=== PATIENT | female | born 1935 | race Caucasian/White ===

== ENCOUNTER 2017-05-15 16:06 | Emergency (ER) ==
[2017-05-15 16:10] VITALS: BP 172/72; TEMP 97.5; BMI 39.6
--- NOTE | 2017-05-15 16:28 | ED.PDOC ---
General ED Provider: Dr. KAYLAH JOE JR Chief Complaint: Back Pain Stated Complaint: back started hurting on monday and got better then woke up hurting monday. complains of pain to right lumbar area radiating to her knee [ End ]97.5 89 20 95% 172/72 10 Time Seen by Physician: 16:25 Mode of Arrival: Wheelchair Information Source: Patient Exam Limitations: No limitations Primary Care Provider: APOLINAR BARNES Nursing and Triage Documentation Reviewed and Agree: No Review of Systems - Review Of Systems Constitutional: Reports: No symptoms Eyes: Reports: No symptoms Ears, Nose, Mouth, Throat: Reports: No symptoms Respiratory: Reports: No symptoms Cardiac: Reports: No symptoms GI: Reports: No symptoms : Reports: No symptoms Musculoskeletal: Reports: Back pain, Joint pain Skin: Reports: No symptoms Neurological: Reports: No symptoms Endocrine: Reports: No symptoms Hematologic/Lymphatic: Reports: No symptoms All Other Systems: Other Past Medical History - Past Medical History Endocrine: Reports: Hypothyroid Cardiovascular: Reports: Hypertension, CHF Respiratory: Reports: COPD Hematological: Reports: None Gastrointestinal: Reports: None Genitourinary: Reports: CKD Neuro/Psych: Reports: Anxiety, Depression Musculoskeletal: Reports: None Cancer: Reports: None Last Menstrual Period: none - Surgical History General Surgical History: Reports: Hysterectomy, Orthopedic (Bilateral Knee replacement), Unknown - Family History Family History: Reports: Unknown - Social History Smoking Status: Former smoker Hx Substance Use: No Alcohol Screening: None Physical Exam - Physical Exam Appearance: Well-appearing, Obese Pain Distress: Moderate Eyes: JORDAN, EOMI, Conjunctiva clear ENT: Ears normal, Nose normal, Oropharynx normal Neck: Supple Respiratory: Airway patent, Breath sounds clear, Breath sounds equal, Respirations nonlabored Cardiovascular: RRR, Pulses normal, No rub, No murmur GI/: Soft, Nontender, No masses, Bowel sounds normal, No Organomegaly Musculoskeletal: Normal strength, ROM intact, No edema, No calf tenderness ( tender right lat thigh and paraspinal area on left also bilteral lower leg tenderness(chronic)), Calf tenderness (chronic- improved per patient) Skin: Warm, Dry, Normal color Neurological: Sensation intact, Motor intact, Reflexes intact, Cranial nerves intact, Alert, Oriented Psychiatric: Affect appropriate, Mood appropriate Interpretation - Radiology Interpretation Radiology Interpretation By: Radiologist Radiology Results: No acute changes Exam Interpreted: Other (knee) Critical Care Note - Critical Care Note Total Time (mins): 0 Course - Course Orders, Labs, Meds: Lab Review 05/15/17 17:05 Urine Color Yellow Urine Clarity Clear Urine pH 7.0 Ur Specific [place] 1.015 Urine Protein Negative Urine Glucose (UA) Negative Urine Ketones Negative Urine Blood Trace-intact Urine Nitrite Negative Urine Bilirubin Negative Urine Urobilinogen 0.2 Ur Leukocyte Esterase Negative Urine Microscopic RBC 0-2 Ur Squamous Epith Cells 0-2 Urine Bacteria Trace Orders Category Date Time Status UA [URINALYSIS C & S IF INDICATED] Stat LAB 05/15/17 17:05 Completed Acetaminophen with Codeine [Tylenol #3 Tab] MEDS 05/15/17 16:34 Discontinued 1 tab PO ONCE STA CT LUMBAR SPINE W/O CONTRAST Stat RADS 05/15/17 16:26 Completed KNEE, RIGHT 4 VIEWS Stat RADS 05/15/17 16:26 Completed Medications Discontinued Medications Generic Name Dose Route Start Last Admin Trade Name Freq PRN Reason Stop Dose Admin Acetaminophen/Codeine Phosphate 1 tab 05/15/17 16:34 05/15/17 17:10 Tylenol #3 Tab PO 05/15/17 16:35 1 tab ONCE STA Administration Vital Signs: Temp Pulse Resp BP Pulse Ox 05/15/17 16:06 97.5 F L 89 20 172/72 H 95 Departure - Departure Time of Disposition: 17:43 Disposition: HOME SELF-CARE Discharge Problem: Back pain with right-sided sciatica, Microscopic hematuria Instructions: Sciatica (ED), Acute Low Back Pain (ED), Lower Back Exercises (ED ), Hematuria (ED) Condition: Good Pt referred to PMD for follow-up: Yes Additional Instructions: daily light exercise Tylenol #3 as needed for pain recommend recheck urine 1-2 weeks trace of blood today Please follow-up with Dr. Barnes in 1-5 days. Prescriptions: Acetaminophen with Codeine [Tylenol #3 Tab] 1 - 2 tab PO QID PRN #20 tablet PRN Reason: PAIN Allergies/Adverse Reactions: Allergies hydrocodone [From Lortab] Adverse Reaction (Verified 05/15/17 16:11) meperidine HCl [From Demerol] Adverse Reaction (Verified 05/15/17 16:11) pregabalin [From Lyrica] Adverse Reaction (Verified 05/15/17 16:11) Home Medications: Ambulatory Orders Citalopram Hydrobromide [Celexa] 20 mg PO DAILY 11/21/13 Clonazepam [Klonopin] 0.5 mg PO BID 11/21/13 Levothyroxine Sodium [Synthroid] 75 mcg PO QDAC 11/21/13 Montelukast Sodium [Singulair] 10 mg PO BEDTIME 11/21/13 Tramadol HCl [Ultram] 50 mg PO TID PRN 11/21/13 Fluticasone/Salmeterol 250/50 [Advair 250-50 Diskus] 1 puff IH BID 07/17/16 Nitroglycerin [Nitrostat] 0.4 mg SL Q5MIN X 3 DOSES PRN 07/17/16 Nystatin [Nystop Powder] 1 applic TP BID 07/17/16 Potassium Chloride [K-Dur] 20 meq PO TID 07/17/16 Pravastatin Sodium [Pravachol] 80 mg PO DAILY 07/17/16 Acetaminophen with Codeine [Tylenol #3 Tab] 1 - 2 tab PO QID PRN #20 tablet Allopurinol [Zyloprim] 100 mg PO DAILY 05/15/17 Metolazone [Zaroxolyn] 2.5 mg PO 3 TIMES PER WEEK 05/15/17 Pantoprazole Sodium 40 mg PO BID 05/15/17 Triamcinolone Acetonide [Triamcinolone Acetonide 0.1% Cream] 80 gm TP TID PRN
[2017-05-15] MEDS ORDERED: TYLENOL #3 TAB PO STA (16:34)
--- NOTE | 2017-05-15 16:58 | DI ---
EXAM: Four views of the right knee. History: Right knee pain. Findings: No acute fracture or dislocation. Grossly intact right total knee arthroplasty hardware. Diffuse subcutaneous edema. Atherosclerotic vascular calcifications appear mild Impression: No acute osseous abnormality. Intact hardware. Diffuse subcutaneous edema.
--- NOTE | 2017-05-15 17:06 | CT ---
EXAM: CT of the lumbar spine without contrast History: Lower back pain. Technique: Multiplanar CT images through the lumbar spine were obtained without the administration of IV contrast Findings: Atherosclerotic vascular calcifications. Colonic diverticulosis. Osteopenia. Mild dext roscoliosis centered within the mid lumbar spine. Mild degenerative changes of bilateral sacroiliac joints. Severe degenerative disc disease at L3-L4, L4, L5 and L5-S1 with endplate sclerosis and osteophyte f ormation. Mild to moderate degenerative disc disease at L2-L3. No acute fracture or subluxation. T12-L1: No significant disc bulge, central canal stenosis or neural foraminal narrowing. L1-L2: No significant disc bulge, central canal stenosis or neural foraminal narrowing. L2-L3: Small disc bulge effacing the anterior thecal sac with no significant central canal stenosis . Mild to moderate bilateral bony neural foraminal narrowing secondary to ligamentous and facet hyp ertrophy. L3-L4: Posterior disc osteophyte complex mildly narrowing the central canal. Severe left and modera te to severe right bony neural foraminal narrowing secondary to ligamentous and facet hypertrophy. L4-L5: Posterior disc osteophyte complex mildly narrowing the central canal. Severe bilateral bony neural foraminal narrowing secondary to ligamentous and facet hypertrophy. L5, S1: Small posterior disc osteophyte complex mildly narrowing central canal. Severe bilateral b verna neural foraminal narrowing secondary to ligamentous and facet hypertrophy. Impression: 1. No acute osseous abnormality of the lumbar spine. 2. Severe degenerative disc disease. 3. Level by level analysis as detailed above with multilevel mild central canal stenosis and severe neural foraminal narrowing within the lower lumbar spine. 4. Colonic diverticulosis.
[2017-05-15 17:23] LABS: ADD URINE MICROSCOPIC YES; BILIRUBIN,URINE Negative (NEGATIVE); KETONES,URINE Negative (NEGATIVE); LEUKOCYTE ESTERASE ,URINE Negative (NEGATIVE); NITRITE,URINE Negative (NEGATIVE); PROTEIN,URINE Negative (NEGATIVE); URINE, BLOOD Trace-intact (NEGATIVE)
[2017-05-15 17:28] LABS: BACTERIA,URINE TRACE (NOT PRESENT)
== END 2017-05-15 17:54 | disposition home or self-care (01) ==
LOC: ED 16:06
DX: M54.41 Lumbago with sciatica, right side (principal); R31.29 Other microscopic hematuria; M25.561 Pain in right knee; Z79.899 Other long term (current) drug therapy
CPT/HCPCS: 81001; 99283

== ENCOUNTER 2017-05-29 06:34 | Day surgery (SDC) ==
[2017-05-29] MEDS ORDERED: TETRACAINE 0.5% OPTH SOL OP ONE ×3 (07:10→07:40)
[2017-05-29] MEDS ORDERED: AK-DILATE 10% OPTH SOL OP ONE ×3 (07:10→07:20)
[2017-05-29] MEDS ORDERED: CYCLOGYL 2% OPTH OP ONE ×3 (07:10→07:20)
[2017-05-29] MEDS ORDERED: OCUFEN 0.03% OPTH SOL OP ONE ×3 (07:10→07:40)
[2017-05-29] MEDS ORDERED: LIDOCAINE 1% 20 ML MDV ID ONE (07:17)
[2017-05-29] MEDS ORDERED: ALBUTEROL 0.083% NEB NEB STA (07:37)
[2017-05-29] MEDS ORDERED: DIAMOX PO ONE (09:16)
[2017-05-29] MEDS ORDERED: DIAMOX ONE (09:16)
[2017-05-29] MEDS ORDERED: SUBLIMAZE ONE (09:30)
[2017-05-29] MEDS ORDERED: VERSED ONE (09:30)
[2017-05-29 09:34] VITALS: BP 130/68; TEMP 97.6
[2017-05-29] MEDS ORDERED: VOLTAREN 0.1% OPTH SOL OP PRN (12:56)
[2017-05-29] MEDS ORDERED: OCUFEN 0.03% OPTH SOL OP PRN (12:56)
[2017-05-29] MEDS ORDERED: AK-DILATE 10% OPTH SOL OP PRN (12:56)
[2017-05-29] MEDS ORDERED: TETRACAINE 0.5% UNIT-DOSE OP PRN (12:56)
[2017-05-29] MEDS ORDERED: CYCLOGYL 2% OPTH OP PRN (12:56)
--- NOTE | 2017-05-29 13:22 | OP ---
PREOPERATIVE DIAGNOSIS: CATARACT, LEFT EYE. POSTOPERATIVE DIAGNOSIS: SAME. OPERATION PHACOEMULSIFICATION ASPIRATION OF CATARACT LEFT EYE. PLACEMENT OF POSTERIOR CHAMBER LENS. PHACO TIME 1:08.2 SECONDS AT 16% POWER. LENS MODEL CHARLIE [id number]. DIOPTER +25.0D. TECHNIQUE: CLEAR CORNEA. ANESTHESIA: TOPICAL ANESTHESIA W/ANESTHESIA MONITORING. OPERATIVE REPORT: Topical anesthesia consisting of Tetracaine was applied to the cornea and Xylocaine Methyl Paraben free of MFP was injected intracamerally into the anterior chamber. The patient was then brought into the operating room , prepped and draped in the usual ophthalmic manner. A lid speculum was placed and the operating microscope was used. A paracentesis was made at the 3 o' clock position. A clear corneal incision was made just out to the limbus. The anterior chamber was entered just inside the clear cornea. Viscoelastic was injected into the anterior chamber. A capsulotomy was performed with a bent # 27 gauge needle. Phacoemulsification was then performed in the posterior chamber. After completion of the phacoemulsification, residual cortical material was aspirated with the irrigation-aspiration system. The posterior capsule was polished. Viscoelastic was injected into the anterior and posterior chambers to inflate the capsular bag. Lens were placed via an Unfolder system and stabilized in the bag. Viscoelastic was removed from the anterior chamber. The wound was checked for any leakage. The four sponges were removed from the fornix. Topical antibiotic steroid and nonsteroidal drops were also applied to the cornea. A Young shield was applied. The patient left the operating room in good condition without any complications. INTRAOPERATIVE MEDICATIONS: Xylocaine Methyl Paraben Free MPF MTDD
== END 2017-05-29 10:12 | disposition home or self-care (01) ==
LOC: SURG 06:34
PROVIDERS: ATTEND Ophthalmology
DX: H25.13 Age-related nuclear cataract, bilateral (principal)
CPT/HCPCS: 94640

== ENCOUNTER 2017-07-31 08:22 | Day surgery (SDC) | payer OTHER ==
[2017-07-31] MEDS: TETRACAINE 0.5% UNIT-DOSE OP PRN ×3 (11:00→11:30)
[2017-07-31] MEDS: CYCLOGYL 2% OPTH OP PRN ×3 (11:00→11:10)
[2017-07-31] MEDS: AK-DILATE 10% OPTH SOL OP PRN ×3 (11:00→11:10)
[2017-07-31] MEDS: KETOROLAC 0.5% OPTH SOL OP PRN ×3 (11:00→11:30)
[2017-07-31] MEDS ORDERED: LIDOCAINE 1% 20 ML MDV ID ONE (11:18)
[2017-07-31] MEDS ORDERED: VERSED ONE (11:30)
[2017-07-31] MEDS ORDERED: BETADINE OPTH PREP OP ONE ×2 (12:04)
[2017-07-31] MEDS ORDERED: TIMOPTIC 0.5% OPTH OP ONE (12:04)
[2017-07-31] MEDS ORDERED: OCUFEN 0.03% OPTH SOL OP ONE (12:04)
[2017-07-31] MEDS ORDERED: OCUFLOX 0.3% OPTH SOL OP ONE (12:04)
[2017-07-31] MEDS ORDERED: DIAMOX PO ONE (13:17)
[2017-07-31 13:42] VITALS: BP 127/63; TEMP 98.7
--- NOTE | 2017-08-01 08:37 | OP ---
PREOPERATIVE DIAGNOSIS: RIGHT EYE. POSTOPERATIVE DIAGNOSIS: SAME. OPERATION PHACOEMULSIFICATION ASPIRATION OF CATARACT RIGHT EYE. PLACEMENT OF POSTERIOR CHAMBER LENS. PHACO TIME 1:15 SECONDS AT 13.0% POWER. LENS MODEL CHARLIE [id number]. DIOPTER +25.5D. TECHNIQUE: CLEAR CORNEA. ANESTHESIA: TOPICAL ANESTHESIA W/ANESTHESIA MONITORING. OPERATIVE REPORT: Topical anesthesia consisting of Tetracaine was applied to the cornea and Xylocaine Methyl Paraben free of MFP was injected intracamerally into the anterior chamber. The patient was then brought into the operating room , prepped and draped in the usual ophthalmic manner. A lid speculum was placed and the operating microscope was used. A paracentesis was made at the 3 o' clock position. A clear corneal incision was made just out to the limbus. The anterior chamber was entered just inside the clear cornea. Viscoelastic was injected into the anterior chamber. A capsulotomy was performed with a bent # 27 gauge needle. Phacoemulsification was then performed in the posterior chamber. After completion of the phacoemulsification, residual cortical material was aspirated with the irrigation-aspiration system. The posterior capsule was polished. Viscoelastic was injected into the anterior and posterior chambers to inflate the capsular bag. Lens were placed via an Unfolder system and stabilized in the bag. Viscoelastic was removed from the anterior chamber. The wound was checked for any leakage. The four sponges were removed from the fornix. Topical antibiotic steroid and nonsteroidal drops were also applied to the cornea. A Young shield was applied. The patient left the operating room in good condition without any complications. INTRAOPERATIVE MEDICATIONS: Xylocaine Methyl Paraben Free MPF MTDD
== END 2017-07-31 13:51 | disposition home or self-care (01) ==
LOC: SURG 08:22
PROVIDERS: ATTEND Ophthalmology
DX: H25.11 Age-related nuclear cataract, right eye (principal); Z96.1 Presence of intraocular lens

== ENCOUNTER 2017-12-18 19:37 | Inpatient (IN) ==
[2017-12-18] MEDS ORDERED: SOLU-MEDROL 125 MG IVP STA (20:08)
[2017-12-18] MEDS ORDERED: DUONEB NEB STA (20:08)
--- NOTE | 2017-12-18 20:15 | ED.PDOC ---
General ED Provider: Dr. HERMINIO ABERNATHY Chief Complaint: Shortness of Air Stated Complaint: Patient had the flu approximately three weeks ago. Patient states that since that time she has had generalized body pain and shortness of air that has gotten increasingly worse. Time Seen by Physician: 19:49 Mode of Arrival: Walk-In Information Source: Patient Primary Care Provider: APLOINAR BARNES Nursing and Triage Documentation Reviewed and Agree: Yes Reviewed sepsis parameters & appropriate labs ordered?: Yes System Inflammatory Response Syndrome: Not Applicable Sepsis Protocol: For patient's 13 years and over: Temp is 96.8 and below OR 101 and greater Pulse >90 BPM Resp >20/minute Acutely Altered Mental Status Are patient's symptoms suggestive of a new infection, such as: -Pneumonia -Skin, Soft Tissue -Endocarditis -UTI -Bone, Joint Infection -Implantable Device -Acute Abdominal Infection -Wound Infection -Meningitis -Blood Stream Catheter Infection -Unknown System Inflammatory Response Syndrome: Not Applicable Review of Systems - Review Of Systems Constitutional: Reports: Malaise, Weakness, Loss of appetite, Other (weight loss ) Respiratory: Reports: Cough, Short of air, Wheezing Cardiac: Reports: No symptoms GI: Reports: Nausea, Poor appetite, Poor fluid intake. Denies: Vomiting : Reports: No symptoms Musculoskeletal: Reports: No symptoms Skin: Reports: No symptoms Neurological: Reports: Anxiety Hematologic/Lymphatic: Reports: No symptoms All Other Systems: Reviewed and Negative Past Medical History - Past Medical History Endocrine: Reports: Hypothyroid Cardiovascular: Reports: Hypertension, CHF Respiratory: Reports: COPD Hematological: Reports: None Gastrointestinal: Reports: None Genitourinary: Reports: CKD Neuro/Psych: Reports: Anxiety, Depression Musculoskeletal: Reports: None Cancer: Reports: None Last Menstrual Period: HYSTERECTOMY - Surgical History General Surgical History: Reports: Hysterectomy, Orthopedic (Bilateral Knee replacement), Unknown - Family History Family History: Reports: Unknown - Social History Smoking Status: Former smoker Hx Substance Use: No Alcohol Screening: None - Immunizations Tetanus Shot up to Date: No Physical Exam - Physical Exam Appearance: Ill-appearing Pain Distress: Mild Neck: Supple Respiratory: Breath sounds diminished, Wheezes Cardiovascular: RRR, Pulses normal, No rub, No murmur GI/: Soft, Nontender, No masses, Bowel sounds normal, No Organomegaly Musculoskeletal: Normal strength, ROM intact, No edema, No calf tenderness Skin: Warm, Dry, Normal color Neurological: Alert, Oriented Psychiatric: Anxious Interpretation - Radiology Interpretation Radiology Interpretation By: Radiologist Radiology Results: Negative Re-Evaluation - Re-Evaluation Time of Re-Evaluation: 22:00 Status: Improved Vital Signs Stable: Yes Pain Level: mild Physician Notification - Case Discussed Physician Notified: Barnes Time of Notification: 21:43 ([facility] Critical Care Note - Critical Care Note Total Time (mins): 35 Course - Course Hematology/Chemistry: 12/18/17 20:12 12/18/17 20:12 Orders, Labs, Meds: Lab Review 12/18/17 12/18/17 12/18/17 20:09 20:12 20:12 WBC 9.37 RBC 4.38 Hgb 13.9 Hct 40.7 MCV 92.9 MCH 31.7 H MCHC 34.2 RDW Coeff of Michael 12.7 Plt Count 302 Immature Gran % (Auto) 0.7 Neut % (Auto) 78.4 Lymph % (Auto) 11.4 [place] % (Auto) 7.5 Eos % (Auto) 1.5 Baso % (Auto) 0.5 Immature Gran # (Auto) 0.1 Neut # 7.3 H Lymph # 1.1 [place] # 0.7 Eos # 0.1 Baso # 0.1 Puncture Site Rr O2 Saturation 98.0 ABG pH 7.521 H* ABG pCO2 28.3 L ABG pO2 85.0 ABG HCO3 23.1 ABG Total CO2 24 ABG Base Excess 0 Bobby Test + FiO2 % 21.0 Sodium 141 Potassium 3.2 L Chloride 104 Carbon Dioxide 25 Anion Gap 15.2 BUN 34 H Creatinine 1.49 H Estimated GFR (MDRD) 34.00 BUN/Creatinine Ratio 22.81 Glucose 169 H Lactic Acid Calcium 10.3 H Total Bilirubin 0.7 AST 13 L ALT 12 Alkaline Phosphatase 65 Total Protein 7.9 Albumin 3.3 L Globulin 4.6 Albumin/Globulin Ratio 0.72 Procalcitonin Influenza A (Rapid) Influenza B (Rapid) 12/18/17 12/18/17 12/18/17 20:12 20:12 20:12 WBC RBC Hgb Hct MCV MCH MCHC RDW Coeff of Michael Plt Count Immature Gran % (Auto) Neut % (Auto) Lymph % (Auto) [place] % (Auto) Eos % (Auto) Baso % (Auto) Immature Gran # (Auto) Neut # Lymph # [place] # Eos # Baso # Puncture Site O2 Saturation ABG pH ABG pCO2 ABG pO2 ABG HCO3 ABG Total CO2 ABG Base Excess Bobby Test FiO2 % Sodium Potassium Chloride Carbon Dioxide Anion Gap BUN Creatinine Estimated GFR (MDRD) BUN/Creatinine Ratio Glucose Lactic Acid 15.6 Calcium Total Bilirubin AST ALT Alkaline Phosphatase Total Protein Albumin Globulin Albumin/Globulin Ratio Procalcitonin 0.08 Influenza A (Rapid) Negative by naat Influenza B (Rapid) Negative by naat Orders Category Date Time Status ABG DRAW REQUEST Stat CARDIO 12/18/17 20:09 Completed NEBULIZER TREATMENT Routine CARDIO 12/18/17 21:55 Ordered NEBULIZER TREATMENT Stat CARDIO 12/18/17 20:09 Completed ACTIVITY .Early Mobilization for VTE Prevention CARE 12/18/17 21:53 Ordered INTAKE & OUTPUT Q8HR CARE 12/18/17 21:53 Ordered IV ACCESS ONCE CARE 12/18/17 19:59 Active VITAL SIGNS Q4HR CARE 12/18/17 21:53 Ordered REGULAR DIET DIETARY 12/18/17 Breakfast Ordered ED APPLY O2 .ONCE EMERGENCY 12/18/17 19:59 Active ED TEA BAG MACHINE TENDER APPLIED .ONCE EMERGENCY 12/18/17 19:59 Active ED VITAL SIGNS Q1HR EMERGENCY 12/18/17 19:59 Active ABG Stat LAB 12/18/17 20:09 Completed BASIC METABOLIC PANEL DAILY@0600 LAB 12/19/17 06:00 Ordered BASIC METABOLIC PANEL DAILY@0600 LAB 12/20/17 06:00 Ordered CBC W/ AUTO DIFF DAILY@0600 LAB 12/19/17 06:00 Ordered CBC W/ AUTO DIFF DAILY@0600 LAB 12/20/17 06:00 Ordered CBC W/ AUTO DIFF Stat LAB 12/18/17 20:12 Completed COMPREHENSIVE METABOLIC PANEL Stat LAB 12/18/17 20:12 Completed FLU A/B MOLECULAR Stat LAB 12/18/17 20:12 Completed LACTIC ACID Stat LAB 12/18/17 20:12 Completed MOLECULAR GROUP A STREP Stat LAB 12/18/17 20:12 Completed PROCALCITONIN Stat LAB 12/18/17 20:12 Completed Allopurinol [Zyloprim] MEDS 12/19/17 09:00 Ordered 100 mg PO DAILY Aspirin [Aspirin EC] MEDS 12/19/17 08:00 Ordered 81 mg PO DAILYWM Azithromycin [Zithromax] MEDS 12/18/17 21:53 Stat 500 mg PO ONCE STA Ceftriaxone Sodium [Rocephin] 1 gm MEDS 12/18/17 22:00 Ordered 0.9 % Sodium Chloride [Sodium Chloride] 50 ml IV DAILY Citalopram Hydrobromide [Celexa] MEDS 12/19/17 09:00 Ordered 20 mg PO DAILY Clonazepam [Klonopin] MEDS 12/19/17 09:00 Ordered 0.5 mg PO BID Fluticasone/Salmeterol 250/50 [Advair 250-50 Diskus] MEDS 12/19/17 09:00 Ordered 1 puff IH BID Ipratropium/Albuterol Neb [Duoneb] MEDS 12/18/17 20:08 Discontinued 1 vial NEB ONCE STA Ipratropium/Albuterol Neb [Duoneb] MEDS 12/19/17 06:00 Ordered 1 vial NEB RTQID Levothyroxine Sodium [Synthroid] MEDS 12/19/17 06:30 Ordered 75 mcg PO QDAC Methylprednisolone Sod Succ/Pf [Solu-Medrol 125 mg] MEDS 12/18/17 20:08 Discontinued 125 mg IVP ONCE STA Methylprednisolone Sod Succ/Pf [Solu-Medrol 125 mg] MEDS 12/19/17 05:00 Ordered 125 mg IVP Q8HR Metolazone [Zaroxolyn] MEDS 12/18/17 22:00 Ordered 2.5 mg PO 3 TIMES PER WEEK Metoprolol Succinate [Toprol Xl] MEDS 12/19/17 09:00 Ordered 50 mg PO DAILY Montelukast Sodium [Singulair] MEDS 12/19/17 21:00 Ordered 10 mg PO BEDTIME Nitroglycerin [Nitrostat] MEDS 12/18/17 21:56 Ordered 0.4 mg SL Q5MIN X 3 DOSES PRN Nystatin [Nystop Powder] MEDS 12/19/17 09:00 Ordered 1 applic TP BID Parker-3 Fatty Acids/Fish Oil [Fish Oil 1,000 mg Capsule MEDS 12/19/17 09:00 Ordered ] 1 each PO BID Pantoprazole Sodium [Protonix] MEDS 12/19/17 09:00 Ordered 40 mg PO BID Potassium Chloride [K-Dur] MEDS 12/19/17 09:00 Ordered 20 meq PO TID Pravastatin Sodium [Pravachol] MEDS 12/19/17 09:00 Ordered 80 mg PO DAILY Sodium Chloride 0.9% [Sodium Chloride] 1,000 ml MEDS 12/18/17 22:00 Ordered IV 100 mls/hr Tolterodine Tartrate MEDS 12/19/17 09:00 Ordered 4 mg PO DAILY Tramadol HCl [Ultram] MEDS 12/18/17 21:56 Ordered 50 mg PO TID PRN RESUSCITATION STATUS Routine OTHERS 12/18/17 21:53 Ordered CHEST, 1V AP ONLY Stat RADS 12/18/17 19:59 Completed PT CONSULT Routine THERAPIES 12/18/17 Ordered Medications Generic Name Dose Route Start Last Admin Trade Name Freq PRN Reason Stop Dose Admin Albuterol/Ipratropium 1 vial 12/19/17 06:00 Duoneb NEB RTQID KADNACE Allopurinol 100 mg 12/19/17 09:00 Zyloprim PO DAILY [facility] Aspirin 81 mg 12/19/17 08:00 Aspirin Ec PO DAILYWM [facility] Citalopram Hydrobromide 20 mg 12/19/17 09:00 Celexa PO DAILY KANDACE Clonazepam 0.5 mg 12/19/17 09:00 Klonopin PO BID [facility] Ceftriaxone Sodium 1 gm/ 50 mls @ 75 mls/hr 12/18/17 22:00 Sodium Chloride IV DAILY KANDACE Sodium Chloride 1,000 mls @ 100 mls/hr 12/18/17 22:00 Sodium Chloride IV .Q10H [facility] Levothyroxine Sodium 75 mcg 12/19/17 06:30 Synthroid PO QDAC [facility] Methylprednisolone Sodium Succinate 125 mg 12/19/17 05:00 Solu-Medrol 125 Mg IVP Q8HR [facility] Metolazone 2.5 mg 12/18/17 22:00 Zaroxolyn PO 3 TIMES PER WEEK KANDACE Metoprolol Succinate 50 mg 12/19/17 09:00 Toprol Xl PO DAILY [facility] Montelukast Sodium 10 mg 12/19/17 21:00 Singulair PO BEDTIME KANDACE Non-Formulary Medication 1 each 12/19/17 09:00 Parker-3 Fatty Acids/Fish Oil [Fish Oil 1,000 Mg Capsule] PO BID KANDACE Nystatin 1 applic 12/19/17 09:00 Nystop Powder TP BID KANDACE Pantoprazole Sodium 40 mg 12/19/17 09:00 Protonix PO BID KANDACE Potassium Chloride 20 meq 12/19/17 09:00 K-Dur PO TID KANDACE Fluticasone/Salmeterol 1 puff 12/19/17 09:00 Advair 250-50 Diskus IH BID KANDACE Discontinued Medications Generic Name Dose Route Start Last Admin Trade Name Freq PRN Reason Stop Dose Admin Albuterol/Ipratropium 1 vial 12/18/17 20:08 12/18/17 20:40 Duoneb NEB 12/18/17 20:09 1 vial ONCE STA Administration Azithromycin 500 mg 12/18/17 21:53 Zithromax PO 12/18/17 21:54 ONCE STA Methylprednisolone Sodium Succinate 125 mg 12/18/17 20:08 Solu-Medrol 125 Mg IVP 12/18/17 20:09 ONCE STA Vital Signs: Temp Pulse Resp BP Pulse Ox 12/18/17 20:08 86 26 H 144/78 H 12/18/17 19:37 98.0 F 90 20 137/73 93 L Departure - Departure Time of Disposition: 22:02 Disposition: ADMITTED INPATIENT Discharge Problem: COPD exacerbation Condition: Stable Pt referred to PMD for follow-up: Yes IPMP verified?: No Allergies/Adverse Reactions: Allergies hydrocodone [From Lortab] Adverse Reaction (Verified 12/18/17 19:42) meperidine HCl [From Demerol] Adverse Reaction (Verified 12/18/17 19:42) pregabalin [From Lyrica] Adverse Reaction (Verified 12/18/17 19:42) Home Medications: Ambulatory Orders Citalopram Hydrobromide [Celexa] 20 mg PO DAILY 11/21/13 Clonazepam [Klonopin] 0.5 mg PO BID 11/21/13 Levothyroxine Sodium [Synthroid] 75 mcg PO QDAC 11/21/13 Montelukast Sodium [Singulair] 10 mg PO BEDTIME 11/21/13 Tramadol HCl [Ultram] 50 mg PO TID PRN 11/21/13 Fluticasone/Salmeterol 250/50 [Advair 250-50 Diskus] 1 puff IH BID 07/17/16 Nitroglycerin [Nitrostat] 0.4 mg SL Q5MIN X 3 DOSES PRN 07/17/16 Nystatin [Nystop Powder] 1 applic TP BID 07/17/16 Potassium Chloride [K-Dur] 20 meq PO TID 07/17/16 Pravastatin Sodium [Pravachol] 80 mg PO DAILY 07/17/16 Allopurinol [Zyloprim] 100 mg PO DAILY 05/15/17 Metolazone [Zaroxolyn] 2.5 mg PO 3 TIMES PER WEEK 05/15/17 Pantoprazole Sodium 40 mg PO BID 05/15/17 Aspirin [Aspirin EC] 81 mg PO DAILYWM 07/28/17 Metoprolol Succinate [Toprol Xl] 50 mg PO DAILY 07/28/17 Parker-3 Fatty Acids/Fish Oil [Fish Oil 1,000 mg Capsule] 1 each PO BID 07/28/17 Tolterodine Tartrate [Detrol LA] 4 mg PO DAILY 07/28/17
--- NOTE | 2017-12-18 20:54 | DI ---
EXAM: Chest, one-view HISTORY: Cough FINDINGS: Cardiac and mediastinal contours are normal. Pulmonary vasculature is normal. Lungs are clear. Atherosclerotic calcification of the aorta. Bony thorax is unremarkable. IMPRESSION: No acute cardiopulmonary disease.
[2017-12-18] MEDS ORDERED: ZITHROMAX PO STA (21:53)
[2017-12-18] MEDS ORDERED: ULTRAM PO PRN (21:56)
[2017-12-18] MEDS ORDERED: NITROSTAT SL PRN (21:56)
[2017-12-18] MEDS ORDERED: ROCEPHIN 1 GM in SODIUM CHLORIDE 50 ML IV SCH (22:00)
[2017-12-18] MEDS ORDERED: SODIUM CHLORIDE 1,000 ML IV SCH (22:00)
[2017-12-18] MEDS ORDERED: ZAROXOLYN PO SCH (22:00)
[2017-12-18] MEDS ORDERED: K-DUR PO STA (22:34)
[2017-12-18] MEDS ORDERED: ROCEPHIN ONE (22:40)
[2017-12-18 23:25] VITALS: BMI 35.2
[2017-12-18] MEDS: TESSALON PERLES PO SCH (23:26)
[2017-12-18] MEDS ORDERED: SODIUM CHLORIDE 50 ML IV ONE (23:26)
[2017-12-18] MEDS: SODIUM CHLORIDE 1,000 ML IV SCH (23:26)
[2017-12-19] MEDS: SOLU-MEDROL 125 MG IVP SCH ×3 (04:24→20:09)
[2017-12-19] MEDS ORDERED: SYNTHROID PO SCH (06:30)
[2017-12-19] MEDS: DUONEB NEB SCH ×4 (06:30→20:14)
[2017-12-19] MEDS: ADVAIR 250-50 DISKUS IH SCH ×2 (08:45→20:09)
[2017-12-19] MEDS: NYSTOP POWDER TP SCH ×2 (08:45→20:10)
[2017-12-19] MEDS: ASPIRIN EC PO SCH (08:46)
[2017-12-19] MEDS: TESSALON PERLES PO SCH ×3 (08:46→20:10)
[2017-12-19] MEDS: TOPROL XL PO SCH (08:46)
[2017-12-19] MEDS: PROTONIX PO SCH ×2 (08:46→16:10)
[2017-12-19] MEDS: OMEGA-3 FISH OIL PO SCH ×2 (08:47→20:10)
[2017-12-19] MEDS: ZYLOPRIM PO SCH (08:47)
[2017-12-19] MEDS: PRAVACHOL PO SCH (08:47)
[2017-12-19] MEDS: ZITHROMAX PO SCH (08:47)
--- NOTE | 2017-12-19 08:58 | PCM.PROG ---
Attending Provider: ATTENDING PROVIDER: Dr. APOLINAR BARNES This patient is seen with Liana Solis, Nurse Practitioner. DATE OF SERVICE: 12/19/17 SUBJECTIVE: This 82 year old WHITE/ F was hospitalized 12/18/17. The patient is sitting on side of bed, alert. Shortness of breath slightly improved. She has been up to bathroom. REVIEW OF SYSTEMS: CONSTITUTIONAL: No night sweats. No fatigue, malaise, lethargy. No fever or chills. HEENT: Eyes: No visual changes. No eye pain. No eye discharge. ENT: No runny nose. No epistaxis. No sinus pain. No odynophagia. No congestion. RESPIRATORY: Cough and wheezing. No hemoptysis. No shortness of breath. CARDIOVASCULAR: No angina symptoms. No CHF symptoms. No atypical chest pain for CAD. No palpitations. No orthopnea.. GASTROINTESTINAL: No abdominal pain. No nausea or vomiting. No diarrhea or constipation. No hematemesis. No hematochezia. GENITOURINARY: No urgency. No frequency. No dysuria. No hematuria. No obstructive symptoms. No discharge. No pain. No significant abnormal bleeding. MUSCULOSKELETAL: No musculoskeletal pain; no joint swelling. NEUROLOGICAL: Awake, alert, oriented to time, place and person. No headache. No neck pain. No syncope. No seizures. No dizziness. PSYCHIATRIC: Not anxious. No depression. No suicidal thoughts. No homicidal thoughts. SKIN: No rash. No lesions. No wounds. ENDOCRINE: No unexplained weight loss. No weight gain. HEMATOLOGIC/LYMPHATIC: No anemia. No purpura. No petechiae. No prolonged or excessive bleeding. No palpable lymph nodes. PHYSICAL EXAMINATION: GENERAL: The patient is awake, alert and oriented, lying in bed in no distress. VITAL SIGNS: Temperature 97.6 F, Pulse 84, Respiratory Rate 18, BP 120/60, Pulse Ox 94% HEENT: Head normocephalic, atraumatic. Eyes: Extraocular muscles are intact. Pupils are equal, round and reactive to light and accommodation. Ears: No lesions. Nose appeared normal. Throat: No exudate or erythema. NECK: Supple. No JVD, no carotid bruit. No lymphadenopathy or thyromegaly. LUNGS: Diminished breath sounds bilaterally with expiratory wheezing. Percussion note normal. Chest symmetrical. HEART: S1, S2, no S3. No murmurs. No cyanosis or clubbing. No ascites. Pulses: Dorsalis pedis and posterior tibial pulses +1 to +2 both sides. ABDOMEN: Soft. Non-tender. Bowel sounds active. No CVA tenderness. No mass felt. EXTREMITIES: Trace leg edema. Full range of motion of all extremities, equal. NEUROLOGIC: No focal deficit. Cranial nerves II through XII are grossly intact. No headache, no double vision or headache. SKIN: Not dry. Intact. Turgor-normal. LYMPHATIC: No palpable lymph nodes/no lymphedema. MUSCULOSKELETAL: Normal joints with no swelling. Muscle tone is normal. LAB REVIEW: 12/19/17 05:10 12/19/17 05:10 12/19/17 05:10: Sodium 137, Potassium 4.0, Chloride 104, Carbon Dioxide 20 L, Anion Gap 17.0, BUN 33 H, Creatinine 1.58 H, Estimated GFR (MDRD) 31.00, BUN/ Creatinine Ratio 20.88, Glucose 347 H D, Calcium 9.5 12/19/17 05:10: WBC 9.95, RBC 3.94 L, Hgb 12.3, Hct 36.9 L, MCV 93.7, MCH 31.2 H , MCHC 33.3, RDW Coeff of Michael 12.6, Plt Count 283, Immature Gran % (Auto) 0.9, Neut % (Auto) 89.8, Lymph % (Auto) 8.5 L, [place] % (Auto) 0.6, Eos % (Auto) 0.0, Baso % (Auto) 0.2, Immature Gran # (Auto) 0.1, Neut # 8.9 H, Lymph # 0.9, [place] # 0.1 L, Eos # 0.0, Baso # 0.0 ASSESSMENT: ACUTE BRONCHITIS SOB COPD WITH EXACERBATION ACUTE ON CHRONIC KIDNEY DISEASE PLAN: Make Potassium 20 daily Continue Iv fluids and nebs Plan and coordination of the patient's care discussed in the presence of Out Patient Therapist and nurse. CONDITION: Stable SCRIBED BY: SERGE MONK Cloth Worker scribed while in presence of service performed by Dr. Barnes/Liana Solis APRN on 12/19/17 ([id number])
[2017-12-19] MEDS ORDERED: NON-FORMULARY MEDICATION (Pravastatin Sodium [Pravachol] 80 MG) PO SCH (09:00)
[2017-12-19] MEDS ORDERED: CELEXA PO SCH (09:00)
[2017-12-19] MEDS ORDERED: KLONOPIN PO SCH (09:00)
[2017-12-19] MEDS ORDERED: NON-FORMULARY MEDICATION (Tolterodine Tartrate 4 MG) PO SCH (09:00)
[2017-12-19] MEDS ORDERED: NON-FORMULARY MEDICATION (Omega-3 Fatty Acids/Fish Oil [Fish Oil 1,000 Mg Capsule] 1 EACH) PO SCH (09:00)
[2017-12-19] MEDS ORDERED: K-DUR PO SCH (09:00)
[2017-12-19] MEDS ORDERED: MYLICON PO STA (10:51)
--- NOTE | 2017-12-19 14:32 | PN ---
DATE OF SERVICE: 12/18/17 SUBJECTIVE: 82 year old white female hospitalized with acute bronchitis and chronic lung disease. The patient has bronchitis type of symptoms for past 2-3 weeks. It is the point where she is unable to rest at night and she has lost 10-15 pounds. The patient has no symptoms of congestive heart failure or coronary insufficiency. The patient's atrial blood gasses are excellent with pO2 of more than 75 with oxygen saturation 97% on room air with normal pH. Electrolyte and CBC was normal except for potassium of 3.2 for which she will be given extra Potassium supplements. The patient has history of smoking with COPD and also has coronary artery disease. ASSESSMENT: 1. Acute bronchitis with COPD 2. Cardiovascular status is stable. PLAN: 1. Given Rocephin,Zithromax, steroids, NEBS treatments and IV fluids at 50cc per hour CONDITION: Stable. TIME SPENT: More than 30 minutes. Plan and coordination of the patient's care discussed in the presence of nurse. DESIRE
[2017-12-19] MEDS: CELEXA PO SCH (20:09)
[2017-12-19] MEDS: KLONOPIN PO SCH (20:09)
[2017-12-19] MEDS: ROCEPHIN 1 GM in SODIUM CHLORIDE 50 ML IV SCH (20:09)
[2017-12-19] MEDS: DITROPAN XL PO SCH (20:10)
[2017-12-19] MEDS: SINGULAIR PO SCH (20:10)
[2017-12-19] MEDS: GI COCKTAIL PO PRN (20:44)
[2017-12-20] MEDS: SOLU-MEDROL 125 MG IVP SCH ×3 (05:33→20:29)
[2017-12-20] MEDS: PROTONIX PO SCH ×2 (05:35→17:14)
[2017-12-20] MEDS: SYNTHROID PO SCH (05:35)
[2017-12-20] MEDS: DUONEB NEB SCH (05:48)
[2017-12-20] MEDS ORDERED: DUONEB NEB PRN (08:35)
[2017-12-20] MEDS: ASPIRIN EC PO SCH (09:33)
[2017-12-20] MEDS: OMEGA-3 FISH OIL PO SCH ×2 (09:33→20:29)
[2017-12-20] MEDS: ADVAIR 250-50 DISKUS IH SCH ×2 (09:33→20:30)
[2017-12-20] MEDS: TOPROL XL PO SCH (09:34)
[2017-12-20] MEDS: K-DUR PO SCH (09:34)
[2017-12-20] MEDS: ZYLOPRIM PO SCH (09:34)
[2017-12-20] MEDS: TESSALON PERLES PO SCH ×3 (09:34→20:29)
[2017-12-20] MEDS: NYSTOP POWDER TP SCH ×2 (09:34→20:30)
[2017-12-20] MEDS: ZITHROMAX PO SCH (09:34)
[2017-12-20] MEDS: PRAVACHOL PO SCH (09:34)
--- NOTE | 2017-12-20 09:34 | DI ---
EXAM: Fluoroscopic upper GI HISTORY: Difficulty swallowing. Patient with extensive medical history and difficulty changing posit ion and remaining upright.. COMPARISON: CT abdomen 07/19/2016 FINDINGS: Effervescent crystals were administered to patient prior to examination. Real time fluoros copic evaluation was performed with images provided for purposes of dictation. There is no focal dil atation or stenosis. There is no filling defect or mass. There are tertiary waves of the distal eso phagus with a small hiatal hernia present. Throughout this examination. There is mild to moderate r eflux into the distal esophagus. The stomach is distended with no visualized filling defect or mass. Patient was unable to reposition while lying down and and subsequent upright image demonstrated con trast extending into the duodenum and crossing midline. IMPRESSION: 1. No stenosis, mass or focal dilatation of the esophagus. 2. Tertiary waves are consistent with dysmotility. 3. Small hiatal hernia and mild to moderate reflux.
--- NOTE | 2017-12-20 11:25 | PCM.PROG ---
Attending Provider: ATTENDING PROVIDER: Dr. APOLINAR BARNES DATE OF SERVICE: 12/20/17 SUBJECTIVE: This 82 year old WHITE/ F was hospitalized 12/18/17 hospitalized with acute asthmatic bronchitis which seems to have improved. She has problems related to esophagus, swallowing and reflux. No CHF or coronary insufficiency problems. She has lost 15 lbs according to her. No fever, no chills. Not much cough. REVIEW OF SYSTEMS: CONSTITUTIONAL: No night sweats. No fatigue, malaise, lethargy. No fever or chills. HEENT: Eyes: No visual changes. No eye pain. No eye discharge. ENT: No runny nose. No epistaxis. No sinus pain. No odynophagia. No congestion. RESPIRATORY: No cough, no congestion. No hemoptysis. No shortness of breath. CARDIOVASCULAR: No angina symptoms. No CHF symptoms. No atypical chest pain for CAD. No palpitations. No orthopnea.. GASTROINTESTINAL: No abdominal pain. No nausea or vomiting. No diarrhea or constipation. No hematemesis. No hematochezia. GENITOURINARY: No urgency. No frequency. No dysuria. No hematuria. No obstructive symptoms. No discharge. No pain. No significant abnormal bleeding. MUSCULOSKELETAL: No musculoskeletal pain; no joint swelling. NEUROLOGICAL: Awake, alert, oriented to time, place and person. No headache. No neck pain. No syncope. No seizures. No dizziness. PSYCHIATRIC: Not anxious. No depression. No suicidal thoughts. No homicidal thoughts. SKIN: No rash. No lesions. No wounds. ENDOCRINE: No unexplained weight loss. No weight gain. HEMATOLOGIC/LYMPHATIC: No anemia. No purpura. No petechiae. No prolonged or excessive bleeding. No palpable lymph nodes. PHYSICAL EXAMINATION: GENERAL: The patient is awake, alert and oriented, sitting in bed in no distress. VITAL SIGNS: Temperature 98.3 F, Pulse 89, Respiratory Rate 16, BP 116/63, Pulse Ox 93% HEENT: Head normocephalic, atraumatic. Eyes: Extraocular muscles are intact. Pupils are equal, round and reactive to light and accommodation. Ears: No lesions. Nose appeared normal. Throat: No exudate or erythema. NECK: Supple. No JVD, no carotid bruit. No lymphadenopathy or thyromegaly. LUNGS: Decreased breath sounds. Clear to auscultation. Percussion note normal. Chest symmetrical. HEART: S1, S2, no S3. No murmurs. No cyanosis or clubbing. No ascites. Pulses: Dorsalis pedis and posterior tibial pulses +1 to +2 both sides. ABDOMEN: Soft. Non-tender. Bowel sounds active. No CVA tenderness. No mass felt. EXTREMITIES: No edema. Full range of motion of all extremities, equal. NEUROLOGIC: No focal deficit. Cranial nerves II through XII are grossly intact. No headache, no double vision or headache. SKIN: Warm and dry. Intact. Turgor-normal. LYMPHATIC: No palpable lymph nodes/no lymphedema. MUSCULOSKELETAL: Normal joints with no swelling. Muscle tone is normal. LAB REVIEW: 12/20/17 04:50 12/20/17 04:50 12/20/17 04:50: Sodium 138, Potassium 4.2, Chloride 105, Carbon Dioxide 20 L, Anion Gap 17.2, BUN 32 H, Creatinine 1.48 H, Estimated GFR (MDRD) 34.00, BUN/ Creatinine Ratio 21.62, Glucose 229 H D, Calcium 10.1 12/20/17 04:50: WBC 18.66 H D, RBC 3.68 L, Hgb 11.8 L, Hct 34.1 L, MCV 92.7, MCH 32.1 H, MCHC 34.6, RDW Coeff of Michael 13.0, Plt Count 302, Immature Gran % ( Auto) 1.0, Neut % (Auto) 87.9, Lymph % (Auto) 6.2 L, [place] % (Auto) 4.8, Eos % ( Auto) 0.0, Baso % (Auto) 0.1, Immature Gran # (Auto) 0.2, Neut # (Auto) 16.4 H, Lymph # (Auto) 1.2, [place] # (Auto) 0.9, Eos # (Auto) 0.0, Baso # (Auto) 0.0 12/19/17 10:45: Total Creatine Kinase 57, Troponin I 0.0200 ASSESSMENT: 1. Acute asthmatic bronchitis 2. She use to be a smoker - quit 3. Coronary artery disease 4. Chronic lung disease 5. Obesity 6. Chronic kidney disease 7. Anemia 8. Dysphagia 9. Diabetes mellitus PLAN: 1. Barium swallow 2. Reflux measures 3. Increase Protonix to 40 mg 4. May have to refer to gastroenteritis 5. GI cocktail 6. Upper GI 7. Discussed with patient not to eat late at night; no coffee or chocolate late at night (three hours before bedtime) Plan and coordination of the patient's care discussed in the presence of Lacquer Dipping Machine Operator and nurse. CONDITION: Stable SCRIBED BY: SERGE MONK Outreach Representative scribed while in presence of service performed by Dr. APOLINAR BARNES on 12/20/17 ([id number])
[2017-12-20] MEDS: GI COCKTAIL PO PRN (12:13)
[2017-12-20] MEDS: SODIUM CHLORIDE 1,000 ML IV SCH (12:30)
[2017-12-20] MEDS: SINGULAIR PO SCH (20:29)
[2017-12-20] MEDS: CELEXA PO SCH (20:29)
[2017-12-20] MEDS: ROCEPHIN 1 GM in SODIUM CHLORIDE 50 ML IV SCH (20:29)
[2017-12-20] MEDS: DITROPAN XL PO SCH (20:29)
[2017-12-20] MEDS: KLONOPIN PO SCH (20:29)
[2017-12-21] MEDS: PROTONIX PO SCH ×2 (05:58→16:59)
[2017-12-21] MEDS: SOLU-MEDROL 125 MG IVP SCH ×3 (05:58→22:03)
[2017-12-21] MEDS: SYNTHROID PO SCH (05:58)
[2017-12-21] MEDS: ASPIRIN EC PO SCH (09:05)
[2017-12-21] MEDS: ZYLOPRIM PO SCH (09:06)
[2017-12-21] MEDS: TOPROL XL PO SCH (09:06)
[2017-12-21] MEDS: OMEGA-3 FISH OIL PO SCH ×2 (09:06→21:22)
[2017-12-21] MEDS: PRAVACHOL PO SCH (09:06)
[2017-12-21] MEDS: TESSALON PERLES PO SCH ×3 (09:06→21:23)
[2017-12-21] MEDS: K-DUR PO SCH (09:06)
[2017-12-21] MEDS: REGLAN PO SCH ×2 (09:06→16:59)
[2017-12-21] MEDS: ADVAIR 250-50 DISKUS IH SCH ×2 (09:07→21:23)
[2017-12-21] MEDS: NYSTOP POWDER TP SCH ×2 (09:07→21:23)
--- NOTE | 2017-12-21 09:52 | HP ---
DATE OF SERVICE: 12/18/17 HISTORY OF PRESENT ILLNESS: This is an 82-year-old female with history of COPD who presented to the emergency room with coughing and shortness of breath. She stated that she has had coughing and chest congestion off and on for the past several weeks, last night started getting worse. PAST MEDICAL HISTORY: Severe osteoarthritis Degenerative joint disease of the C-spine Hypertension Coronary artery disease Chronic kidney disease, Stage 3 to 4 History of CHF COPD, wears 02 at night Dyslipidemia Depression History of right upper lobe nodule B12 deficiency PAST SURGICAL HISTORY: Right RCA 2009 Stent placement REVIEW OF SYSTEMS: CONSTITUTIONAL: Positive for fatigue. No night sweats. No malaise, lethargy. No fever or chills. HEENT: Eyes: No visual changes. No eye pain. No eye discharge. ENT: No runny nose. No epistaxis. No sinus pain. No sore throat. No odynophagia. No ear pain. No congestion. RESPIRATORY: Positive for cough. No congestion. No hemoptysis. Positive for shortness of breath. CARDIOVASCULAR: No angina symptoms. No CHF symptoms. No atypical chest pain for CAD. No palpitations. No orthopnea. GASTROINTESTINAL: No abdominal pain. No nausea or vomiting. No diarrhea or constipation. No hematemesis. No hematochezia. GENITOURINARY: No urgency. No frequency. No dysuria. No hematuria. No obstructive symptoms. No discharge. No pain. No significant abnormal bleeding. MUSCULOSKELETAL: No musculoskeletal pain. No joint swelling. No arthritis. NEUROLOGICAL: No headache. No neck pain. No syncope. No seizures. No dizziness. PSYCHIATRIC: Not anxious. No depression. No suicidal thoughts. No homicidal thoughts. SKIN: No rash. No lesions. No wounds. ENDOCRINE: No unexplained weight loss. No weight gain. HEMATOLOGIC/LYMPHATIC: No anemia. No purpura. No petechiae. No prolonged or excessive bleeding. No palpable lymph nodes. PERSONAL/FAMILY/SOCIAL HISTORY: The patient is a previous smoker. She currently lives at home by herself. No alcohol or illicit drug use. MEDICATIONS: (HOME) Celexa 20 mg p.o. daily Klonopin 0.5 mg p.o. b.i.d. Synthroid 75 mcg p.o. q.d a.c. Singulair 10 mg p.o. bedtime Ultram 50 mg p.o. t.i.d. p.r.n. Nystatin one application TP b.i.d. Advair one puff IH b.i.d. Pravachol 80 mg p.o. daily Nitrostat 0.4 mg SL q.5 min times three doses p.r.n. K-Dur 20 mEq p.o. t.i.d. Zaroxolyn 2.5 mg p.o. three times per week Zyloprim 100 mg p.o. daily Pantoprazole 40 mg p.o. b.i.d. Aspirin 81 mg p.o. daily with meal [place] 3 fatty acids/fish oil one each p.o. b.i.d. Toprol XL 50 mg p.o. daily Ditropan XL 5 mg p.o. bedtime Vasotec 5 mg p.o. daily ALLERGIES: HYDROCODONE, MEPERIDINE HCI, PREGABALIN PHYSICAL EXAMINATION: VITAL SIGNS: Temperature 97.6, heart rate 84, respirations 18, BP 120/60, pulse ox 94% on room air. HEENT: Head normocephalic, atraumatic. Eyes: Extraocular muscles are intact. Pupils are equal, round and reactive to light and accommodation. Ears: No lesions. Nose appeared normal. Throat: No exudate or erythema. NECK: Supple. No JVD, no carotid bruit. No lymphadenopathy or thyromegaly. LUNGS: Diminished breath sounds bilaterally with bilateral rhonchi and inspiratory and expiratory wheezing. Percussion note normal. Chest symmetrical. HEART: Regular heart sounds. S1, S2, no S3. No murmurs. No cyanosis or clubbing. No ascites. Pulses: Dorsalis pedis and posterior tibial pulses +1 to +2 both sides. ABDOMEN: Soft. Nontender. Bowel sounds active. No CVA tenderness. No mass felt. EXTREMITIES: Trace leg edema. Full range of motion of all extremities, equal. NEUROLOGIC: Alert and oriented times three. No focal deficit. Cranial nerves II through XII are grossly intact. No headache, no double vision or headache. SKIN: Not dry. Intact. Turgor - normal. LYMPHATIC: No palpable lymph nodes/no lymphedema. MUSCULOSKELETAL: Normal joints with no swelling. Muscle tone is normal. Chest x-ray revealed no acute cardiopulmonary disease. Sodium 141, potassium 3.2 , BUN 34, creatinine 1.49, glucose 169, total bili 0.7, AST 13, ALT 12, total protein 7.9. White count 9.37, hemoglobin 13.9, hematocrit 40.7, platelets 302. Rapid Flu A & B are both negative. ABGs on room air pH 7.521, pc02 28.3, p02 85 , base excess of 0, bicarb 23.1, TC02 24. ASSESSMENT: 1. ACUTE BRONCHITIS 2. COPD WITH EXACERBATION 3. SHORTNESS OF BREATH 4. ACUTE ON CHRONIC KIDNEY FAILURE WITH MILD DEHYDRATION 5. WEAKNESS PLAN: 1. We will admit 2. Place on NS IV at 75 cc/hr 3. Start Rocephin 1 gm IV daily 4. Zithromax 500 mg p.o. daily times three days 5. Start Solu-Cortef 125 mg IV q.8hr 6. Xopenex neb treatments q.6hr scheduled 7. Oxygen as needed 8. Tessalon Perles 200 mg t.i.d. as needed for cough 9. Continue home medications 10. Daily CBC, CMP 11. Regular low sodium diet 12. Will follow closely TIME SPENT: More than 70 minutes. MTDD
--- NOTE | 2017-12-21 11:26 | PCM.PROG ---
Attending Provider: ATTENDING PROVIDER: Dr. APOLINAR BARNES DATE OF SERVICE: 12/21/17 SUBJECTIVE: This 82 year old WHITE/ F was hospitalized 12/18/17 with COPD, and acute bronchitis. The patient had choking. Further workup showed she had tertiary waves consistent with esophageal dysmotility and also mild to moderate reflux. She will be treated with small dose of Reglan and proton pump inhibitors. REVIEW OF SYSTEMS: CONSTITUTIONAL: No night sweats. No fatigue, malaise, lethargy. No fever or chills. HEENT: Eyes: No visual changes. No eye pain. No eye discharge. ENT: No runny nose. No epistaxis. No sinus pain. Throat: Difficulty swallowing. No congestion. RESPIRATORY: Mild cough, no congestion. No hemoptysis. No shortness of breath. CARDIOVASCULAR: No angina symptoms. No CHF symptoms. No atypical chest pain for CAD. No palpitations. No orthopnea.. GASTROINTESTINAL: No abdominal pain. No nausea or vomiting. No diarrhea or constipation. No hematemesis. No hematochezia. GENITOURINARY: No urgency. No frequency. No dysuria. No hematuria. No obstructive symptoms. No discharge. No pain. No significant abnormal bleeding. MUSCULOSKELETAL: No musculoskeletal pain; no joint swelling. NEUROLOGICAL: Awake, alert, oriented to time, place and person. No headache. No neck pain. No syncope. No seizures. No dizziness. PSYCHIATRIC: Not anxious. No depression. No suicidal thoughts. No homicidal thoughts. SKIN: No rash. No lesions. No wounds. ENDOCRINE: No unexplained weight loss. No weight gain. HEMATOLOGIC/LYMPHATIC: No anemia. No purpura. No petechiae. No prolonged or excessive bleeding. No palpable lymph nodes. PHYSICAL EXAMINATION: GENERAL: The patient is awake, alert and oriented, lying/sitting in bed in no distress. VITAL SIGNS: Temperature 97.8 F, Pulse 80, Respiratory Rate 16, BP 126/60, Pulse Ox 95% HEENT: Head normocephalic, atraumatic. Eyes: Extraocular muscles are intact. Pupils are equal, round and reactive to light and accommodation. Ears: No lesions. Nose appeared normal. Throat: No exudate or erythema. NECK: Supple. No JVD, no carotid bruit. No lymphadenopathy or thyromegaly. LUNGS: Decreased breath sounds. Clear to auscultation. Percussion note normal. Chest symmetrical. HEART: S1, S2, no S3. No murmurs. No cyanosis or clubbing. No ascites. Pulses: Dorsalis pedis and posterior tibial pulses +1 to +2 both sides. ABDOMEN: Soft. Non-tender. Bowel sounds active. No CVA tenderness. No mass felt. EXTREMITIES: No edema. Full range of motion of all extremities, equal. NEUROLOGIC: No focal deficit. Cranial nerves II through XII are grossly intact. No headache, no double vision or headache. SKIN: Warm and dry. Intact. Turgor-normal. LYMPHATIC: No palpable lymph nodes/no lymphedema. MUSCULOSKELETAL: Normal joints with no swelling. Muscle tone is normal. LAB REVIEW: 12/21/17 05:00 12/21/17 05:00 12/21/17 05:00: Sodium 139, Potassium 4.7, Chloride 104, Carbon Dioxide 22 L, Anion Gap 17.7, BUN 38 H, Creatinine 1.43 H, Estimated GFR (MDRD) 35.00, BUN/ Creatinine Ratio 26.57, Glucose 198 H, Calcium 10.2, Total Bilirubin < 0.3, AST 27, ALT 22, Alkaline Phosphatase 80, Total Protein 7.1, Albumin 3.1 L, Globulin 4.0, Albumin/Globulin Ratio 0.78 12/21/17 05:00: WBC 18.63 H, RBC 3.82 L, Hgb 12.0, Hct 35.5 L, MCV 92.9, MCH 31.4 H, MCHC 33.8, RDW Coeff of Michael 13.1, Plt Count 303, Immature Gran % (Auto) 2.4, Neut % (Auto) 89.3, Lymph % (Auto) 3.9 L, [place] % (Auto) 4.3, Eos % (Auto) 0.0, Baso % (Auto) 0.1, Immature Gran # (Auto) 0.4, Neut # (Auto) 16.6 H, Lymph # (Auto) 0.7, [place] # (Auto) 0.8, Eos # (Auto) 0.0, Baso # (Auto) 0.0 ASSESSMENT: 1. Tertiary waves in esophagus, reflux 2. Bronchitis, resolving 3. Dysphagia from esdophageal dysmotility and reflux combination which could depend on each other 4. Coronary artery disease with no evidence of coronary artery insufficiency 5. COPD 6. BMI 35 PLAN: 1. Antireflux measures discussed. 2. Will give Reglan 5 mg twice a day. Side effects of Reglan discussed and will be for shortterm use. 3. Continue antibiotics, steroids and Proton Pump inhibitor. 4. The patient needs GI referral as outpatient. Plan and coordination of the patient's care discussed in the presence of Band Maker and nurse. CONDITION: Stable SCRIBED BY: SERGE MONK Outreach Rep scribed while in presence of service performed by Dr. APOLINAR BARNES on 12/21/17 ([id number])
[2017-12-21] MEDS: ROCEPHIN 1 GM in SODIUM CHLORIDE 50 ML IV SCH (21:21)
[2017-12-21] MEDS: KLONOPIN PO SCH (21:22)
[2017-12-21] MEDS: DITROPAN XL PO SCH (21:23)
[2017-12-21] MEDS: CELEXA PO SCH (21:23)
[2017-12-21] MEDS: SINGULAIR PO SCH (21:23)
[2017-12-22] MEDS: GI COCKTAIL PO PRN (04:28)
[2017-12-22] MEDS: SOLU-MEDROL 125 MG IVP SCH (04:28)
[2017-12-22] MEDS: REGLAN PO SCH ×2 (05:48→16:38)
[2017-12-22] MEDS: SYNTHROID PO SCH (05:48)
[2017-12-22] MEDS: PROTONIX PO SCH ×2 (05:48→16:38)
[2017-12-22] MEDS: ADVAIR 250-50 DISKUS IH SCH ×2 (08:48→22:22)
[2017-12-22] MEDS: NYSTOP POWDER TP SCH ×2 (08:48→22:21)
[2017-12-22] MEDS: TESSALON PERLES PO SCH (08:49)
[2017-12-22] MEDS: OMEGA-3 FISH OIL PO SCH ×2 (08:49→22:20)
[2017-12-22] MEDS: ZYLOPRIM PO SCH (08:49)
[2017-12-22] MEDS: K-DUR PO SCH (08:50)
[2017-12-22] MEDS: PRAVACHOL PO SCH (08:50)
[2017-12-22] MEDS: TOPROL XL PO SCH (08:50)
[2017-12-22] MEDS: ASPIRIN EC PO SCH (08:50)
--- NOTE | 2017-12-22 09:34 | PN ---
DATE OF SERVICE: 12/19/17 SUBJECTIVE: 82-year-old white female hospitalized with COPD, asthmatic bronchitis. The patient is a smoker and is obese with BMI of 35. PHYSICAL EXAMINATION: GENERAL: The patient is up and about. HEENT: Head normocephalic, atraumatic. Eyes: Extraocular muscles are intact. Pupils are equal, round and reactive to light and accommodation. Ears: No lesions. Nose appeared normal. Throat: No exudate or erythema. NECK: Supple. No JVD, no carotid bruit. No lymphadenopathy or thyromegaly. LUNGS: Decreased breath sounds but clear to auscultation. Percussion note normal. Chest symmetrical. HEART: S1, S2, no S3. No murmurs. No cyanosis or clubbing. No ascites. Pulses: Dorsalis pedis and posterior tibial pulses +1 to +2 both sides. ABDOMEN: Soft. Nontender. Bowel sounds active. No CVA tenderness. No mass felt. EXTREMITIES: No edema. Full range of motion of all extremities, equal. NEUROLOGIC: No focal deficit. Cranial nerves II through XII are grossly intact. No headache, no double vision or headache. SKIN: Not dry. Intact. Turgor - normal. LYMPHATIC: No palpable lymph nodes/no lymphedema. MUSCULOSKELETAL: Normal joints with no swelling. Muscle tone is normal. The patient is being treated with Zithromax, Rocephin and also nebs treatment and steroids. Condition improving. The patient was seen and examined with the nurse practitioner. TIME SPENT: More than 30 minutes. Plan and coordination of the patient's care discussed in the presence of nurse. DESIER
[2017-12-22] MEDS: PREDNISONE PO SCH (10:14)
--- NOTE | 2017-12-22 11:19 | PCM.PROG ---
Attending Provider: ATTENDING PROVIDER: Dr. APOLINAR BARNES This patient is seen with Liana Solis, Nurse Practitioner. DATE OF SERVICE: 12/22/17 SUBJECTIVE: This 82 year old WHITE/ F was hospitalized 12/18/17. Sitting in chair , eating breakfast, is alert. She had some abdominal discomfort last night. She has a GI appointment on 02/13/18. She has started Reglan will add Carafate today. REVIEW OF SYSTEMS: CONSTITUTIONAL: No night sweats. No fatigue, malaise, lethargy. No fever or chills. HEENT: Eyes: No visual changes. No eye pain. No eye discharge. ENT: No runny nose. No epistaxis. No sinus pain. No odynophagia. No congestion. RESPIRATORY: Positive for cough. No congestion. No hemoptysis. No shortness of breath. CARDIOVASCULAR: No angina symptoms. No CHF symptoms. No atypical chest pain for CAD. No palpitations. No orthopnea.. GASTROINTESTINAL: Heartburn. No abdominal pain. No nausea or vomiting. No diarrhea or constipation. No hematemesis. No hematochezia. GENITOURINARY: No urgency. No frequency. No dysuria. No hematuria. No obstructive symptoms. No discharge. No pain. No significant abnormal bleeding. MUSCULOSKELETAL: No musculoskeletal pain; no joint swelling. NEUROLOGICAL: Awake, alert, oriented to time, place and person. No headache. No neck pain. No syncope. No seizures. No dizziness. PSYCHIATRIC: Not anxious. No depression. No suicidal thoughts. No homicidal thoughts. SKIN: No rash. No lesions. No wounds. ENDOCRINE: No unexplained weight loss. No weight gain. HEMATOLOGIC/LYMPHATIC: No anemia. No purpura. No petechiae. No prolonged or excessive bleeding. No palpable lymph nodes. PHYSICAL EXAMINATION: GENERAL: The patient is awake, alert and oriented, sitting in chair in no distress. VITAL SIGNS: Temperature 97.6 F, Pulse 88, Respiratory Rate 20, BP 138/74, Pulse Ox 94% HEENT: Head normocephalic, atraumatic. Eyes: Extraocular muscles are intact. Pupils are equal, round and reactive to light and accommodation. Ears: No lesions. Nose appeared normal. Throat: No exudate or erythema. NECK: Supple. No JVD, no carotid bruit. No lymphadenopathy or thyromegaly. LUNGS: Diminished breath sounds bilaterally. Clear to auscultation. Percussion note normal. Chest symmetrical. HEART: S1, S2, no S3. No murmurs. No cyanosis or clubbing. No ascites. Pulses: Dorsalis pedis and posterior tibial pulses +1 to +2 both sides. ABDOMEN: Soft. Non-tender. Bowel sounds active. No CVA tenderness. No mass felt. EXTREMITIES: Trace leg edema. Full range of motion of all extremities, equal. NEUROLOGIC: No focal deficit. Cranial nerves II through XII are grossly intact. No headache, no double vision or headache. SKIN: Not dry. Intact. Turgor-normal. LYMPHATIC: No palpable lymph nodes/no lymphedema. MUSCULOSKELETAL: Normal joints with no swelling. Muscle tone is normal. LAB REVIEW: 12/22/17 05:30 12/22/17 05:30 12/22/17 05:30: Sodium 137, Potassium 4.2, Chloride 105, Carbon Dioxide 21 L, Anion Gap 15.2, BUN 44 H, Creatinine 1.54 H, Estimated GFR (MDRD) 32.00, BUN/ Creatinine Ratio 28.57, Glucose 261 H, Calcium 9.8, Total Bilirubin < 0.3, AST 21, ALT 26, Alkaline Phosphatase 79, Total Protein 6.7, Albumin 3.0 L, Globulin 3.7, Albumin/Globulin Ratio 0.81 12/22/17 05:30: WBC 13.82 H, RBC 3.73 L, Hgb 11.7 L, Hct 35.1 L, MCV 94.1, MCH 31.4 H, MCHC 33.3, RDW Coeff of Michael 13.0, Plt Count 281, Immature Gran % (Auto) 2.5, Neut % (Auto) 87.6, Lymph % (Auto) 5.9 L, [place] % (Auto) 3.9, Eos % (Auto) 0.0, Baso % (Auto) 0.1, Immature Gran # (Auto) 0.3, Neut # (Auto) 12.1 H, Lymph # (Auto) 0.8, [place] # (Auto) 0.5, Eos # (Auto) 0.0, Baso # (Auto) 0.0 ASSESSMENT: 1. Tertiary waves in esophagus, reflux 2. Bronchitis, resolving 3. Dysphagia from esophageal dysmotility and reflux combination which could depend on each other 4. Coronary artery disease with no evidence of coronary artery insufficiency 5. COPD 6. BMI 35 PLAN: 1. Prednisone 10 mg daily 2. D/C Solu-Medrol 3. Carafate q.i.d. Plan and coordination of the patient's care discussed in the presence of Pipe Connector and nurse. CONDITION: Stable SCRIBED BY: SERGE MONK Buildings Painter scribed while in presence of service performed by Dr. Barnes/Liana Solis APRN on 12/22/17 ([id number])
[2017-12-22] MEDS: CALMOSEPTINE OINTMENT TP SCH ×2 (11:39→22:22)
[2017-12-22] MEDS: CARAFATE PO SCH ×3 (11:41→22:20)
[2017-12-22] MEDS ORDERED: TESSALON PERLES PO PRN (14:37)
[2017-12-22] MEDS: ROCEPHIN 1 GM in SODIUM CHLORIDE 50 ML IV SCH (22:18)
[2017-12-22] MEDS: SINGULAIR PO SCH (22:20)
[2017-12-22] MEDS: CELEXA PO SCH (22:20)
[2017-12-22] MEDS: KLONOPIN PO SCH (22:21)
[2017-12-22] MEDS: DITROPAN XL PO SCH (22:21)
[2017-12-23] MEDS: REGLAN PO SCH ×2 (06:16→16:50)
[2017-12-23] MEDS: PROTONIX PO SCH ×2 (06:16→16:50)
[2017-12-23] MEDS: SYNTHROID PO SCH (06:16)
[2017-12-23] MEDS: CARAFATE PO SCH ×4 (06:18→20:48)
[2017-12-23] MEDS: ADVAIR 250-50 DISKUS IH SCH ×2 (09:03→20:54)
[2017-12-23] MEDS: K-DUR PO SCH (09:04)
[2017-12-23] MEDS: ASPIRIN EC PO SCH (09:04)
[2017-12-23] MEDS: CALMOSEPTINE OINTMENT TP SCH ×2 (09:04→20:50)
[2017-12-23] MEDS: OMEGA-3 FISH OIL PO SCH ×2 (09:05→20:49)
[2017-12-23] MEDS: NYSTOP POWDER TP SCH ×2 (09:05→20:50)
[2017-12-23] MEDS: PREDNISONE PO SCH (09:06)
[2017-12-23] MEDS: PRAVACHOL PO SCH (09:06)
[2017-12-23] MEDS: TOPROL XL PO SCH (09:07)
[2017-12-23] MEDS: ZYLOPRIM PO SCH (09:07)
[2017-12-23] MEDS: ROCEPHIN 1 GM in SODIUM CHLORIDE 50 ML IV SCH (20:47)
[2017-12-23] MEDS: KLONOPIN PO SCH (20:48)
[2017-12-23] MEDS: CELEXA PO SCH (20:48)
[2017-12-23] MEDS: DITROPAN XL PO SCH (20:49)
[2017-12-23] MEDS: SINGULAIR PO SCH (20:49)
[2017-12-24] MEDS: SYNTHROID PO SCH (05:52)
[2017-12-24] MEDS: CARAFATE PO SCH ×4 (05:52→20:35)
[2017-12-24] MEDS: PROTONIX PO SCH ×2 (05:52→17:08)
[2017-12-24] MEDS: REGLAN PO SCH ×2 (05:53→17:08)
[2017-12-24] MEDS: ADVAIR 250-50 DISKUS IH SCH ×2 (09:21→20:35)
[2017-12-24] MEDS: CALMOSEPTINE OINTMENT TP SCH ×2 (09:21→20:35)
[2017-12-24] MEDS: ASPIRIN EC PO SCH (09:21)
[2017-12-24] MEDS: NYSTOP POWDER TP SCH ×2 (09:22→20:37)
[2017-12-24] MEDS: PRAVACHOL PO SCH (09:23)
[2017-12-24] MEDS: K-DUR PO SCH (09:23)
[2017-12-24] MEDS: OMEGA-3 FISH OIL PO SCH ×2 (09:23→20:36)
[2017-12-24] MEDS: PREDNISONE PO SCH (09:24)
[2017-12-24] MEDS: ZYLOPRIM PO SCH (09:24)
[2017-12-24] MEDS: TOPROL XL PO SCH (09:24)
[2017-12-24] MEDS ORDERED: LIDOCAINE HCL 1% SDV IM STA (18:19)
[2017-12-24] MEDS ORDERED: LIDOCAINE 1% 20 ML MDV ONE (20:08)
[2017-12-24] MEDS: KLONOPIN PO SCH (20:35)
[2017-12-24] MEDS: SINGULAIR PO SCH (20:36)
[2017-12-24] MEDS: DITROPAN XL PO SCH (20:36)
[2017-12-24] MEDS: CELEXA PO SCH (20:36)
[2017-12-24] MEDS ORDERED: LIDOCAINE HCL 1% SDV IM SCH (21:00)
[2017-12-24] MEDS ORDERED: ROCEPHIN IM SCH (21:00)
[2017-12-25] MEDS: CARAFATE PO SCH ×2 (05:29→12:19)
[2017-12-25] MEDS: REGLAN PO SCH (05:29)
[2017-12-25] MEDS: PROTONIX PO SCH (05:29)
[2017-12-25] MEDS: SYNTHROID PO SCH (05:29)
[2017-12-25] MEDS: ASPIRIN EC PO SCH (09:21)
[2017-12-25] MEDS: PREDNISONE PO SCH (09:22)
[2017-12-25] MEDS: K-DUR PO SCH (09:22)
[2017-12-25] MEDS: OMEGA-3 FISH OIL PO SCH (09:22)
[2017-12-25] MEDS: PRAVACHOL PO SCH (09:22)
[2017-12-25] MEDS: ZYLOPRIM PO SCH (09:22)
[2017-12-25] MEDS: TOPROL XL PO SCH (09:22)
[2017-12-25] MEDS: ADVAIR 250-50 DISKUS IH SCH (09:23)
[2017-12-25] MEDS: CALMOSEPTINE OINTMENT TP SCH (09:23)
[2017-12-25] MEDS: NYSTOP POWDER TP SCH (09:23)
--- NOTE | 2017-12-25 10:27 | PCM.PROG ---
Attending Provider: ATTENDING PROVIDER: Dr. APOLINAR BOND This patient is seen with Liana Solis, Nurse Practitioner. DATE OF SERVICE: 12/25/17 SUBJECTIVE: This 82 year old WHITE/ F was hospitalized 12/18/17. The patient is sitting on the side of the bed, alert. She is ready to go home today. Abdominal pain has improved. No longer short of breath on room air. REVIEW OF SYSTEMS: CONSTITUTIONAL: No night sweats. No fatigue, malaise, lethargy. No fever or chills. HEENT: Eyes: No visual changes. No eye pain. No eye discharge. ENT: No runny nose. No epistaxis. No sinus pain. No odynophagia. No congestion. RESPIRATORY: No cough, no congestion. No hemoptysis. Shortness of breath on exertion. CARDIOVASCULAR: No angina symptoms. No CHF symptoms. No atypical chest pain for CAD. No palpitations. No orthopnea.. GASTROINTESTINAL: Positive for GERD. No abdominal pain. No nausea or vomiting. No diarrhea or constipation. No hematemesis. No hematochezia. GENITOURINARY: No urgency. No frequency. No dysuria. No hematuria. No obstructive symptoms. No discharge. No pain. No significant abnormal bleeding. MUSCULOSKELETAL: No musculoskeletal pain; no joint swelling. NEUROLOGICAL: Awake, alert, oriented to time, place and person. No headache. No neck pain. No syncope. No seizures. No dizziness. PSYCHIATRIC: Not anxious. No depression. No suicidal thoughts. No homicidal thoughts. SKIN: No rash. No lesions. No wounds. ENDOCRINE: No unexplained weight loss. No weight gain. HEMATOLOGIC/LYMPHATIC: No anemia. No purpura. No petechiae. No prolonged or excessive bleeding. No palpable lymph nodes. PHYSICAL EXAMINATION: GENERAL: The patient is awake, alert and oriented, sitting in bed in no distress. VITAL SIGNS: Temperature 98.7 F, Pulse 83, Respiratory Rate 20, BP 155/80, Pulse Ox 96% HEENT: Head normocephalic, atraumatic. Eyes: Extraocular muscles are intact. Pupils are equal, round and reactive to light and accommodation. Ears: No lesions. Nose appeared normal. Throat: No exudate or erythema. NECK: Supple. No JVD, no carotid bruit. No lymphadenopathy or thyromegaly. LUNGS: Diminished breath sounds bilaterally. Clear to auscultation. Percussion note normal. Chest symmetrical. HEART: S1, S2, no S3. No murmurs. No cyanosis or clubbing. No ascites. Pulses: Dorsalis pedis and posterior tibial pulses +1 to +2 both sides. ABDOMEN: Soft. Non-tender. Bowel sounds active. No CVA tenderness. No mass felt. EXTREMITIES: Trace leg edema. Full range of motion of all extremities, equal. NEUROLOGIC: No focal deficit. Cranial nerves II through XII are grossly intact. No headache, no double vision or headache. SKIN: Not dry. Intact. Turgor-normal. LYMPHATIC: No palpable lymph nodes/no lymphedema. MUSCULOSKELETAL: Normal joints with no swelling. Muscle tone is normal. LAB REVIEW: 12/24/17 04:30 12/24/17 04:30 ASSESSMENT: 1. Tertiary waves in esophagus, reflux 2. Bronchitis, resolving 3. Dysphagia from esophageal dysmotility and reflux combination which could depend on each other 4. Coronary artery disease with no evidence of coronary artery insufficiency 5. COPD 6. BMI 35 PLAN: 1. Keflex 500 mg t.i.d. for 5 days 2. Prednisone 10 mg daily for 5 days 3. Continue Carafate and Reglan along with Protonix 4. Keep appointment with GI, Ngoc Soni, in January 2018. Plan and coordination of the patient's care discussed in the presence of Taxation Inspector and nurse. CONDITION: Stable SCRIBED BY: SERGE MONK Zinc Plating Machine Operator scribed while in presence of service performed by Dr. Bond/Liana Solis APRN on 12/25/17 ([id number])
--- NOTE | 2017-12-25 12:57 | CM.DICTOOL ---
ADMISSION: 12/18/17 21:57 DISCHARGE: December, DATE OF SERVICE: 12/25/17 FINAL DIAGNOSIS COPD EXACERBATION HYPOKALEMIA, RESOLVED RECENT INFLUENZA HYPERTENSION CAD WITH STENT APPLICATION CHF GERD HIATAL HERNIA ESOPHAGEAL DYSMOTILITY PER UGI DYSLIPIDEMIA HYPOTHYROID PREVIOUS SMOKER BILATERAL TKR HYSTERECTOMY ECHOCARDIOGRAM 12/25/2017 [facility] WITH LVEF LAST VITALS Temp Pulse Resp BP Pulse Ox 98.9 F 73 18 130/74 96 12/25/17 10:00 12/25/17 10:00 12/25/17 10:00 12/25/17 10:00 12/25/17 10:00 ACTIVE HOME MEDICATIONS Enalapril Maleate (Vasoted) 5 mg PO Daily [facility] Last Admin: Allopurinol (Zyloprim) 100 mg PO DAILY [facility] Last Admin: 12/25/17 09:22 Dose: 100 mg Aspirin (Aspirin Ec) 81 mg PO DAILYWM [facility] Last Admin: 12/25/17 09:21 Dose: 81 mg Citalopram Hydrobromide (Celexa) 20 mg PO BEDTIME [facility] Last Admin: 12/24/17 20:36 Dose: 20 mg Clonazepam (Klonopin) 1 mg PO BEDTIME [facility] Last Admin: 12/24/17 20:35 Dose: 1 mg Fish Oil ([place]-3 Fish Oil) 1,000 mg PO BID [facility] Last Admin: 12/25/17 09:22 Dose: 1,000 mg Levothyroxine Sodium (Synthroid) 75 mcg PO QDAC [facility] Last Admin: 12/25/17 05:29 Dose: 75 mcg Metolazone (Zaroxolyn) 2.5 mg PO 3 TIMES PER WEEK [facility] Metoprolol Succinate (Toprol Xl) 50 mg PO DAILY [facility] Last Admin: 12/25/17 09:22 Dose: 50 mg Montelukast Sodium (Singulair) 10 mg PO BEDTIME [facility] Last Admin: 12/24/17 20:36 Dose: 10 mg Nitroglycerin (Nitrostat) 0.4 mg SL Q5MIN X 3 DOSES PRN PRN Reason: chest pain Last Admin: 12/19/17 10:48 Dose: 0.4 mg Nystatin (Nystop Powder) 1 applic TP BID [facility] Last Admin: 12/25/17 09:23 Dose: 1 applic Oxybutynin Chloride (Ditropan Xl) 5 mg PO BEDTIME [facility] Last Admin: 12/24/17 20:36 Dose: 5 mg Pantoprazole Sodium (Protonix) 40 mg PO BIDAC [facility] Last Admin: 12/25/17 05:29 Dose: 40 mg Potassium Chloride (K-Dur) 20 meq PO DAILYWM [facility] Last Admin: 12/25/17 09:22 Dose: 20 meq Pravastatin Sodium (Pravachol) 80 mg PO DAILY [facility] Last Admin: 12/25/17 09:22 Dose: 80 mg Fluticasone/Salmeterol (Advair 250-50 Diskus) 1 puff IH BID [facility] Last Admin: 12/25/17 09:23 Dose: Not Given Tramadol HCl (Ultram) 50 mg PO TID PRN PRN Reason: moderate pain ALLERGIES hydrocodone [From Lortab] Adverse Reaction (Verified 12/18/17 19:42) meperidine HCl [From Demerol] Adverse Reaction (Verified 12/18/17 19:42) pregabalin [From Lyrica] Adverse Reaction (Verified 12/18/17 19:42) NEW PRESCRIPTIONS: Reglan 5 mg BID AC Carafate Suspension 1 gram AC and HS Keflex 500 mg TID for 5 days Prednisone 10 mg Daily for 5 days SMOKING: Not Applicable DISEASE SPECIFIC EDUCATION: Hiatal Hernia GERD Appointments Medications LAB REVIEW: 12/24/17 04:30 12/24/17 04:30 PLAN: DISCHARGE HOME DIET: REGULAR TOLERATED AVOID EATING AFTER 7 PM AT NIGHT LIMIT CAFFEINE, CHOCOLATE SIT UPRIGHT FOR AT LEAST 30-60 MINUTES AFTER EATING ACTIVITY: RESUME TOLERATED AN APPOINTMENT IS SCHEDULED WITH DR. BARNES/ANNA JULIAN APRN ON JANUARY 01 AT 1 :15 AN APPOINTMENT IS SCHEDULED WITH DR. CAMARA (REUBEN IZQUIERDO APRN) ON FEBRUARY 13 AT 2PM MS. CAMPBELL IS ALERT AND ORIENTED X 3. SHE IS INDEPENDENT WITH ADL'S. THE PATIENT USES A STANDARD WALKER FOR AMBULATION, BUT IS ABLE TO TRANSFER AND AMBULATE WITHOUT STAFF ASSISTANCE. NO ABDOMINAL PAIN OR NAUSEA IS REPORTED. NO DIARRHEA REPORTED. THE APPETITE IS GOOD AT 75-100%. MS CAMPBELL IS CONTINENT OF BOWEL AND BLADDER, BUT WEARS DEPENDS UNDERGARMENTS DUE TO URINARY DRIBBLING. OXYGEN IS WORN AT NIGHT BY THE PATIENT AT 2 LITERS. SHE REPORTS SHE HAS HOME OXYGEN FOR THIS PURPOSE. SHE DOES NOT WEAR THE OXYGEN DURING THE DAY AND SATURATIONS ARE NOTED IN THE MID TO UPPER 90'S. THE SKIN IS INTACT AND FREE OF DECUBITUS ULCERS. SKIN AREA TO THE GLUTEAL FOLD IS PINK IN COLOR. APOLINAR BARNES MD ANNA JULIAN, CIVIL RIGHTS ATTORNEY
--- NOTE | 2017-12-25 13:00 | ECHO2D ---
Date of Exam: 12/25/17 Ordering Physician: DR. APOLINAR BARNES Room #: 109 Reason for Echo: SOB, FATIGUE, CAD M-Mode Normal Adult Results LV Dimensions Normal Adult Results AoV Opening excursions >1.6 >1.6 LVEDD-base- 3.5-5.8 4.3 Ao root dimensions 2.0-3.7 3.1 LVESD-base- 3.1-4.6 L. Atrium dimensions 1.9-3.8 4.6 Post. Wall thickness 0.8-1.1 1.2 IV septum (thickness) 0.7-1.2 1.2 Post. Wall excursion 0.72-1.3 NORMAL Septal motion NORMAL Systolic motion R. Ventricular cavity 1.5-2.0 NORMAL LVEF 60% 56% Paradoxical septal wall motion NORMAL 2-D : ENLARGED LEFT ATRIAL CAVITY--NORMAL VALVES--NORMAL LEFT VENTRICULAR CONTRACTILITY--NO EFFUSION, NO THROMBUS, NORMAL LEFT VENTRICLE SIZE M-MODE: MV: NORMAL AV: NORMAL TV: NORMAL PV: CHAMBER SIZE: ENLARGED LEFT ATRIAL CAVITY WALL MOTION: NORMAL PERICARDIUM: NORMAL INTERPRETATION: 1. BORDERLINE LEFT VENTRICULAR HYPERTROPHY 2. ENLARGED LEFT ATRIAL CAVITY 3. NORMAL LEFT VENTRICULAR CONTRACTILITY 4. NORMAL VALVES MTDD
[2017-12-25 14:16] VITALS: BP 137/74; TEMP 98.5
--- NOTE | 2017-12-26 09:13 | PN ---
CODING FOR BILLIN12/18/17 LEVEL 5 12/19/17 INTERMEDIATE 12/20/17 INTERMEDIATE 12/21/17 INTERMEDIATE 12/22/17 INTERMEDIATE 12/23/17 INTERMEDIATE 12/24/17 DISCHARGE MTDD
--- NOTE | 2017-12-26 14:39 | PN ---
DATE OF SERVICE: 12/25/17 SUBJECTIVE: This patient admitted with acute bronchitis, pneumonitis. The patient's cardiovascular status is stable. She is up and about. The patient was seen and examined with nurse pracitioner. PHYSICAL EXAMINATION: HEENT: Head normocephalic, atraumatic. Eyes: Extraocular muscles are intact. Pupils are equal, round and reactive to light and accommodation. Ears: No lesions. Nose appeared normal. Throat: No exudate or erythema. NECK: Supple. No JVD, no carotid bruit. No lymphadenopathy or thyromegaly. LUNGS: Decreased breath sounds but clear to auscultation. Percussion note normal. Chest symmetrical. HEART: S1, S2, no S3. No murmurs. No cyanosis or clubbing. No ascites. Pulses: Dorsalis pedis and posterior tibial pulses +1 to +2 both sides. ABDOMEN: Soft. Nontender. Bowel sounds active. No CVA tenderness. No mass felt. EXTREMITIES: No edema. Full range of motion of all extremities, equal. NEUROLOGIC: No focal deficit. Cranial nerves II through XII are grossly intact. No headache, no double vision or headache. SKIN: Not dry. Intact. Turgor - normal. LYMPHATIC: No palpable lymph nodes/no lymphedema. MUSCULOSKELETAL: Normal joints with no swelling. Muscle tone is normal. CONDITION: Stable TIME SPENT: More than 30 minutes. Plan and coordination of the patient's care discussed in the presence of nurse. DESIRE
--- NOTE | 2018-01-01 13:16 | PN ---
DATE OF SERVICE: 12/22/17 SUBJECTIVE: 82-year-old white female hospitalized with COPD with acute bronchitis. The patient is up and about doing well. Her condition is improving. The patient was seen and examined with the nurse practitioner. Will continue steroids, antibiotics and nebs treatment. TIME SPENT: More than 30 minutes. Plan and coordination of the patient's care discussed in the presence of nurse. DESIRE
--- NOTE | 2018-01-01 13:27 | PN ---
DATE OF SERVICE: 12/23/17 SUBJECTIVE: 82-year-old white female hospitalized with acute bronchitis, pneumonitis. The patient has COPD, asthma with history of smoking. She also has coronary artery disease, hypertension, hyperglycemia, chronic kidney disease. The patient is up and about feeling a lot better. Condition is stabilizing. PHYSICAL EXAMINATION: GENERAL: The patient is oriented to time, place and person. VITAL SIGNS: Temperature 98.4, pulse 68, respiratory rate 22, BP 164/75. Pulse ox 97%. HEENT: Head normocephalic, atraumatic. Eyes: Extraocular muscles are intact. Pupils are equal, round and reactive to light and accommodation. Ears: No lesions. Nose appeared normal. Throat: No exudate or erythema. NECK: Supple. No JVD, no carotid bruit. No lymphadenopathy or thyromegaly. LUNGS: Decreased breath sounds, clear to auscultation. Percussion note normal. Chest symmetrical. HEART: S1, S2, no S3. No murmurs. No cyanosis or clubbing. No ascites. Pulses: Dorsalis pedis and posterior tibial pulses +1 to +2 both sides. ABDOMEN: Soft. Nontender. Bowel sounds active. No CVA tenderness. No mass felt. EXTREMITIES: No edema. Full range of motion of all extremities, equal. NEUROLOGIC: No focal deficit. Cranial nerves II through XII are grossly intact. No headache, no double vision or headache. SKIN: Not dry. Intact. Turgor - normal. LYMPHATIC: No palpable lymph nodes/no lymphedema. MUSCULOSKELETAL: Normal joints with no swelling. Muscle tone is normal. ASSESSMENT: 1. ACUTE BRONCHITIS/PNEUMONITIS RESOLVING PLAN: 1. Continue nebs treatment, antibiotics, steroids. 2. The patient is advised to lose weight. Her BMI is 35. 3. Breathing exercises discussed, advised to join pulmonary rehab. TIME SPENT: More than 30 minutes. Plan and coordination of the patient's care discussed in the presence of nurse. DESIRE
--- NOTE | 2018-01-01 13:31 | PN ---
DATE OF SERVICE: 12/24/17 SUBJECTIVE: 82-year-old white female hospitalized with acute bronchitis/pneumonitis. The patient's condition is improved. She is up and about, feeling a lot better. REVIEW OF SYSTEMS: CONSTITUTIONAL: No night sweats. No fatigue, malaise, lethargy. No fever or chills. HEENT: Eyes: No visual changes. No eye pain. No eye discharge. ENT: No runny nose. No epistaxis. No sinus pain. No sore throat. No odynophagia. No congestion. RESPIRATORY: No cough, no congestion. No hemoptysis. No shortness of breath. CARDIOVASCULAR: No angina symptoms. No CHF symptoms. No atypical chest pain for CAD. No palpitations. No orthopnea. GASTROINTESTINAL: No abdominal pain. No nausea or vomiting. No diarrhea or constipation. No hematemesis. No hematochezia. GENITOURINARY: No urgency. No frequency. No dysuria. No hematuria. No obstructive symptoms. No discharge. No pain. No significant abnormal bleeding. MUSCULOSKELETAL: No musculoskeletal pain; no joint swelling. NEUROLOGICAL: No headache. No neck pain. No syncope. No seizures. No dizziness. PSYCHIATRIC: Not anxious. No depression. No suicidal thoughts. No homicidal thoughts. SKIN: No rash. No lesions. No wounds. ENDOCRINE: No unexplained weight loss. No weight gain. HEMATOLOGIC/LYMPHATIC: No anemia. No purpura. No petechiae. No prolonged or excessive bleeding. No palpable lymph nodes. PHYSICAL EXAMINATION: VITAL SIGNS: Temperature 98.5, pulse 70, respiratory rate 18, BP 150/80, pulse ox 95%. HEENT: Head normocephalic, atraumatic. Eyes: Extraocular muscles are intact. Pupils are equal, round and reactive to light and accommodation. Ears: No lesions. Nose appeared normal. Throat: No exudate or erythema. NECK: Supple. No JVD, no carotid bruit. No lymphadenopathy or thyromegaly. LUNGS: Decreased breath sounds but clear to auscultation. Percussion note normal. Chest symmetrical. HEART: S1, S2, no S3. No murmurs. No cyanosis or clubbing. No ascites. Pulses: Dorsalis pedis and posterior tibial pulses +1 to +2 both sides. ABDOMEN: Soft. Nontender. Bowel sounds active. No CVA tenderness. No mass felt. EXTREMITIES: No edema. Full range of motion of all extremities, equal. NEUROLOGIC: No focal deficit. Cranial nerves II through XII are grossly intact. No headache, no double vision or headache. SKIN: Not dry. Intact. Turgor - normal. LYMPHATIC: No palpable lymph nodes/no lymphedema. MUSCULOSKELETAL: Normal joints with no swelling. Muscle tone is normal. LABS: Hemoglobin 11.5, hematocrit 34, WBC 10,000. Normal Differential. Creatinine 1, BUN 44, potassium 3.8. ASSESSMENT: 1. ACUTE PNEUMONITIS/BRONCHITIS SEEMS TO BE RESOLVING. 2. HER CARDIOVASCULAR STATUS IS STABLE. 3. PATIENT IS OBESE, ADVISED TO LOSE WEIGHT. ADVISED TO WALK DAILY AT LEAST 1/ 2 MILE DAILY FOR 6 DAYS A WEEK. CONDITION: Stable. TIME SPENT: More than 30 minutes. Plan and coordination of the patient's care discussed in the presence of nurse. DESIRE
--- NOTE | 2018-01-03 13:13 | DS ---
DATE OF SERVICE: 12/25/17 FINAL DIAGNOSIS: 1. COPD exacerbation 2. Hypokalemia, resolved 3. Recent influenza 4. Hypertension 5. Coronary artery disease with stent application 6. Congestive heart failure 7. GERD 8. Hiatal hernia 9. Esophageal Dysmotility per UGI 10.Dyslipidemia 11.Hypothyroidism 12.Previous smoker 13.Bilateral total knee replacement 14.Hysterectomy 15.Echocardiogram 12/25/17 16.LVH with LVEF Last vitals: Temperature 98.9, pulse 73, respiratory rate 18, blood pressure 130/74 and pulse ox 96%. DISCHARGE INSTRUCTIONS: Discharge Home. An appointment is scheduled with Dr. Bond/Liana Solis APRN on January 01 at 1:15. An appointment is scheduled with Dr. Mayer (Ngoc Soni , MONUMENT ERECTOR) on February 13 at 2pm. MEDICATIONS AT DISCHARGE: Vasoted 5mg PO daily Zyloprim 100mg PO daily Aspirin Ec 81mg Po daily Celexa 20mg Po bedtime Klonopin 1mg PO bedtime [place]-3 Fish oil 1,000mg PO twice a day Synthroid 75mcg PO QDAC Zaroxolyn 2.5mg PO three times a week Singulair 10mg PO bedtime Nitrostat 0.4mg SL Q 5 minutes x3 doses PRN Nystop Powder 1 application Ditropan XL 5mg PO bedtime Protonix 40mg PO twice a day K-Dur 20neq PO daily Pravachol 80mg PO daily Advair 250-50 one puff IH twice a day Ultram 50mg PO three times a day PRN ALLERGIES: Hydrocodone Meperidine HCL Pregabalin NEW PRESCRIPTIONS: Reglan 5mg twice a day AC Carafate Suspension 1 gram AC and HS Keflex 500mg three times a day for 5 days. Prednisone 10mg daily for 5 days DIET INSTRUCTIONS: Regular as tolerated. Avoid eating after 7pm at night. Avoid eating after 7pm at night. Limit caffeine, chocolate. Sit upright for at least 30-60 minutes after eating. ACTIVITY: Resume as tolerated. SMOKING: N/A DISEASE SPECIFIC EDUCATION: Hiatal Hernia GERD Appointments Medications HOSPITAL COURSE: This is an 82 year old white female who has a history of COPD and oxygen use presented to the emergency room complaining of shortness of breath. She said that she had cough and congestion for the past two weeks and it became worse at home. She was unable perform her activities of daily living without being acutely short of breath. Chest x-ray revealed changes associated with COPD exacerbation. ABG's initial O2 saturation was 91. She was admitted and placed on Solu-Medrol 125mg IV Q 8 hours along with Rocephin 1gram IV daily. She was started on Xopenex NEB treatments Q 6 hours scheduled. Over the course of the next 48-72 hours her breathing improved. She was no longer wheezing. Today on day of discharge her pulse ox 96% on room air. She has been and about walking around. However on about day three she started developing epigastric discomfort. Upper GI revealed that she had some dysmotility of the esophagus which is causing esophageal waves and worsening acid reflux. She was already on Protonix 40mg twice a day. We then started her on Reglan daily as well as Carafate four times a day as most of her discomfort was at night. After starting the Carafate over the course of the next 48 hours she said her pain was significantly improved. She is going to home with a new prescriptions of Carafate and Reglan. We have arranged for her an appointment with the GI specialist, Ngoc Soni in January. Her vital signs have all remained stable. She has remained afebrile during this hospitalization; Temperature 98.7, heart rate 83, respiratory rate 20, blood pressure 150/80 and pulse ox 96% on room air. WBC 10.47, hgb 11.5, hct 34.9, sodium 142, potassium 3.8, BUN 44 and creatinine 1.03.She did remain on routine telemetry which showed normal sinus rhythm. All the rest of her of medications remained unchanged. She will go home on Keflex 500mg three times a day for the next 5 days along with Prednisone 10mg daily for the next 5 days. Again we will continue the Reglan and Carafate. We will followup with her in the office next week. TIME SPENT: More than 60 minutes. DESIRE
== END 2017-12-25 15:24 | disposition home or self-care (01) | DRG 191 ==
LOC: ED 19:37 → MEDSURG A 21:57
PROVIDERS: ADMIT Internal Medicine; ATTEND Internal Medicine
DX: J44.1 Chronic obstructive pulmonary disease with (acute) exacerbation (principal); N17.9 Acute kidney failure, unspecified; R06.02 Shortness of breath; K22.4 Dyskinesia of esophagus; R13.10 Dysphagia, unspecified; D64.9 Anemia, unspecified; J20.9 Acute bronchitis, unspecified; I10 Essential (primary) hypertension; R73.9 Hyperglycemia, unspecified; I25.10 Atherosclerotic heart disease of native coronary artery without angina pectoris; K21.9 Gastro-esophageal reflux disease without esophagitis; I50.9 Heart failure, unspecified; I12.9 Hypertensive chronic kidney disease with stage 1 through stage 4 chronic kidney disease, or unspecified chronic kidney disease; J44.0 Chronic obstructive pulmonary disease with (acute) lower respiratory infection; N18.3 Chronic kidney disease, stage 3 (moderate); E87.6 Hypokalemia; E86.0 Dehydration; I51.7 Cardiomegaly; K44.9 Diaphragmatic hernia without obstruction or gangrene; E03.9 Hypothyroidism, unspecified; E66.9 Obesity, unspecified; R11.0 Nausea; M47.892 Other spondylosis, cervical region; Z95.5 Presence of coronary angioplasty implant and graft; Z79.899 Other long term (current) drug therapy; Z68.35 Body mass index [BMI] 35.0-35.9, adult; Z87.891 Personal history of nicotine dependence; Z86.19 Personal history of other infectious and parasitic diseases
CPT/HCPCS: 36415; 80048; 80053; 82550; 82803; 83605; 84145; 84484; 85007; 85025; 87502; 87651; 93005; 93010; 94640; 96360; 96375; 97802; 99223; 99231; 99232; 99239; 99285

== ENCOUNTER 2018-02-27 09:50 | Day surgery (SDC) | payer OTHER ==
[2018-02-27] MEDS ORDERED: LIDOCAINE 1% 20 ML MDV ID STA (10:19)
[2018-02-27] MEDS ORDERED: DIPRIVAN 20 ML VIAL IVP ONE (11:15)
[2018-02-27] MEDS ORDERED: VERSED ONE (11:15)
[2018-02-27] MEDS ORDERED: LIDOCAINE HCL 2% LUER-JET ONE (11:15)
[2018-02-27 13:34] VITALS: BP 132/67; TEMP 98.6
--- NOTE | 2018-02-28 11:34 | OP ---
INDICATIONS FOR PROCEDURE: 82 year old female presents complaining of intermittent dysphagia. She has improved now. She is scheduled endoscopy investigation. MEDICATIONS: SEE ANESTHESIA NOTES. PROCEDURE: ENDOSCOPY. ESOPHAGEAL BIOPSY, BAHAMIAN DILATATION. REPORT: The risks, benefits, alternatives and limitations were discussed in detail with the patient. Informed consent was obtained. After adequate sedation was achieved, the video endoscope was introduced in the posterior pharynx and esophagus under direct vision and easily advanced down to the second portion of the duodenum. I then slowly withdrew. The duodenal mucosa appeared unremarkable as did the duodenal bulb. The antrum body was slight erythematous but relatively unremarkably. The scope was retroflexed to look at the cardia and fundus which was unremarkable. The scope was anteflexed and withdrawn back through the esophagus. At the GE junction there was a Schatzki ring. I did biopsy the GE junction for histological review. The esophagus was otherwise unremarkable. I advanced the scope back down the gastric lumen and placed the guidewire and withdrew the scope. Over the guidewire I easily advanced 54French [place] Dilator. The patient tolerated the procedure well with stable vital signs and pulse oximetry throughout. IMPRESSION: 1. Distal esophageal Schatzki's rings successfully dilated as above RECOMMENDATIONS: 1. Strict reflux precautions 2. OK for her to stop Reglan at this time 3. I also suggested that she can use her Carafate as needed. 4. Advised her to make sure she cuts and chews her food well, eats in the up right position, takes her time eating and drink plenty of fluids with her medications. 5. We will see her back in the office as needed. CC: Dr. Varun PHIPPS
== END 2018-02-27 12:45 | disposition home or self-care (01) ==
LOC: SURG 09:50
PROVIDERS: ATTEND Internal Medicine Gastroenterology
DX: K22.2 Esophageal obstruction (principal); K21.0 Gastro-esophageal reflux disease with esophagitis; R13.10 Dysphagia, unspecified

== ENCOUNTER 2020-09-21 15:57 | Inpatient (IN) ==
[2020-09-21 16:46] LABS: BASOPHILS % (AUTO) 0.4 % (0.0-3.0); EOSINOPHILS # (AUTO) 0.1 K/ul (0.0-0.7); EOSINOPHILS % (AUTO) 2.1 % (0.0-7.0); HEMATOCRIT 31.6 % (37.0-47.0); HEMOGLOBIN 10.2 g/dl (12.0-16.0); IMMATURE GRANULOCYTE % (AUTO) 0.5 % (0.0-5.0); LYMPHOCYTES # (AUTO) 1.2 K/uL (0.60-3.4); LYMPHOCYTES % (AUTO) 20.9 (10.0-50.0); MEAN CORPUSCULAR HEMOGLOBIN 30.5 pg (27.0-31.0); MEAN CORPUSCULAR HGB CONC 32.3 (31.8-35.4); MEAN CORPUSCULAR VOLUME 94.6 fl (81.0-99.0); MONOCYTES # (AUTO) 0.5 K/uL (0.4-2.0); MONOCYTES % (AUTO) 9.4 (0-10); NEUTROPHILS # (AUTO) 3.8 K/ul (2.0-6.9); NEUTROPHILS % (AUTO) 66.7 % (42.2-75.2); PLATELET COUNT 198 10^3/uL (140-440); RDW COEFFICIENT OF VARIATION 14.6 % (11.6-14.8); RED BLOOD COUNT 3.34 10^6/ul (4.20-5.40); WHITE BLOOD COUNT 5.64 K/ul (4.6-10.2)
[2020-09-21 16:56] LABS: ALANINE AMINOTRANSFERASE 10.7 U/L (0-35); ALBUMIN 3.62 g/dL (3.5-5.0); ALKALINE PHOSPHATASE 63.1 U/L (53-141); ASPARTATE AMINO TRANSFERASE 24.8 U/L (14-36); BILIRUBIN,TOTAL 0.67 mg/dL (0.2-1.3); BLOOD UREA NITROGEN 27.5 mg/dL (7-17); CARBON DIOXIDE 35.2 mmol/L (22-30.0); CHLORIDE 97.4 mmol/L (98-107); CREATININE 1.97 mg/dL (0.60-1.30); GLUCOSE 115.8 mg/dL (74-106); POTASSIUM 3.73 mmol/L (3.5-5.1); SODIUM 137.2 mmol/L (134.5-145); TOTAL PROTEIN 6.92 g/dL (6.3-8.2)
[2020-09-21 17:04] LABS: ABG BASE EXCESS 8.2 (-2.0-2.0); ABG PH 7.46 (7.35-7.45); ABG TCO2 33.4 (22.0-28.0)
[2020-09-21 17:08] LABS: TROPONIN I < 0.012 ng/ml (0.0000-0.120)
--- NOTE | 2020-09-21 17:29 | DI ---
EXAMINATION: AP portable chest radiograph. HISTORY: Dyspnea FINDINGS: The lungs remain clear since 12/18/2017. The aorta is atherosclerotic. The heart size i s prominent. The bones are intact. No pneumothorax or pleural effusions are detected. IMPRESSION: No acute cardiopulmonary disease. ASCVD and prominent heart size.
[2020-09-21 17:45] LABS: BILIRUBIN,URINE Negative (NEGATIVE); CLARITY,URINE Cloudy (CLEAR); COLOR,URINE Yellow (YELLOW); GLUCOSE, URINE (UA) Negative (NEGATIVE); KETONES,URINE Negative (NEGATIVE); LEUKOCYTE ESTERASE ,URINE 1+ (NEGATIVE); NITRITE,URINE Negative (NEGATIVE); PH,URINE 6.5 (5-9); PROTEIN,URINE Negative (NEGATIVE); URINE, BLOOD 1+ (NEGATIVE); UROBILINOGEN,URINE 0.2 (0.2)
[2020-09-21 17:48] LABS: AMORPHOUS SEDIMENT,UR 2+ (NOT PRESENT); BACTERIA,URINE 3+ (NOT PRESENT)
--- NOTE | 2020-09-21 18:02 | ED.PDOC ---
General ED Provider: Dr. ZOE MARTINEZ Chief Complaint: Extremity Swelling/Pain Stated Complaint: Has swelling bilat legs and ankles-chronic Denies SOB today. Seem sleepy every day but awakens without difficulty. Currently awake and talkative. Mode of Arrival: Stretcher Information Source: Patient Exam Limitations: No limitations Primary Care Provider: APOLINAR BARNES Nursing and Triage Documentation Reviewed and Agree: Yes Does patient meet sepsis criteria?: No System Inflammatory Response Syndrome: Not Applicable Sepsis Protocol: For patient's 13 years and over: Temp is 96.8 and below OR 101 and greater Pulse >90 BPM Resp >20/minute Acutely Altered Mental Status Are patient's symptoms suggestive of a new infection, such as: -Pneumonia -Skin, Soft Tissue -Endocarditis -UTI -Bone, Joint Infection -Implantable Device -Acute Abdominal Infection -Wound Infection -Meningitis -Blood Stream Catheter Infection -Unknown Respiratory Complaint Exam Respiratory Complaint/Exam Onset/Duration: Chronic dsyspnea Symptoms Are: Still present Timing: Intermittent Initial Severity: Moderate Current Severity: Mild Location: Chest Character: Reports Non-productive cough Aggravating: Reports Exertion Alleviating: Reports Upright position Associated Signs and Symptoms: Reports Dyspnea; Denies Rapid breathing, Fever, Chills, Chest pain, Pleuritic chest pain, Wheezing, Hemoptysis, Dizziness, Calf pain, Calf swelling, Edema, URI, Nasal congestion, Hoarseness, Sinus discomfort, Vomiting, Sore throat, Weight loss, Decreased oral intake, Increased thirst, Increased appetite and Increased urination Related History: Reports Similar episode History of Healthcare-Acquired Pneumonia: No Pulmonary Embolism Risk Factors: None Cardiac Risk Factors: Reports None Pseudomonas Risk Factors: Reports None Tuberculosis Risk Factors: Reports None Status Asthmaticus Risk Factors: Reports None Home Oxygen Use: No Recent Stress Test: No Recent Echo/LV Function: No Current Antibiotic Use: No Current Asthma Medication Use: No Respiratory Distress: None Inadequate Respiratory Effort: No Dysphagia Present: No Stridor Present: No JVD Present: No Accessory Muscle Use: No Retractions: Not Present Diminished Breath Sounds: No Sinus Tenderness: None Grunting Respirations: No Kussmaul Respirations: No Differential Diagnoses: Airway Obstruction Review of Systems Review Of Systems Constitutional: Reports No symptoms Eyes: Reports No symptoms Ears, Nose, Mouth, Throat: Reports No symptoms Respiratory: Reports No symptoms Cardiac: Reports No symptoms GI: Reports No symptoms : Reports No symptoms Musculoskeletal: Reports No symptoms Skin: Reports No symptoms Neurological: Reports No symptoms Endocrine: Reports No symptoms Hematologic/Lymphatic: Reports No symptoms All Other Systems: Reviewed and Negative [facility] Social History Smoking and tobacco status: Former smoker History of recent travel: No Female Reproductive History Menstrual Hx Hysterectomy: Yes Hx Tubal Ligation: No Physical Exam Physical Exam Appearance: Reports Well-appearing, No pain distress and Well-nourished Ill-appearing: None Pain Distress: None Eyes: Reports JODRAN, EOMI, Conjunctiva clear and Conjunctiva pale ENT: Reports Ears normal, Nose normal and Oropharynx normal Respiratory: Reports Airway patent, Breath sounds clear, Breath sounds diminished (Basilar regions) and Respirations nonlabored Cardiovascular: Reports RRR, Pulses normal, No rub and No murmur GI/: Reports Soft, Nontender, No masses, Bowel sounds normal and No Organomegaly Musculoskeletal: Reports Normal strength, ROM intact, No edema and No calf tenderness Skin: Reports Warm, Dry and Normal color Neurological: Reports Sensation intact, Motor intact, Reflexes intact, Cranial nerves intact, Alert and Oriented Psychiatric: Reports Affect appropriate and Mood appropriate Interpretation Radiology Interpretation Radiology Interpretation By: Radiologist Exam Interpreted: CXR Xray Comments: No acute cardiopulmonary disease. ASCVD and prominent heart size. EKG Interpretation Time of EKG #1: 16:23 Rhythm: Other (Junctional) Ectopy: None Interpretation: Can not R/O ant infarct age indeterminite Course Course Hematology/Chemistry: 09/21/20 16:38 09/21/20 16:38 Orders, Labs, Meds: Lab Review 09/21/20 09/21/20 09/21/20 16:05 16:38 16:38 WBC 5.64 RBC 3.34 L Hgb 10.2 L Hct 31.6 L MCV 94.6 MCH 30.5 MCHC 32.3 RDW Coeff of Michael 14.6 Plt Count 198 Immature Gran % (Auto) 0.5 Neut % (Auto) 66.7 Lymph % (Auto) 20.9 [place] % (Auto) 9.4 Eos % (Auto) 2.1 Baso % (Auto) 0.4 Neut # (Auto) 3.8 Lymph # (Auto) 1.2 [place] # (Auto) 0.5 Eos # (Auto) 0.1 Baso # (Auto) 0.0 Immature Gran # (Auto) 0.0 Puncture Site Lrad O2 Saturation 96.0 ABG pH 7.46 H ABG pCO2 45.0 ABG pO2 75.0 L ABG HCO3 32.0 H ABG Total CO2 33.4 H ABG Base Excess 8.2 H Bobby Test + FiO2 % 21.0 Sodium 137.2 Potassium 3.73 Chloride 97.4 L Carbon Dioxide 35.2 H Anion Gap 8.33 BUN 27.5 H Creatinine 1.97 H Estimated GFR (MDRD) 24.00 BUN/Creatinine Ratio 13.95 Glucose 115.8 H Calcium 9.30 Total Bilirubin 0.67 AST 24.8 ALT 10.7 Alkaline Phosphatase 63.1 Troponin I < 0.012 Total Protein 6.92 Albumin 3.62 Globulin 3.30 Albumin/Globulin Ratio 1.09 Urine Color Urine Clarity Urine pH Ur Specific [place] Urine Protein Urine Glucose (UA) Urine Ketones Urine Blood Urine Nitrite Urine Bilirubin Urine Urobilinogen Ur Leukocyte Esterase Urine Microscopic RBC Urine Microscopic WBC Ur Squamous Epith Cells Amorphous Sediment Urine Bacteria 09/21/20 17:10 WBC RBC Hgb Hct MCV MCH MCHC RDW Coeff of Michael Plt Count Immature Gran % (Auto) Neut % (Auto) Lymph % (Auto) [place] % (Auto) Eos % (Auto) Baso % (Auto) Neut # (Auto) Lymph # (Auto) [place] # (Auto) Eos # (Auto) Baso # (Auto) Immature Gran # (Auto) Puncture Site O2 Saturation ABG pH ABG pCO2 ABG pO2 ABG HCO3 ABG Total CO2 ABG Base Excess Bobby Test FiO2 % Sodium Potassium Chloride Carbon Dioxide Anion Gap BUN Creatinine Estimated GFR (MDRD) BUN/Creatinine Ratio Glucose Calcium Total Bilirubin AST ALT Alkaline Phosphatase Troponin I Total Protein Albumin Globulin Albumin/Globulin Ratio Urine Color Yellow Urine Clarity Cloudy Urine pH 6.5 Ur Specific [place] 1.020 Urine Protein Negative Urine Glucose (UA) Negative Urine Ketones Negative Urine Blood 1+ H Urine Nitrite Negative Urine Bilirubin Negative Urine Urobilinogen 0.2 Ur Leukocyte Esterase 1+ H Urine Microscopic RBC 2-5 Urine Microscopic WBC 5-10 Ur Squamous Epith Cells 5-10 Amorphous Sediment 2+ Urine Bacteria 3+ Orders Category Date Time Status ABG DRAW REQUEST Stat CARDIO 09/21/20 16:00 Completed EKG-(ED ONLY) Stat CARDIO 11/30/20 16:22 Completed ABG Stat LAB 11/30/20 16:05 Completed CBC W/ AUTO DIFF Stat LAB 09/21/20 16:38 Completed CMP [COMPREHENSIVE METABOLIC PANEL] Stat LAB 09/21/20 16:38 Completed TROPONIN I Stat LAB 09/21/20 16:38 Completed UA [URINALYSIS C & S IF INDICATED] Stat LAB 09/21/20 17:10 Completed URINE CULTURE Stat LAB 09/21/20 17:10 Received CHEST, 1V AP ONLY Stat RADS 09/21/20 16:22 Completed Vital Signs: Temp Pulse Resp BP Pulse Ox 09/21/20 15:59 96.8 F L 58 L 24 100/52 L 100 Discharge Plan Discharge Patient Disposition: HOME SELF-CARE Discharge Problem: Acute UTI, Leg edema Instructions: Dysuria (ED) Prescriptions: No Action clonazepam [Klonopin] 0.5 MG tablet 0.5 mg PO BID RF: 0 citalopram 20 MG tablet 20 mg PO DAILY RF: 0 levothyroxine [Synthroid] 50 MCG tablet 75 mcg PO QDAC RF: 0 montelukast [Singulair] 10 MG tablet 10 mg PO BEDTIME RF: 0 tramadol 50 MG tablet 50 mg PO TID PRN (Reason: Mild Pain) RF: 0 fluticasone propion-salmeterol [Advair Diskus] 1 PUFF blister with device 1 puff inhalation BID RF: 0 pravastatin [Pravachol] 80 MG tablet 80 mg PO DAILY RF: 0 nitroglycerin [Nitrostat] 0.4 MG tablet, sublingual 0.4 mg sublingual Q5MIN X 3 DOSES PRN (Reason: Analgesia) RF: 0 nystatin [Nystop] 1 APPLIC powder 1 applic topical BID RF: 0 metoprolol succinate [Toprol XL] 50 MG tablet extended release 24 hr 50 mg PO DAILY RF: 0 omega-3 fatty acids-fish oil [Fish Oil] 1 EACH capsule 1 ea PO BID RF: 0 cyanocobalamin (vitamin B-12) [Vitamin B-12] 1,000 MCG tablet 1,000 mcg PO DAILY RF: 0 ferrous sulfate [iron] 325 MG tablet 325 mg PO DAILY RF: 0 omega-3 fatty acids-fish oil [Fish Oil] 1 EACH capsule 1 ea PO DAILY RF: 0 metoclopramide HCl [Reglan] 5 MG tablet 5 mg PO DAILYWM RF: 0 furosemide 40 mg tablet 40 mg PO DAILY RF: 0 potassium chloride 10 mEq tablet extended release 10 meq PO DAILY RF: 0 metolazone 2.5 MG tablet 2.5 mg PO 3 TIMES PER WEEK RF: 0 allopurinol 100 MG tablet 100 mg PO DAILY RF: 0 pantoprazole 40 MG tablet,delayed release (DR/EC) 40 mg PO BID RF: 0 enalapril maleate 5 MG tablet 5 mg PO DAILY RF: 0 oxybutynin chloride 5 MG tablet extended release 24hr 5 mg PO BEDTIME RF: 0 sucralfate [Carafate] 1 GM/10 ML suspension 1 g PO ACHS Qty: 1200 RF: 0 Activity Restrictions/Additional Instructions: Home Continue maintenance meds Take antibiotic for bladder infection ED Provider: ZOE MARTINEZ Physician Progress Note: []
[2020-09-21] MEDS ORDERED: KEFLEX PO STA (18:16)
[2020-09-21] MEDS ORDERED: TYLENOL PO PRN (18:39)
[2020-09-21] MEDS ORDERED: SODIUM CHLORIDE 0.9%-KCL 20 MEQ 1,000 ML IV SCH (19:00)
[2020-09-21] MEDS ORDERED: SODIUM CHLORIDE 1,000 ML IV SCH (19:00)
[2020-09-21 20:49] VITALS: BMI 34.4
[2020-09-21] MEDS ORDERED: LASIX IVP STA (22:18)
[2020-09-21] MEDS ORDERED: ULTRAM PO PRN (22:25)
[2020-09-21] MEDS ORDERED: ROCEPHIN 1 GM/50 ML D5W 1 GM/50 ML BAG IV SCH (22:30)
[2020-09-21] MEDS ORDERED: ZAROXOLYN PO SCH (22:30)
[2020-09-22] MEDS: KLONOPIN PO SCH ×3 (03:55→20:08)
[2020-09-22 05:46] LABS: BASOPHILS % (AUTO) 0.6 % (0.0-3.0); EOSINOPHILS # (AUTO) 0.2 K/ul (0.0-0.7); EOSINOPHILS % (AUTO) 2.9 % (0.0-7.0); HEMATOCRIT 31.5 % (37.0-47.0); HEMOGLOBIN 10.1 g/dl (12.0-16.0); IMMATURE GRANULOCYTE % (AUTO) 0.2 % (0.0-5.0); LYMPHOCYTES # (AUTO) 1.5 K/uL (0.60-3.4); MEAN CORPUSCULAR HEMOGLOBIN 30.3 pg (27.0-31.0); MEAN CORPUSCULAR HGB CONC 32.1 (31.8-35.4); MEAN CORPUSCULAR VOLUME 94.6 fl (81.0-99.0); MONOCYTES # (AUTO) 0.6 K/uL (0.4-2.0); NEUTROPHILS % (AUTO) 57.3 % (42.2-75.2); PLATELET COUNT 211 10^3/uL (140-440); RDW COEFFICIENT OF VARIATION 14.6 % (11.6-14.8); RED BLOOD COUNT 3.33 10^6/ul (4.20-5.40); WHITE BLOOD COUNT 5.18 K/ul (4.6-10.2)
[2020-09-22 06:00] LABS: ALBUMIN 3.71 g/dL (3.5-5.0); ALKALINE PHOSPHATASE 68.4 U/L (53-141); ASPARTATE AMINO TRANSFERASE 24.1 U/L (14-36); BILIRUBIN,TOTAL 0.56 mg/dL (0.2-1.3); BLOOD UREA NITROGEN 32.5 mg/dL (7-17); CALCIUM 9.33 mg/dL (8.4-10.2); CARBON DIOXIDE 36.4 mmol/L (22-30.0); CHLORIDE 93.4 mmol/L (98-107); CREATININE 2.14 mg/dL (0.60-1.30); GLUCOSE 115.2 mg/dL (74-106); POTASSIUM 3.73 mmol/L (3.5-5.1); SODIUM 135.2 mmol/L (134.5-145); TOTAL PROTEIN 7.16 g/dL (6.3-8.2)
[2020-09-22] MEDS ORDERED: SYNTHROID PO SCH (06:30)
[2020-09-22] MEDS: CARAFATE PO SCH ×4 (06:31→20:09)
--- NOTE | 2020-09-22 08:55 | PCM.PROG ---
Attending Provider: ATTENDING PROVIDER: Dr. APOLINAR BARNES This patient is seen with Liana Solis, Nurse Practitioner. DATE OF SERVICE: 09/22/20 SUBJECTIVE: This 85 year old /WHITE F was hospitalized 09/21/20. The patient is resting comfortably. Weakness has slightly improved. Still somewhat hypotensive. Kidney function is worse. REVIEW OF SYSTEMS: CONSTITUTIONAL: No night sweats. No fatigue, malaise, lethargy. No fever or chills. Weakness. HEENT: Eyes: No visual changes. No eye pain. No eye discharge. ENT: No runny nose. No epistaxis. No sinus pain. No odynophagia. No congestion. RESPIRATORY: No cough, no congestion. No hemoptysis. No shortness of breath. CARDIOVASCULAR: No angina symptoms. No CHF symptoms. No atypical chest pain for CAD. No palpitations. No orthopnea.. GASTROINTESTINAL: No abdominal pain. No nausea or vomiting. No diarrhea or constipation. No hematemesis. No hematochezia. GENITOURINARY: No urgency. No frequency. No dysuria. No hematuria. No obstructive symptoms. No discharge. No pain. No significant abnormal bleeding. MUSCULOSKELETAL: No musculoskeletal pain; no joint swelling. Leg edema. NEUROLOGICAL: Awake, alert, oriented to time, place and person. No headache. No neck pain. No syncope. No seizures. No dizziness. PSYCHIATRIC: Not anxious. No depression. No suicidal thoughts. No homicidal thoughts. SKIN: No rash. No lesions. No wounds. ENDOCRINE: No unexplained weight loss. No weight gain. HEMATOLOGIC/LYMPHATIC: No anemia. No purpura. No petechiae. No prolonged or excessive bleeding. No palpable lymph nodes. PHYSICAL EXAMINATION: GENERAL: The patient is awake, alert and oriented, lying in bed in no distress. VITAL SIGNS: Temperature 97.7 F, Pulse 56, Respiratory Rate 18, BP 101/56, Pul se Ox 100% HEENT: Head normocephalic, atraumatic. Eyes: Extraocular muscles are intact. Pupils are equal, round and reactive to light and accommodation. Ears: No lesions. Nose appeared normal. Throat: No exudate or erythema. NECK: Supple. No JVD, no carotid bruit. No lymphadenopathy or thyromegaly. LUNGS: Clear to auscultation. Percussion note normal. Chest symmetrical. HEART: S1, S2, no S3. No murmurs. No cyanosis or clubbing. No ascites. Pulses: Dorsalis pedis and posterior tibial pulses +1 to +2 both sides. ABDOMEN: Soft. Non-tender. Bowel sounds active. No CVA tenderness. No mass felt. EXTREMITIES:+1 bilateral leg edema. Full range of motion of all extremities, equal. NEUROLOGIC: No focal deficit. Cranial nerves II through XII are grossly intact. No headache, no double vision or headache. SKIN: Not dry. Intact. Turgor-normal. LYMPHATIC: No palpable lymph nodes/no lymphedema. MUSCULOSKELETAL: Normal joints with no swelling. Muscle tone is normal. LAB REVIEW: 09/22/20 04:38 09/22/20 04:38 09/22/20 04:38: Sodium 135.2, Potassium 3.73, Chloride 93.4 L, Carbon Dioxide 36.4 H, Anion Gap 9.13, BUN 32.5 H, Creatinine 2.14 H, Estimated GFR (MDRD) 2 2.00, BUN/Creatinine Ratio 15.18, Glucose 115.2 H, Calcium 9.33, Total Bilirubin 0.56, AST 24.1, ALT 11.0, Alkaline Phosphatase 68.4, Total Protein 7.16, Albumin 3.71, Globulin 3.45, Albumin/Globulin Ratio 1.07 09/22/20 04:38: WBC 5.18, RBC 3.33 L, Hgb 10.1 L, Hct 31.5 L, MCV 94.6, MCH 30.3, MCHC 32.1, RDW Coeff of Michael 14.6, Plt Count 211, Immature Gran % (Auto) 0.2, Neut % (Auto) 57.3, Lymph % (Auto) 28.0, [place] % (Auto) 11.0 H, Eos % (Auto) 2.9, Baso % (Auto) 0.6, Neut # (Auto) 3.0, Lymph # (Auto) 1.5, [place] # (Auto) 0.6, Eos # (Auto) 0.2, Baso # (Auto) 0.0, Immature Gran # (Auto) 0.0 09/21/20 17:10: Urine Color Yellow, Urine Clarity Cloudy, Urine pH 6.5, Ur Specific [place] 1.020, Urine Protein Negative, Urine Glucose (UA) Negative, Urine Ketones Negative, Urine Blood 1+ H, Urine Nitrite Negative, Urine Bilirubin Negative, Urine Urobilinogen 0.2, Ur Leukocyte Esterase 1+ H, Urine Microscopic RBC 2-5, Urine Microscopic WBC 5-10, Ur Squamous Epith Cells 5-10, Amorphous Sediment 2+, Urine Bacteria 3+ 09/21/20 16:38: Sodium 137.2, Potassium 3.73, Chloride 97.4 L, Carbon Dioxide 35.2 H, Anion Gap 8.33, BUN 27.5 H, Creatinine 1.97 H, Estimated GFR (MDRD) 24.00, BUN/Creatinine Ratio 13.95, Glucose 115.8 H, Calcium 9.30, Total Bilirubin 0.67, AST 24.8, ALT 10.7, Alkaline Phosphatase 63.1, Troponin I < 0.012, Total Protein 6.92, Albumin 3.62, Globulin 3.30, Albumin/Globulin Ratio 1.09 09/21/20 16:38: WBC 5.64, RBC 3.34 L, Hgb 10.2 L, Hct 31.6 L, MCV 94.6, MCH 30.5, MCHC 32.3, RDW Coeff of Michael 14.6, Plt Count 198, Immature Gran % (Auto) 0.5, Neut % (Auto) 66.7, Lymph % (Auto) 20.9, [place] % (Auto) 9.4, Eos % (Auto) 2.1, Baso % (Auto) 0.4, Neut # (Auto) 3.8, Lymph # (Auto) 1.2, [place] # (Auto) 0.5, Eos # (Auto) 0.1, Baso # (Auto) 0.0, Immature Gran # (Auto) 0.0 09/21/20 16:05: Puncture Site Lrad, O2 Saturation 96.0, ABG pH 7.46 H, ABG pCO2 45.0, ABG pO2 75.0 L, ABG HCO3 32.0 H, ABG Total CO2 33.4 H, ABG Base Excess 8.2 H, Bobby Test +, FiO2 % 21.0 ASSESSMENT: Please see below. 1. UTI culture pending 2. Chronic leg edema 3. Acute renal failure 4. Chronic kidney disease 5. Chronic anemia 6. COPD 7. Noncompliance with medications, lifestyle, diet and followup. PLAN: 1. Normal saline 50cc 2. Echo 3. Hold Lasix and resume tomorrow 4. Continue IV antibiotics. Plan and coordination of the patient's care discussed in the presence of Metal Fabricating Inspector and nurse. SCRIBED BY: Gail [facility] scribed while in presence of service performed by Dr. Barnes/Liana Solis APRN on 09/22/20 ([id number])
[2020-09-22] MEDS: SODIUM CHLORIDE 1,000 ML IV SCH (08:58)
[2020-09-22] MEDS: VASOTEC PO SCH (08:58)
[2020-09-22] MEDS: ZYLOPRIM PO SCH (08:59)
[2020-09-22] MEDS: TOPROL XL PO SCH (08:59)
[2020-09-22] MEDS: DITROPAN PO SCH (08:59)
[2020-09-22] MEDS: PRAVACHOL PO SCH (08:59)
[2020-09-22] MEDS: PROTONIX PO SCH ×2 (08:59→17:36)
[2020-09-22] MEDS: CELEXA PO SCH (08:59)
[2020-09-22] MEDS: MICRO-K CAP PO SCH (08:59)
[2020-09-22] MEDS ORDERED: LASIX TAB PO SCH (09:00)
[2020-09-22] MEDS: SINGULAIR PO SCH (20:09)
[2020-09-22] MEDS: ROCEPHIN 1 GM/50 ML D5W 1 GM/50 ML BAG IV SCH (20:09)
[2020-09-23 05:27] LABS: BASOPHILS % (AUTO) 0.7 % (0.0-3.0); EOSINOPHILS # (AUTO) 0.2 K/ul (0.0-0.7); EOSINOPHILS % (AUTO) 3.3 % (0.0-7.0); HEMATOCRIT 29.5 % (37.0-47.0); HEMOGLOBIN 9.6 g/dl (12.0-16.0); IMMATURE GRANULOCYTE % (AUTO) 0.5 % (0.0-5.0); LYMPHOCYTES # (AUTO) 1.6 K/uL (0.60-3.4); LYMPHOCYTES % (AUTO) 27.7 (10.0-50.0); MEAN CORPUSCULAR HEMOGLOBIN 30.6 pg (27.0-31.0); MEAN CORPUSCULAR HGB CONC 32.5 (31.8-35.4); MEAN CORPUSCULAR VOLUME 93.9 fl (81.0-99.0); MONOCYTES # (AUTO) 0.7 K/uL (0.4-2.0); MONOCYTES % (AUTO) 11.3 (0-10); NEUTROPHILS # (AUTO) 3.3 K/ul (2.0-6.9); NEUTROPHILS % (AUTO) 56.5 % (42.2-75.2); PLATELET COUNT 196 10^3/uL (140-440); RDW COEFFICIENT OF VARIATION 14.4 % (11.6-14.8); RED BLOOD COUNT 3.14 10^6/ul (4.20-5.40); WHITE BLOOD COUNT 5.77 K/ul (4.6-10.2)
[2020-09-23] MEDS: SODIUM CHLORIDE 1,000 ML IV SCH (05:45)
[2020-09-23] MEDS: SYNTHROID PO SCH (05:45)
[2020-09-23] MEDS: CARAFATE PO SCH ×4 (05:45→20:38)
[2020-09-23] MEDS: PROTONIX PO SCH ×2 (05:45→17:55)
[2020-09-23 05:47] LABS: ALANINE AMINOTRANSFERASE 10.3 U/L (0-35); ALBUMIN 3.31 g/dL (3.5-5.0); ALKALINE PHOSPHATASE 68.9 U/L (53-141); ASPARTATE AMINO TRANSFERASE 18.6 U/L (14-36); BILIRUBIN,TOTAL 0.34 mg/dL (0.2-1.3); BLOOD UREA NITROGEN 37.2 mg/dL (7-17); CALCIUM 8.77 mg/dL (8.4-10.2); CARBON DIOXIDE 30.7 mmol/L (22-30.0); CHLORIDE 100.1 mmol/L (98-107); CREATININE 1.81 mg/dL (0.60-1.30); GLUCOSE 98.5 mg/dL (74-106); POTASSIUM 3.77 mmol/L (3.5-5.1); SODIUM 137.8 mmol/L (134.5-145); TOTAL PROTEIN 6.39 g/dL (6.3-8.2)
[2020-09-23] MEDS: LASIX TAB PO SCH (06:22)
[2020-09-23] MEDS: MICRO-K CAP PO SCH (08:19)
[2020-09-23] MEDS: TOPROL XL PO SCH (08:19)
[2020-09-23] MEDS: PRAVACHOL PO SCH (08:19)
[2020-09-23] MEDS: DITROPAN PO SCH (08:19)
[2020-09-23] MEDS: VASOTEC PO SCH (08:19)
[2020-09-23] MEDS: KLONOPIN PO SCH ×2 (08:19→20:38)
[2020-09-23] MEDS: CELEXA PO SCH (08:20)
[2020-09-23] MEDS: ZYLOPRIM PO SCH (08:20)
--- NOTE | 2020-09-23 08:53 | HP ---
DATE OF SERVICE: 09/21/2020 REASON FOR HOSPITALIZATION/HISTORY OF PRESENT ILLNESS: 85 year old white female who presented to the emergency room. She has been living at home. She had lower extremity pain and swelling. She does have a history of chronic edema. She is more sleepy today, lethargic. She does have COPD with former smoker. She denies any worsening shortness of breath. PAST MEDICAL HISTORY: COPD History of hypokalemia Hypertension Coronary artery disease with stent CHF GERD Hiatal hernia History of esophageal dysmotility per upper GI Dyslipidemia Hypothyroidism Former smoker Chronic leg edema Hypertension Noncompliance with diet, lifestyle, followup and medication. Last echo in 2018 PAST SURGICAL HISTORY: Bilateral total knee replacement Hysterectomy REVIEW OF SYSTEMS: CONSTITUTIONAL: No night sweats. No fatigue, malaise, lethargy. No fever or chills. Weakness. HEENT: Eyes: No visual changes. No eye pain. No eye discharge. ENT: No runny nose. No epistaxis. No sinus pain. No sore throat. No odynophagia. No ear pain. No congestion. RESPIRATORY: No cough, no congestion. No hemoptysis. No shortness of breath. CARDIOVASCULAR: No angina symptoms. No CHF symptoms. No atypical chest pain for CAD. No palpitations. No PND. No orthopnea. GASTROINTESTINAL: No abdominal pain. No nausea or vomiting. No diarrhea or constipation. No hematemesis. No hematochezia. GENITOURINARY: No urgency. No frequency. No dysuria. No hematuria. No obstructive symptoms. No discharge. No pain. No significant abnormal bleeding. MUSCULOSKELETAL: No musculoskeletal pain. No joint swelling. No arthritis. Leg edema. NEUROLOGICAL: No headache. No neck pain. No syncope. No seizures. No dizziness. PSYCHIATRIC: Not anxious. No depression. No suicidal thoughts. No homicidal thoughts. SKIN: No rash. No lesions. No wounds. ENDOCRINE: No unexplained weight loss. No weight gain. HEMATOLOGIC/LYMPHATIC: No anemia. No purpura. No petechiae. No prolonged or excessive bleeding. No palpable lymph nodes. MEDICATIONS: Citalopram 20mg PO daily Klonopin 0.5mg PO BID Synthroid 75mcg PO QDAC Singulair 10mg PO BEDTIME Tramadol 50mg PO TID PRN Pravachol 80mg PO daily Allopurinol 100mg PO daily Pantoprazole 40mg PO BID Toprol 50mg PO daily Enalapril maleate 5mg PO daily Carafate 100mg PO ACHS Furosemide 40mg PO daily Oxybutynin 5mg PO daily Metolazone 2.5mg PO MOWEFR Potassium Chloride 10 meq PO daily ALLERGIES: Hydrocodone Meperidine Pregabalin PHYSICAL EXAMINATION: VITAL SIGNS: Temperature 96.8, heart rate 58, respiratory rate 24. blood pressure 100/52 and pulse ox 100. HEENT: Head normocephalic, atraumatic. Eyes: Extraocular muscles are intact. Pupils are equal, round and reactive to light and accommodation. Ears: No lesions. Nose appeared normal. Throat: No exudate or erythema. NECK: Supple. No JVD, no carotid bruit. No lymphadenopathy or thyromegaly. LUNGS: Diminished breath sounds bilaterally. Clear to auscultation. Percussion note normal. Chest symmetrical. HEART: S1, S2, no S3. No murmur. No cyanosis or clubbing. No ascites. Pulses: Dorsalis pedis and posterior tibial pulses +1 to +2 bilaterally. ABDOMEN: Soft. Nontender. Bowel sounds active. No CVA tenderness. No mass felt. EXTREMITIES: +1 bilateral leg edema. Erythema anterior. Full range of motion of all extremities, equal. NEUROLOGIC: No focal deficit. Cranial nerves II through XII are grossly intact. No headache, no double vision or headache. SKIN: Not dry. Intact. Turgor - normal. LYMPHATIC: No palpable lymph nodes/no lymphedema. MUSCULOSKELETAL: Normal joints with no swelling. Muscle tone is normal. LABS: WBC 5.6, hgb 10.2, hct 31.6, plt count 198, sodium 137, potassium 3.7, BUN 27, creatinine 1.9, glucose 115, ABG on room air O2 saturation 96%, pH 7.46, pCo2 45, pO2 75, bicarb 32, total CO2 33. AST 24, ALT 10.7, Alkaline phosphate 63, troponin less than 0.01. Urine is cloudy, +1 blood, +1 leuk, 3+ bacteria. ASSESSMENT: 1. Urinary tract infection 2. Acute on chronic renal failure 3. Generalized weakness 4. COPD 5. Coronary artery disease 6. Dependent leg edema 7. CHF PLAN: 1. Routine telemetry orders 2. CBC and CMP daily 3. Normal Saline IV at 75cc an hour 4. Start Rocephin 1 gram IV daily 5. Urine for culture and sensitivity 6. Continue home medications 7. Hold Lasix 8. Elevate the legs 9. BNP 10. Chest x-ray 11. Regular diet Will follow closely. TIME SPENT: More than 70 minutes. MTDD
[2020-09-23] MEDS ORDERED: ZAROXOLYN PO SCH (09:00)
--- NOTE | 2020-09-23 13:37 | ECHO2D ---
Date of Exam: 09/22/2020 Ordering Physician: DR. APOLINAR BARNES Room #: 102 Reason for Echo: CAD S/P CATH, STENTS 2012, HTN, COPD, LEG EDEMA M-Mode Normal Adult Results LV Dimensions Normal Adult Results AoV Opening excursions >1.6 >1.6 LVEDD-base- 3.5-5.8 4.4 Ao root dimensions 2.0-3.7 3.0 LVESD-base- 3.1-4.6 L. Atrium dimensions 1.9-3.8 4.7 Post. Wall thickness 0.8-1.1 1.2 IV septum (thickness) 0.7-1.2 1.2 Post. Wall excursion 0.72-1.3 NORMAL Septal motion NORMAL Systolic motion R. Ventricular cavity 1.5-2.0 NORMAL LVEF 60% 59% Paradoxical septal wall motion NORMAL 2-D : 2-D M Mode Echocardiogram was performed using apical four chamber and left parasternal long and short axis views. Mitral, tricuspid and aortic valves appear to be normal. Contractility of the left ventricle seems to be normal, so is the cavity size. ENLARGED LEFT ATRIAL CAVITY SIZE. Aortic root appears to be normal. There is no pericardial effusion. There is no thrombus noted in the left ventricle or left atrial cavity. No mitral valve prolapse noted. DOPPLER: E WAVE >A WAVE ON MITRAL VALVE M-MODE: MV: NORMAL AV: NORMAL TV: NORMAL PV: CHAMBER SIZE: ENLARGED LEFT ATRIAL CAVITY WALL MOTION: NORMAL PERICARDIUM: NORMAL INTERPRETATION: 1. LEFT VENTRICULAR HYPERTROPHY WITH ENLARGED LEFT ATRIAL CAVITY 2. NORMAL LEFT VENTRICULAR CONTRACTILITY 3. NORMAL VALVES 4. E WAVE > A WAVE, DIASTOLIC DYSFUNCTION (MITRAL VALVE DOPPLER) MTDD
[2020-09-23] MEDS: ROCEPHIN 1 GM/50 ML D5W 1 GM/50 ML BAG IV SCH (20:38)
[2020-09-23] MEDS: SINGULAIR PO SCH (20:38)
[2020-09-24] MEDS: SODIUM CHLORIDE 1,000 ML IV SCH (02:11)
[2020-09-24 06:10] LABS: BASOPHILS % (AUTO) 0.7 % (0.0-3.0); EOSINOPHILS # (AUTO) 0.2 K/ul (0.0-0.7); EOSINOPHILS % (AUTO) 2.9 % (0.0-7.0); HEMATOCRIT 28.7 % (37.0-47.0); HEMOGLOBIN 9.2 g/dl (12.0-16.0); IMMATURE GRANULOCYTE % (AUTO) 0.7 % (0.0-5.0); LYMPHOCYTES # (AUTO) 1.5 K/uL (0.60-3.4); LYMPHOCYTES % (AUTO) 24.7 (10.0-50.0); MEAN CORPUSCULAR HEMOGLOBIN 30.7 pg (27.0-31.0); MEAN CORPUSCULAR HGB CONC 32.1 (31.8-35.4); MEAN CORPUSCULAR VOLUME 95.7 fl (81.0-99.0); MONOCYTES # (AUTO) 0.7 K/uL (0.4-2.0); MONOCYTES % (AUTO) 10.7 (0-10); NEUTROPHILS # (AUTO) 3.7 K/ul (2.0-6.9); NEUTROPHILS % (AUTO) 60.3 % (42.2-75.2); PLATELET COUNT 197 10^3/uL (140-440); RDW COEFFICIENT OF VARIATION 14.4 % (11.6-14.8); WHITE BLOOD COUNT 6.15 K/ul (4.6-10.2)
[2020-09-24 06:28] LABS: ALANINE AMINOTRANSFERASE 11.5 U/L (0-35); ALBUMIN 3.32 g/dL (3.5-5.0); ALKALINE PHOSPHATASE 90.1 U/L (53-141); ASPARTATE AMINO TRANSFERASE 23.3 U/L (14-36); BILIRUBIN,TOTAL 0.26 mg/dL (0.2-1.3); BLOOD UREA NITROGEN 35.5 mg/dL (7-17); CALCIUM 9.24 mg/dL (8.4-10.2); CHLORIDE 102.2 mmol/L (98-107); CREATININE 1.71 mg/dL (0.60-1.30); GLUCOSE 100.7 mg/dL (74-106); POTASSIUM 3.75 mmol/L (3.5-5.1); SODIUM 136.5 mmol/L (134.5-145); TOTAL PROTEIN 6.52 g/dL (6.3-8.2)
[2020-09-24] MEDS: PROTONIX PO SCH ×2 (06:47→17:59)
[2020-09-24] MEDS: CARAFATE PO SCH ×4 (06:48→20:25)
[2020-09-24] MEDS: SYNTHROID PO SCH (06:48)
[2020-09-24] MEDS: LASIX TAB PO SCH (06:48)
--- NOTE | 2020-09-24 08:46 | PCM.PROG ---
Attending Provider: ATTENDING PROVIDER: Dr. APOLINAR BARNES This patient is seen with Liana Solis, Nurse Practitioner. DATE OF SERVICE: 09/24/20 SUBJECTIVE: This 85 year old /WHITE F was hospitalized 09/21/20. The patient is resting comfortably. Dr. Barnes did echo yesterday. Still with chronic leg edema. Kidney function is better. REVIEW OF SYSTEMS: CONSTITUTIONAL: No night sweats. No fatigue, malaise, lethargy. No fever or chills. Weakness. HEENT: Eyes: No visual changes. No eye pain. No eye discharge. ENT: No runny nose. No epistaxis. No sinus pain. No odynophagia. No congestion. RESPIRATORY: No cough, no congestion. No hemoptysis. No shortness of breath. CARDIOVASCULAR: No angina symptoms. No CHF symptoms. No atypical chest pain for CAD. No palpitations. No orthopnea.. GASTROINTESTINAL: No abdominal pain. No nausea or vomiting. No diarrhea or constipation. No hematemesis. No hematochezia. GENITOURINARY: No urgency. No frequency. No dysuria. No hematuria. No obstructive symptoms. No discharge. No pain. No significant abnormal bleeding. MUSCULOSKELETAL: No musculoskeletal pain; no joint swelling. Leg edema. NEUROLOGICAL: Awake, alert, oriented to time, place and person. No headache. No neck pain. No syncope. No seizures. No dizziness. PSYCHIATRIC: Not anxious. No depression. No suicidal thoughts. No homicidal thoughts. SKIN: No rash. No lesions. No wounds. ENDOCRINE: No unexplained weight loss. No weight gain. HEMATOLOGIC/LYMPHATIC: No anemia. No purpura. No petechiae. No prolonged or excessive bleeding. No palpable lymph nodes. PHYSICAL EXAMINATION: GENERAL: The patient is awake, alert and oriented, lying in bed in no distress. VITAL SIGNS: Temperature 98.0 F, Pulse 68, Respiratory Rate 18, BP 134/64, Pul se Ox 96% HEENT: Head normocephalic, atraumatic. Eyes: Extraocular muscles are intact. Pupils are equal, round and reactive to light and accommodation. Ears: No lesions. Nose appeared normal. Throat: No exudate or erythema. NECK: Supple. No JVD, no carotid bruit. No lymphadenopathy or thyromegaly. LUNGS: Diminished breath sounds. Clear to auscultation. Percussion note normal. Chest symmetrical. HEART: S1, S2, no S3. No murmurs. No cyanosis or clubbing. No ascites. Pulses: Dorsalis pedis and posterior tibial pulses +1 to +2 both sides. ABDOMEN: Soft. Non-tender. Bowel sounds active. No CVA tenderness. No mass felt. EXTREMITIES: +1 bilateral leg edema. Full range of motion of all extremities, equal. NEUROLOGIC: No focal deficit. Cranial nerves II through XII are grossly intact. No headache, no double vision or headache. SKIN: Not dry. Intact. Turgor-normal. LYMPHATIC: No palpable lymph nodes/no lymphedema. MUSCULOSKELETAL: Normal joints with no swelling. Muscle tone is normal. LAB REVIEW: 09/24/20 04:52 09/24/20 04:52 09/24/20 04:52: Sodium 136.5, Potassium 3.75, Chloride 102.2, Carbon Dioxide 30.0, Anion Gap 8.05, BUN 35.5 H, Creatinine 1.71 H, Estimated GFR (MDRD) 28.00, BUN/Creatinine Ratio 20.76, Glucose 100.7, Calcium 9.24, Total Bilirubin 0.26, AST 23.3, ALT 11.5, Alkaline Phosphatase 90.1, Total Protein 6.52, Albumin 3.32 L, Globulin 3.20, Albumin/Globulin Ratio 1.03 09/24/20 04:52: WBC 6.15, RBC 3.00 L, Hgb 9.2 L, Hct 28.7 L, MCV 95.7, MCH 30.7, MCHC 32.1, RDW Coeff of Michael 14.4, Plt Count 197, Immature Gran % (Auto) 0.7, Neut % (Auto) 60.3, Lymph % (Auto) 24.7, [place] % (Auto) 10.7 H, Eos % (Auto) 2.9, Baso % (Auto) 0.7, Neut # (Auto) 3.7, Lymph # (Auto) 1.5, [place] # (Auto) 0.7, Eos # (Auto) 0.2, Baso # (Auto) 0.0, Immature Gran # (Auto) 0.0 ASSESSMENT: Please see below. 1. UTI positive E-coli 2. Chronic leg edema 3. Chronic anemia 4. COPD PLAN: 1. Discontinue IV fluids 2. Anticipate discharge today or tomorrow. Plan and coordination of the patient's care discussed in the presence of Slot Floor Supervisor and nurse. SCRIBED BY: Gail [facility] scribed while in presence of service performed by Dr. Barnes/Liana Solis APRN on 09/24/20 ([id number])
[2020-09-24] MEDS: PRAVACHOL PO SCH (10:16)
[2020-09-24] MEDS: VASOTEC PO SCH (10:17)
[2020-09-24] MEDS: CELEXA PO SCH (10:17)
[2020-09-24] MEDS: TOPROL XL PO SCH (10:17)
[2020-09-24] MEDS: MICRO-K CAP PO SCH (10:17)
[2020-09-24] MEDS: KLONOPIN PO SCH ×2 (10:17→20:25)
[2020-09-24] MEDS: ZYLOPRIM PO SCH (10:17)
[2020-09-24] MEDS: DITROPAN PO SCH (10:18)
--- NOTE | 2020-09-24 14:34 | PN ---
DATE OF SERVICE: 09/23/2020 SUBJECTIVE: 85 year old white female hospitalized with bilateral leg edema and UTI and change in the mental status. The patient's mental status has improved remarkably. First time she recognized me. Hydration status seems to have improved. Her appetite has been really great last couple of times and had her food brought into her. REVIEW OF SYSTEMS: CONSTITUTIONAL: No night sweats. No fatigue, malaise, lethargy. No fever or chills. HEENT: Eyes: No visual changes. No eye pain. No eye discharge. ENT: No runny nose. No epistaxis. No sinus pain. No sore throat. No odynophagia. No congestion. RESPIRATORY: No cough, no congestion. No hemoptysis. No shortness of breath. CARDIOVASCULAR: No angina symptoms. No CHF symptoms. No atypical chest pain for CAD. No palpitations. No PND. No orthopnea. GASTROINTESTINAL: No abdominal pain. No nausea or vomiting. No diarrhea or constipation. No hematemesis. No hematochezia. GENITOURINARY: No urgency. No frequency. No dysuria. No hematuria. No obstructive symptoms. No discharge. No pain. No significant abnormal bleeding. MUSCULOSKELETAL: No musculoskeletal pain; no joint swelling. NEUROLOGICAL: No headache. No neck pain. No syncope. No seizures. No dizziness. PSYCHIATRIC: Not anxious. No depression. No suicidal thoughts. No homicidal thoughts. SKIN: No rash. No lesions. No wounds. ENDOCRINE: No unexplained weight loss. No weight gain. HEMATOLOGIC/LYMPHATIC: No anemia. No purpura. No petechiae. No prolonged or excessive bleeding. No palpable lymph nodes. PHYSICAL EXAMINATION: VITAL SIGNS: Temperature 98.2, pulse 56, respiratory rate 16, blood pressure 130/62 and pulse ox 98% on room air. HEENT: Head normocephalic, atraumatic. Eyes: Extraocular muscles are intact. Pupils are equal, round and reactive to light and accommodation. Ears: No lesions. Nose appeared normal. Throat: No exudate or erythema. NECK: Supple. No JVD, no carotid bruit. No lymphadenopathy or thyromegaly. LUNGS: Clear to auscultation. Percussion note normal. Chest symmetrical. HEART: S1, S2, no S3. No murmurs. No cyanosis or clubbing. No ascites. Pulses: Dorsalis pedis and posterior tibial pulses +1 to +2 bilaterally. ABDOMEN: Soft. Nontender. Bowel sounds active. No CVA tenderness. No mass felt. EXTREMITIES: +1 edema. Full range of motion of all extremities, equal. NEUROLOGIC: No focal deficit. Cranial nerves II through XII are grossly intact. No headache, no double vision or headache. SKIN: Not dry. Intact. Turgor - normal. LYMPHATIC: No palpable lymph nodes/no lymphedema. MUSCULOSKELETAL: Normal joints with no swelling. Muscle tone is normal. LABS: Hgb 9.6, hct 29, WBC 5,700 normal differential, creatinine 1.8, BUN 37 ASSESSMENT: 1. UTI seems to be resolved 2. Bilateral leg edema, dependant seems to be resolving 3. Chronic anemia 4. Chronic kidney disease seems to be stable PLAN: 1. Elevate the legs 2. Continue antibiotics CONDITION: Improving. TIME SPENT: More than 30 minutes. Plan and coordination of the patient's care discussed in the presence of nurse. DESIRE
[2020-09-24] MEDS: SINGULAIR PO SCH (20:25)
[2020-09-24] MEDS: ROCEPHIN 1 GM/50 ML D5W 1 GM/50 ML BAG IV SCH (20:26)
[2020-09-25 05:32] VITALS: BP 116/57; TEMP 98.2
[2020-09-25 05:56] LABS: BASOPHILS % (AUTO) 0.5 % (0.0-3.0); EOSINOPHILS # (AUTO) 0.2 K/ul (0.0-0.7); EOSINOPHILS % (AUTO) 3.2 % (0.0-7.0); HEMATOCRIT 28.9 % (37.0-47.0); HEMOGLOBIN 9.2 g/dl (12.0-16.0); IMMATURE GRANULOCYTE # (AUTO) 0.1 (0.0-1.0); IMMATURE GRANULOCYTE % (AUTO) 0.8 % (0.0-5.0); LYMPHOCYTES # (AUTO) 1.6 K/uL (0.60-3.4); LYMPHOCYTES % (AUTO) 24.8 (10.0-50.0); MEAN CORPUSCULAR HEMOGLOBIN 30.4 pg (27.0-31.0); MEAN CORPUSCULAR HGB CONC 31.8 (31.8-35.4); MEAN CORPUSCULAR VOLUME 95.4 fl (81.0-99.0); MONOCYTES # (AUTO) 0.7 K/uL (0.4-2.0); MONOCYTES % (AUTO) 10.2 (0-10); NEUTROPHILS % (AUTO) 60.5 % (42.2-75.2); PLATELET COUNT 209 10^3/uL (140-440); RDW COEFFICIENT OF VARIATION 14.6 % (11.6-14.8); RED BLOOD COUNT 3.03 10^6/ul (4.20-5.40); WHITE BLOOD COUNT 6.54 K/ul (4.6-10.2)
[2020-09-25 06:09] LABS: ALANINE AMINOTRANSFERASE 11.1 U/L (0-35); ALBUMIN 3.33 g/dL (3.5-5.0); ALKALINE PHOSPHATASE 76.7 U/L (53-141); ASPARTATE AMINO TRANSFERASE 22.2 U/L (14-36); BILIRUBIN,TOTAL 0.29 mg/dL (0.2-1.3); BLOOD UREA NITROGEN 36.6 mg/dL (7-17); CALCIUM 9.17 mg/dL (8.4-10.2); CARBON DIOXIDE 27.4 mmol/L (22-30.0); CHLORIDE 104.3 mmol/L (98-107); CREATININE 1.53 mg/dL (0.60-1.30); GLUCOSE 96.2 mg/dL (74-106); POTASSIUM 3.45 mmol/L (3.5-5.1); SODIUM 137.8 mmol/L (134.5-145); TOTAL PROTEIN 6.47 g/dL (6.3-8.2)
[2020-09-25] MEDS: PROTONIX PO SCH (06:31)
[2020-09-25] MEDS: LASIX TAB PO SCH (06:31)
[2020-09-25] MEDS: CARAFATE PO SCH ×2 (06:31→11:17)
[2020-09-25] MEDS: SYNTHROID PO SCH (06:31)
[2020-09-25] MEDS: VASOTEC PO SCH (08:29)
[2020-09-25] MEDS: TOPROL XL PO SCH (08:30)
[2020-09-25] MEDS: KLONOPIN PO SCH (08:30)
[2020-09-25] MEDS: CELEXA PO SCH (08:30)
[2020-09-25] MEDS: MICRO-K CAP PO SCH (08:30)
[2020-09-25] MEDS: ZYLOPRIM PO SCH (08:30)
[2020-09-25] MEDS: DITROPAN PO SCH (08:30)
[2020-09-25] MEDS: PRAVACHOL PO SCH (08:30)
--- NOTE | 2020-09-25 08:47 | PCM.PROG ---
Attending Provider: ATTENDING PROVIDER: Dr. APOLINAR BARNES DATE OF SERVICE: 09/25/20 SUBJECTIVE: This 85 year old /WHITE F was hospitalized 09/21/20 with change in mental status, UTI and leg edema. The patient has improved remarkable with improvement in Kidney function. Appetite has improved. She is able to go to the bathroom on her own. REVIEW OF SYSTEMS: CONSTITUTIONAL: No night sweats. No fatigue, malaise, lethargy. No fever or chills. HEENT: Eyes: No visual changes. No eye pain. No eye discharge. ENT: No runny nose. No epistaxis. No sinus pain. No odynophagia. No congestion. RESPIRATORY: No cough, no congestion. No hemoptysis. No shortness of breath. CARDIOVASCULAR: No angina symptoms. No CHF symptoms. No atypical chest pain for CAD. No palpitations. No orthopnea.. GASTROINTESTINAL: No abdominal pain. No nausea or vomiting. No diarrhea or constipation. No hematemesis. No hematochezia. GENITOURINARY: No urgency. No frequency. No dysuria. No hematuria. No obstructive symptoms. No discharge. No pain. No significant abnormal bleeding. MUSCULOSKELETAL: No musculoskeletal pain; no joint swelling. NEUROLOGICAL: Awake, alert, oriented to time, place and person. No headache. No neck pain. No syncope. No seizures. No dizziness. PSYCHIATRIC: Not anxious. No depression. No suicidal thoughts. No homicidal thoughts. SKIN: No rash. No lesions. No wounds. ENDOCRINE: No unexplained weight loss. No weight gain. HEMATOLOGIC/LYMPHATIC: No anemia. No purpura. No petechiae. No prolonged or excessive bleeding. No palpable lymph nodes. PHYSICAL EXAMINATION: GENERAL: The patient is awake, alert and oriented, lying in bed in no distress. VITAL SIGNS: Temperature 98.2 F, Pulse 56, Respiratory Rate 16, BP 116/57, Pulse Ox 98% HEENT: Head normocephalic, atraumatic. Eyes: Extraocular muscles are intact. Pupils are equal, round and reactive to light and accommodation. Ears: No lesions. Nose appeared normal. Throat: No exudate or erythema. NECK: Supple. No JVD, no carotid bruit. No lymphadenopathy or thyromegaly. LUNGS: Decreased breath sounds. Clear to auscultation. Percussion note normal. Chest symmetrical. HEART: S1, S2, no S3. No murmurs. No cyanosis or clubbing. No ascites. Pulses: Dorsalis pedis and posterior tibial pulses +1 to +2 both sides. ABDOMEN: Soft. Non-tender. Bowel sounds active. No CVA tenderness. No mass felt. EXTREMITIES: Trace pitting edema. Redness resolved. Full range of motion of all extremities, equal. NEUROLOGIC: No focal deficit. Cranial nerves II through XII are grossly intact. No headache, no double vision or headache. SKIN: Warm and dry. Intact. Turgor-normal. LYMPHATIC: No palpable lymph nodes/no lymphedema. MUSCULOSKELETAL: Normal joints with no swelling. Muscle tone is normal. LAB REVIEW: 09/25/20 04:45 09/25/20 04:45 09/25/20 04:45: Sodium 137.8, Potassium 3.45 L, Chloride 104.3, Carbon Dioxide 27.4, Anion Gap 9.55, BUN 36.6 H, Creatinine 1.53 H, Estimated GFR (MDRD) 32.00, BUN/Creatinine Ratio 23.92, Glucose 96.2, Calcium 9.17, Total Bilirubin 0.29, AST 22.2, ALT 11.1, Alkaline Phosphatase 76.7, Total Protein 6.47, Albumin 3.33 L, Globulin 3.14, Albumin/Globulin Ratio 1.06 09/25/20 04:45: WBC 6.54, RBC 3.03 L, Hgb 9.2 L, Hct 28.9 L, MCV 95.4, MCH 30.4, MCHC 31.8, RDW Coeff of Michael 14.6, Plt Count 209, Immature Gran % (Auto) 0.8, Neut % (Auto) 60.5, Lymph % (Auto) 24.8, [place] % (Auto) 10.2 H, Eos % (Auto) 3.2, Baso % (Auto) 0.5, Neut # (Auto) 4.0, Lymph # (Auto) 1.6, [place] # (Auto) 0.7, Eos # (Auto) 0.2, Baso # (Auto) 0.0, Immature Gran # (Auto) 0.1 ASSESSMENT: Please see below. 1. UTI seems to be under control 2. Leg edema seems to be resolved 3. Dependent edema advised to raise legs 4. Redness of pigmentation PLAN: 1. Increase Potassium 20meq daily from 10meq. 2. Omnicef 300mg BID for 5 days 3. Elevate legs 4. Niferex added as iron pill 5. Repeatedly asked about colonoscopy which she has decline. Plan and coordination of the patient's care discussed in the presence of Chief Wellness Officer and nurse. CONDITION: Stable SCRIBED BY: Gail [facility] scribed while in presence of service performed by Dr. APOLINAR BARNES on 09/25/20 ([id number])
--- NOTE | 2020-09-25 10:09 | PN ---
DATE OF SERVICE: 09/21/20 - ADMIT NOTE SUBJECTIVE: The patient is a 85-year-old female brought to the emergency room because of having leg edema bilateral, +2 to +3 pitting with redness. She also had abnormal UA. According to the family, the patient's mental condition has somewhat deteriorated. She has dementia. She is not getting up and cleaning herself. PHYSICAL EXAMINATION: HEENT: Head normocephalic, atraumatic. Eyes: Extraocular muscles are intact. Pupils are equal, round and reactive to light and accommodation. Ears: No lesions. Nose appeared normal. Throat: No exudate or erythema. NECK: Supple. No JVD, no carotid bruit. No lymphadenopathy or thyromegaly. LUNGS: Clear to auscultation. Percussion note normal. Chest symmetrical. HEART: S1, S2, no S3. No murmurs. No cyanosis or clubbing. No ascites. Pulses: Dorsalis pedis and posterior tibial pulses +1 to +2 bilaterally. ABDOMEN: Soft. Nontender. Bowel sounds active. No CVA tenderness. No mass felt. EXTREMITIES: +2 to +3 pitting edema with some redness likely from scratch hemosideran pigmentation. Full range of motion of all extremities, equal. NEUROLOGIC: No focal deficit. Cranial nerves II through XII are grossly intact. No headache, no double vision or headache. SKIN: Not dry. Intact. Turgor - normal. LYMPHATIC: No palpable lymph nodes/no lymphedema. MUSCULOSKELETAL: Normal joints with no swelling. Muscle tone is normal. LABS: The patient's labs were acceptable except for UA showed leukocyste estrace positive and bacteria positive. The patient also has creatinine of 1.9 with elevated BUN. ASSESSMENT: 1. Urinary tract infection. 2. Bilateral dependent leg edema. 3. Renal azotemia. 4. Dementia with some worsening of the mental status. 5. History of coronary artery disease with stent. 6. Congestive heart failure. 7. Obesity. 8. Hypertension. 9. Dyslipidemia. PLAN: 1. Rocephin to be given 1 gm q.24. 2. Lasix 20 mg. 3. Elevate the legs. 4. Daily CBC, CMP. 5. Routine telemetry orders with telemetry monitoring and oximetry. CONDITION: Stable. TIME SPENT: More than 30 minutes. Plan and coordination of the patient's care discussed in the presence of nurse. DESIRE
--- NOTE | 2020-09-25 10:19 | PN ---
DATE OF SERVICE: 09/22/20 SUBJECTIVE: The patient was seen and examined with the nurse practitioner. The patient's condition seems to have improved. Her hydration status is somewhat better. Leg edema is +1 with puckering of the skin noted on both lower extremities. No evidence of CHF. Condition is improving. TIME SPENT: More than 30 minutes. Plan and coordination of the patient's care discussed in the presence of nurse. DESIRE
--- NOTE | 2020-09-25 10:21 | PN ---
DATE OF SERVICE: 09/24/20 SUBJECTIVE: The patient was seen and examined with the nurse practitioner. Her leg edema is much less. She is feeling better. Her mental status has improved. Very likely she will be discharged tomorrow. TIME SPENT: More than 30 minutes. Plan and coordination of the patient's care discussed in the presence of nurse. DESIRE
--- NOTE | 2020-09-25 11:08 | CM.DICTOOL ---
ADMISSION: 09/21/20 19:41 DISCHARGE: SEPTEMBER 25, 2020 DATE OF SERVICE: 09/25/20 FINAL DIAGNOSIS: URINARY TRACT INFECTION, E-COLI ORGANIISM CHRONIC LEG EDEMA ACUTE RENAL FAILURE, IMPROVED CHRONIC KIDNEY DISEASE CONGESTIVE HEART FAILURE GERD CHRONIC ANEMIA COPD (OXYGEN AT HS AND PRN) HYPERTENSION CORONARY ARTERY DISEASE HYPOTHYROIDISM DYSLIPIDEMIA NON-COMPLIANCE MEDS, LIFESTYLE, DIET AND F/U PREVIOUS SMOKER PFT, 2013 MILD TO MODERATE COPD/RESTRICTIVE LUNG DISEASE ECHOCARDIOGRAM (2019) LVH WITH ENLARGED LEFT ATRIAL CAVITY LVEF 56% NORMAL CONTRACTILITY VALVES NORMAL LVEF 59% E WAVE GREATER THAN A WAVE, DIASTOLIC DYSFUNCTION (MITRAL VALVE DOPPLER) BILATERAL TKR HYSTERECTOMY STENT APPLICATION ENDOSCOPY WITH ESOPHAGEAL DILATATION (DISTAL ESOPHAGEAL SCHATZKI'S RING) 2017 (DR. CAMARA) LAST VITALS Temp Pulse Resp BP Pulse Ox 98.2 F 56 L 16 116/57 L 98 09/25/20 05:30 09/25/20 05:30 09/25/20 05:30 09/25/20 05:30 09/25/20 05:30 TAKE THESE MEDICATIONS AT HOME Allopurinol (Allopurinol 100 Mg Tablet) 100 mg PO DAILY [facility] Last Admin: 09/25/20 08:30 Dose: 100 mg Documented by: Citalopram Hydrobromide (Citalopram Hydrobromide 20 Mg Tablet) 20 mg PO DAILY [facility] Last Admin: 09/25/20 08:30 Dose: 20 mg Documented by: Clonazepam (Clonazepam 0.5 Mg Tablet) 0.5 mg PO BID [facility] Last Admin: 09/25/20 08:30 Dose: 0.5 mg Documented by: Enalapril Maleate (Enalapril Maleate 5 Mg Tablet) 5 mg PO DAILY [facility] Last Admin: 09/25/20 08:29 Dose: 5 mg Documented by: Furosemide (Furosemide 40 Mg Tablet) 40 mg PO QDAC [facility] Last Admin: 09/25/20 06:31 Dose: 40 mg Documented by: Levothyroxine Sodium (Levothyroxine Sodium 75 Mcg Tablet) 75 mcg PO QDAC [facility] Last Admin: 09/25/20 06:31 Dose: 75 mcg Documented by: Metolazone (Metolazone 2.5 Mg Tablet) 2.5 mg PO MoWeFr@0900 [facility] Metoprolol Succinate (Metoprolol Succinate 50 Mg Tab.Er.24h) 50 mg PO DAILY [facility] Last Admin: 09/25/20 08:30 Dose: 50 mg Documented by: Montelukast Sodium (Montelukast Sodium 10 Mg Tablet) 10 mg PO BEDTIME [facility] Last Admin: 09/24/20 20:25 Dose: 10 mg Documented by: Oxybutynin Chloride (Oxybutynin Chloride 5 Mg Tablet) 5 mg PO DAILY [facility] Last Admin: 09/25/20 08:30 Dose: 5 mg Documented by: Pantoprazole Sodium (Pantoprazole Sodium 40 Mg Tablet.Dr) 40 mg PO BIDAC [facility] Last Admin: 09/25/20 06:31 Dose: 40 mg Documented by: Potassium Chloride (Potassium Chloride 10 Meq Capsule.Er) 20 meq PO DAILYWM [facility] (RX) Last Admin: 09/25/20 08:30 Dose: 10 meq Documented by: Pravastatin Sodium (Pravastatin Sodium 40 Mg Tablet) 80 mg PO DAILY [facility] Last Admin: 09/25/20 08:30 Dose: 80 mg Documented by: Sucralfate (Sucralfate Susp 1 Gm/10 Ml Cup) 1 gm PO ACHS [facility] Last Admin: 09/25/20 06:31 Dose: 1 gm Documented by: Tramadol HCl (Tramadol Hcl 50 Mg Tablet) 50 mg PO TID PRN PRN Reason: Pain OMNICEF 300 MG BID FOR 5 DAYS (RX) NIFEREX 150 MG DAILY (RX) ALLERGIES hydrocodone [From Lortab] Adverse Reaction (Verified 09/21/20 16:11) meperidine HCl [From Demerol] Adverse Reaction (Verified 09/21/20 16:11) pregabalin [From Lyrica] Adverse Reaction (Verified 09/21/20 16:11) DISCONTINUED MEDICATIONS POTASSIUM CHLORIDE 10 MEQ DAILY NEW PRESCRIPTIONS: NIFEREX 150 MG DAILY POTASSIUM CHLORIDE (MICRO K) 20 MEQ DAILY OMNICEF 300 MG BID FOR 5 DAYS SMOKING: NOT APPLICABLE DISEASE SPECIFIC EDUCATION: APPOINTMENT PRESCRIPTIONS DIET ELEVATING LEGS LAB REVIEW: 09/25/20 04:45 09/25/20 04:45 09/25/20 04:45: Sodium 137.8, Potassium 3.45 L, Chloride 104.3, Carbon Dioxide 27.4, Anion Gap 9.55, BUN 36.6 H, Creatinine 1.53 H, Estimated GFR (MDRD) 32.00, BUN/Creatinine Ratio 23.92, Glucose 96.2, Calcium 9.17, Total Bilirubin 0.29, AST 22.2, ALT 11.1, Alkaline Phosphatase 76.7, Total Protein 6.47, Albumin 3.33 L, Globulin 3.14, Albumin/Globulin Ratio 1.06 09/25/20 04:45: WBC 6.54, RBC 3.03 L, Hgb 9.2 L, Hct 28.9 L, MCV 95.4, MCH 30.4, MCHC 31.8, RDW Coeff of Michael 14.6, Plt Count 209, Immature Gran % (Auto) 0.8, Neut % (Auto) 60.5, Lymph % (Auto) 24.8, [place] % (Auto) 10.2 H, Eos % (Auto) 3.2, Baso % (Auto) 0.5, Neut # (Auto) 4.0, Lymph # (Auto) 1.6, [place] # (Auto) 0.7, Eos # (Auto) 0.2, Baso # (Auto) 0.0, Immature Gran # (Auto) 0.1 PLAN: DISCHARGE HOME DIET: RESUME TOLERATED ACTIVITY: RESUME TOLERATED ELEVATE LEGS AT NIGHT AND WHEN SITTING IN THE CHAIR AN APPOINTMENT IS SCHEDULED WITH DR. BARNES/ANNA JULIAN APRN/TORIBIO HERNANDEZ APRN ON September AT 2:45 PM CODE STATUS: FULL CODE [facility] WILL RESUME CARE FOR NURSING ASSESSMENT INCLUDING ASSESSMENT OF EDEMA TO LOWER EXTREMITIES, VITAL SIGNS, MEDICATION MANAGEMENT AND ANY THERAPY NEEDS THE PATIENT MAY HAVE MS. CAMPBELL IS ALERT AND ORIENTED X 4. SHE IS AGREEABLE TO PLANS FOR DISCHARGE HOME TODAY. MS. CAMPBELL LIVES ALONE. SHE IS INDEPENDENT WITH ACTIVITIES OF DAILY LIVING. SHE IS AMBULATORY IN THE ROOM WITH AND WITHOUT USE OF A ROLLING WALKER. SHE IS STAND BY ASSIST OF 1, BUT HAS AMBULATED TO THE BATHROOM WITHOUT STAFF ASSISTANCE. MS. CAMPBELL IS INDEPENDENT WITH BED MOBILITY. SHE IS INDEPENDENT WITH FEEDING. MEAL INTAKES ARE GOOD AT 75-100%. SHE DENIES ABDOMINAL PAIN OR NAUSEA. SHE IS CONTINENT OF BOWEL AND BLADDER. SHE DOES REPORT DRIBBLING OF URINE, BUT DENIES PAIN, BURNING OR FREQUENCY. SHE WEARS DEPENDS UNDERGARMENTS AND USES A PANTY LINER DUE TO URINARY DRIBBLING. SHE REPORTS HER BACK PAIN HAS IMPROVED. HYDRATION STATUS HAS IMPROVED. SKIN TURGOR IS GOOD. SKIN IS INTACT. 1+ EDEMA CONTINUES TO THE ANKLES AND LOWER LEGS. A RED, RAISED RASH LIKE AREA IS NOTED TO THE LATERAL RIGHT LOWER LEG AND ANKLE. SHE REPORTS ITCHING OF THE AREA AT TIMES. NO DRAINGE OR OPEN AREAS ARE NOTED. SHE IS ENCOURAGED TO ELEVATE THE LEGS AT NIGHT AND WHILE SITTING TO LESSEN THE SWELLING. MS CAMPBELL REPORTS SHE USES OXYGEN AT NIGHT AND NEEDED DURING THE DAY. SHE HAS OXYGEN, SHOWER CHAIR AND A ROLLING WALKER AVAILABLE AT HOME. SHE RELIES ON HER CHILDREN FOR ASSISTANCE. APOLINAR BARNES MD
--- NOTE | 2020-09-25 11:09 | DS ---
DATE OF SERVICE: 09/25/2020 FINAL DIAGNOSIS: URINARY TRACT INFECTION, E-COLI ORGANISM CHRONIC LEG EDEMA ACUTE RENAL FAILURE, IMPROVED CHRONIC KIDNEY DISEASE CONGESTIVE HEART FAILURE GERD CHRONIC ANEMIA COPD (OXYGEN AT HS AND PRN) HYPERTENSION CORONARY ARTERY DISEASE HYPOTHYROIDISM DYSLIPIDEMIA NON-COMPLIANCE MEDS, LIFESTYLE, DIET AND F/U PREVIOUS SMOKER PFT, 2013 MILD TO MODERATE COPD/RESTRICTIVE LUNG DISEASE ECHOCARDIOGRAM (2019) LVH WITH ENLARGED LEFT ATRIAL CAVITY LVEF 56% NORMAL CONTRACTILITY VALVES NORMAL LVEF 59% E WAVE GREATER THAN A WAVE, DIASTOLIC DYSFUNCTION (MITRAL VALVE DOPPLER) BILATERAL TKR HYSTERECTOMY STENT APPLICATION ENDOSCOPY WITH ESOPHAGEAL DILATATION (DISTAL ESOPHAGEAL SCHATZKI'S RING) 2017 (DR. CAMARA) LAST VITALS: Temp Pulse Resp BP Pulse Ox 98.2 F 56 L 16 116/57 L 98 09/25/20 05:30 09/25/20 05:30 09/25/20 05:30 09/25/20 05:30 09/25/20 05:30 DISCHARGE INSTRUCTIONS: DISCHARGE HOME. AN APPOINTMENT IS SCHEDULED WITH DR. BARNES/ANNA JULIAN APRN/TORIBIO HERNANDEZ APRN ON September AT 2:45 PM. CODE STATUS: FULL CODE. [facility] WILL RESUME CARE FOR NURSING ASSESSMENT INCLUDING ASSESSMENT OF EDEMA TO LOWER EXTREMITIES, VITAL SIGNS, MEDICATION MANAGEMENT AND ANY THERAPY NEEDS THE PATIENT MAY HAVE. TAKE THESE MEDICATIONS AT HOME: Allopurinol (Allopurinol 100 Mg Tablet) 100 mg PO DAILY [facility] Last Admin: 09/25/20 08:30 Dose: 100 mg Documented by: Citalopram Hydrobromide (Citalopram Hydrobromide 20 Mg Tablet) 20 mg PO DAILY [facility] Last Admin: 09/25/20 08:30 Dose: 20 mg Documented by: Clonazepam (Clonazepam 0.5 Mg Tablet) 0.5 mg PO BID [facility] Last Admin: 09/25/20 08:30 Dose: 0.5 mg Documented by: Enalapril Maleate (Enalapril Maleate 5 Mg Tablet) 5 mg PO DAILY [facility] Last Admin: 09/25/20 08:29 Dose: 5 mg Documented by: Furosemide (Furosemide 40 Mg Tablet) 40 mg PO QDAC [facility] Last Admin: 09/25/20 06:31 Dose: 40 mg Documented by: Levothyroxine Sodium (Levothyroxine Sodium 75 Mcg Tablet) 75 mcg PO QDAC [facility] Last Admin: 09/25/20 06:31 Dose: 75 mcg Documented by: Metolazone (Metolazone 2.5 Mg Tablet) 2.5 mg PO MoWeFr@0900 [facility] Metoprolol Succinate (Metoprolol Succinate 50 Mg Tab.Er.24h) 50 mg PO DAILY [facility] Last Admin: 09/25/20 08:30 Dose: 50 mg Documented by: Montelukast Sodium (Montelukast Sodium 10 Mg Tablet) 10 mg PO BEDTIME [facility] Last Admin: 09/24/20 20:25 Dose: 10 mg Documented by: Oxybutynin Chloride (Oxybutynin Chloride 5 Mg Tablet) 5 mg PO DAILY [facility] Last Admin: 09/25/20 08:30 Dose: 5 mg Documented by: Pantoprazole Sodium (Pantoprazole Sodium 40 Mg Tablet.Dr) 40 mg PO BIDAC [facility] Last Admin: 09/25/20 06:31 Dose: 40 mg Documented by: Potassium Chloride (Potassium Chloride 10 Meq Capsule.Er) 20 meq PO DAILYWM [facility] (RX) Last Admin: 09/25/20 08:30 Dose: 10 meq Documented by: Pravastatin Sodium (Pravastatin Sodium 40 Mg Tablet) 80 mg PO DAILY [facility] Last Admin: 09/25/20 08:30 Dose: 80 mg Documented by: Sucralfate (Sucralfate Susp 1 Gm/10 Ml Cup) 1 gm PO [facility] Last Admin: 09/25/20 06:31 Dose: 1 gm Documented by: Tramadol HCl (Tramadol Hcl 50 Mg Tablet) 50 mg PO TID PRN PRN Reason: Pain OMNICEF 300 MG BID FOR 5 DAYS (RX) NIFEREX 150 MG DAILY (RX) ALLERGIES: hydrocodone [From Lortab] Adverse Reaction (Verified 09/21/20 16:11) meperidine HCl [From Demerol] Adverse Reaction (Verified 09/21/20 16:11) pregabalin [From Lyrica] Adverse Reaction (Verified 09/21/20 16:11) DISCONTINUED MEDICATIONS: POTASSIUM CHLORIDE 10 MEQ DAILY NEW PRESCRIPTIONS: NIFEREX 150 MG DAILY POTASSIUM CHLORIDE (MICRO K) 20 MEQ DAILY OMNICEF 300 MG BID FOR 5 DAYS SMOKING: NOT APPLICABLE DISEASE SPECIFIC EDUCATION: APPOINTMENT PRESCRIPTIONS DIET ELEVATING LEGS LAB REVIEW: 09/25/20 04:45 09/25/20 04:45 09/25/20 04:45: Sodium 137.8, Potassium 3.45 L, Chloride 104.3, Carbon Dioxide 27.4, Anion Gap 9.55, BUN 36.6 H, Creatinine 1.53 H, Estimated GFR (MDRD) 32.00, BUN/Creatinine Ratio 23.92, Glucose 96.2, Calcium 9.17, Total Bilirubin 0.29, AST 22.2, ALT 11.1, Alkaline Phosphatase 76.7, Total Protein 6.47, Albumin 3.33 L, Globulin 3.14, Albumin/Globulin Ratio 1.06 09/25/20 04:45: WBC 6.54, RBC 3.03 L, Hgb 9.2 L, Hct 28.9 L, MCV 95.4, MCH 30.4, MCHC 31.8, RDW Coeff of Michael 14.6, Plt Count 209, Immature Gran % (Auto) 0.8, Neut % (Auto) 60.5, Lymph % (Auto) 24.8, Hamblen % (Auto) 10.2 H, Eos % (Auto) 3.2, Baso % (Auto) 0.5, Neut # (Auto) 4.0, Lymph # (Auto) 1.6, Hamblen # (Auto) 0.7, Eos # (Auto) 0.2, Baso # (Auto) 0.0, Immature Gran # (Auto) 0.1 DIET: RESUME TOLERATED ACTIVITY: RESUME TOLERATED ELEVATE LEGS AT NIGHT AND WHEN SITTING IN THE CHAIR HOSPITAL COURSE: 85 year old white female hospitalized with change in the mental status, UTI and leg edema. The patient was treated with leg elevation and IV Lasix initially. She was put on antibiotics, IV Rocephin and on discharge was switched to Omnicef. The patient's condition improved now she is up and about on her going to the bathroom much better. Mental status has improved. Her potassium increased to 20meq. She has chronic anemia for which she was advised and also declined EGD and colonoscopy. Especially the daughter is aware of it. She has coronary artery disease which seems to be stable. Her echo showed normal LV contractility. The patient's BMI is 34. she eats alot. She was advised to lose weight. The patient lives by herself with help of daughter. Mild dementia which seems to be progressing. The patient's discharged condition it stable. She is DNR. The patient was discharged on Omnicef, Niferex 150mg and K-tab 20meq daily. She is instructed to come back in 5-7 days on followup. On discharge the patient's leg edema had practically resolved. Mental status had improved. Labs on discharge hgb 9.2, hct 28, WBC 6,500 normal differential, creatinine 1.5, BUN 36, potassium 3.45. CONDITION: Stable. TIME SPENT: More than 60 minutes. MTDD
--- NOTE | 2020-09-25 11:10 | PN ---
09/21/2020: Level 5 09/22/2020: Intermediate 09/23/2020: Intermediate 09/24/2020: Intermediate 09/25/2020: D as in discharge MTDD
== END 2020-09-25 12:30 | disposition home or self-care (01) | DRG 684 ==
LOC: ED 15:57 → MEDSURG A 15:57 → OBSVTOIN 19:41 → MEDSURG A 20:10
PROVIDERS: ADMIT Internal Medicine; ATTEND Internal Medicine
DX: E78.5 Hyperlipidemia, unspecified; M79.604 Pain in right leg; B96.20 Unspecified Escherichia coli [E. coli] as the cause of diseases classified elsewhere; N17.9 Acute kidney failure, unspecified; R53.1 Weakness; I25.10 Atherosclerotic heart disease of native coronary artery without angina pectoris; M79.9 Soft tissue disorder, unspecified; I10 Essential (primary) hypertension; D64.9 Anemia, unspecified; R60.0 Localized edema; M79.605 Pain in left leg; J44.9 Chronic obstructive pulmonary disease, unspecified; R79.89 Other specified abnormal findings of blood chemistry; K21.9 Gastro-esophageal reflux disease without esophagitis; I50.9 Heart failure, unspecified; R05 Cough; N18.9 Chronic kidney disease, unspecified; R06.00 Dyspnea, unspecified; F03.90 Unspecified dementia, unspecified severity, without behavioral disturbance, psychotic disturbance, mood disturbance, and anxiety

== ENCOUNTER 2020-10-09 12:58 | Inpatient (IN) ==
[2020-10-09 13:38] LABS: BASOPHILS % (AUTO) 0.5 % (0.0-3.0); EOSINOPHILS # (AUTO) 0.2 K/ul (0.0-0.7); EOSINOPHILS % (AUTO) 3.3 % (0.0-7.0); HEMATOCRIT 31.8 % (37.0-47.0); HEMOGLOBIN 10.4 g/dl (12.0-16.0); IMMATURE GRANULOCYTE % (AUTO) 0.7 % (0.0-5.0); LYMPHOCYTES # (AUTO) 1.6 K/uL (0.60-3.4); LYMPHOCYTES % (AUTO) 26.8 (10.0-50.0); MEAN CORPUSCULAR HEMOGLOBIN 31.1 pg (27.0-31.0); MEAN CORPUSCULAR HGB CONC 32.7 (31.8-35.4); MEAN CORPUSCULAR VOLUME 95.2 fl (81.0-99.0); MONOCYTES # (AUTO) 0.6 K/uL (0.4-2.0); NEUTROPHILS # (AUTO) 3.5 K/ul (2.0-6.9); NEUTROPHILS % (AUTO) 58.7 % (42.2-75.2); PLATELET COUNT 255 10^3/uL (140-440); RDW COEFFICIENT OF VARIATION 14.8 % (11.6-14.8); RED BLOOD COUNT 3.34 10^6/ul (4.20-5.40); WHITE BLOOD COUNT 6.01 K/ul (4.6-10.2)
[2020-10-09 13:50] LABS: ALANINE AMINOTRANSFERASE 14.6 U/L (0-35); ALBUMIN 4.02 g/dL (3.5-5.0); ALKALINE PHOSPHATASE 74.4 U/L (53-141); ASPARTATE AMINO TRANSFERASE 32.6 U/L (14-36); BILIRUBIN,TOTAL 0.5 mg/dL (0.2-1.3); CALCIUM 9.52 mg/dL (8.4-10.2); CARBON DIOXIDE 29.7 mmol/L (22-30.0); CHLORIDE 102.6 mmol/L (98-107); CREATINE KINASE 143.6 U/L (30-135); CREATININE 2.56 mg/dL (0.60-1.30); GLUCOSE 102.1 mg/dL (74-106); POTASSIUM 4.27 mmol/L (3.5-5.1); SODIUM 137.6 mmol/L (134.5-145); TOTAL PROTEIN 7.54 g/dL (6.3-8.2)
[2020-10-09 14:04] LABS: ABG PH 7.41 (7.35-7.45)
[2020-10-09 14:05] LABS: CREATINE KINASE MB 2.91 ng/ml (0.0-2.38)
[2020-10-09] MEDS ORDERED: SODIUM CHLORIDE 500 ML IV STA (14:16)
--- NOTE | 2020-10-09 14:54 | ED.PDOC ---
General ED Provider: Dr. KAYLAH BENSON Chief Complaint: Abnormal Labs Stated Complaint: 85 year old female presents to ED for eval of worsening renal function after admission for IV antibiotics for Tx of UTI. Discharged 09/25/20 and seen in follow up a few days ago. BUN/CR doubled so she was sent to the ED for evaluation and probable admission for gentle re-hydration. Denies fever, chills or sweats, n/v/d, chest pains or SOB. Tolerating po well, no adverse symptoms at all. Time Seen by Physician: 13:10 Mode of Arrival: Wheelchair Information Source: Patient Exam Limitations: No limitations Primary Care Provider: APOLINAR BARNES Referred to ED by: Clinic Seen Within Last 72 Hours for Same Complaint By: Clinic Nursing and Triage Documentation Reviewed and Agree: Yes Does patient meet sepsis criteria?: No System Inflammatory Response Syndrome: Not Applicable Sepsis Protocol: For patient's 13 years and over: Temp is 96.8 and below OR 101 and greater Pulse >90 BPM Resp >20/minute Acutely Altered Mental Status Are patient's symptoms suggestive of a new infection, such as: -Pneumonia -Skin, Soft Tissue -Endocarditis -UTI -Bone, Joint Infection -Implantable Device -Acute Abdominal Infection -Wound Infection -Meningitis -Blood Stream Catheter Infection -Unknown Miscellaneous Complaint Exam Physical Examination Complaint/Exam Onset/Duration: 2-3 days Symptoms Are: Still present Timing: Constant Initial Severity: Mild Current Severity: None Associated Signs and Symptoms: None Specific Findings: None Differential Diagnoses: Dehydration, Acute Kidney injury Review of Systems Review Of Systems Constitutional: Reports No symptoms Eyes: Reports No symptoms Ears, Nose, Mouth, Throat: Reports No symptoms Respiratory: Reports No symptoms Cardiac: Reports No symptoms GI: Reports No symptoms : Reports No symptoms Musculoskeletal: Reports No symptoms Skin: Reports No symptoms Neurological: Reports No symptoms Endocrine: Reports No symptoms Hematologic/Lymphatic: Reports No symptoms All Other Systems: Reviewed and Negative [facility] Medical History Anxiety CHF (congestive heart failure) COPD (chronic obstructive pulmonary disease) Depression Diabetes Emphysema of lung Family History FATHER Cancer Social History Smoking and tobacco status: Former smoker How long ago did patient quit smokin+ YEARS Alcohol intake: never History of recent travel: No Current diet type/program: low salt Surgical History History of bilateral knee replacement History of hysterectomy Stented coronary artery Female Reproductive History Menstrual Hx Hysterectomy: Yes Hx Tubal Ligation: No Physical Exam Physical Exam Appearance: Reports Well-appearing, No pain distress, Well-nourished, Obese and Other (elderly) Ill-appearing: None Pain Distress: None Eyes: Reports JORDAN, EOMI and Conjunctiva clear ENT: Reports Ears normal, Nose normal and Oropharynx normal Neck: Supple Respiratory: Reports Airway patent, Breath sounds clear, Breath sounds equal and Respirations nonlabored Cardiovascular: Reports RRR, Pulses normal, No rub and No murmur GI/: Reports Soft, Nontender, No masses, Bowel sounds normal and No Organomegaly Musculoskeletal: Reports Normal strength, ROM intact, No edema and No calf te nderness Skin: Reports Warm, Dry and Normal color Neurological: Reports Sensation intact, Motor intact, Reflexes intact, Cranial nerves intact, Alert and Oriented Psychiatric: Reports Affect appropriate and Mood appropriate Interpretation EKG Interpretation Time of EKG #1: 13:52 Rate: Normal Rhythm: Sinus Ectopy: None Deane: NL and Left ST Segment: Normal Interpretation: non specific Re-Evaluation Re-Evaluation Time of Re-Evaluation: 16:00 Status: Improved Vital Signs Stable: Yes Appearance: NAD Lungs: Clear Skin: Warm and Dry Neuro: Alert and Oriented X3 CV: RRR Physician Notification Case Discussed Physician Notified: Dr. Barnes Time of Notification: 16:30 Time of Discussion: 16:30 Admit/Transition Orders Entered by ED Provider: Yes Admit To: Observation Critical Care Note Critical Care Note Total Critical Care Time (mins): 0 Course Course Hematology/Chemistry: 10/09/20 13:32 10/09/20 13:32 Orders, Labs, Meds: Lab Review 10/09/20 10/09/20 10/09/20 13:32 13:32 14:00 WBC 6.01 RBC 3.34 L Hgb 10.4 L Hct 31.8 L MCV 95.2 MCH 31.1 H MCHC 32.7 RDW Coeff of Michael 14.8 Plt Count 255 Immature Gran % (Auto) 0.7 Neut % (Auto) 58.7 Lymph % (Auto) 26.8 Mitchell % (Auto) 10.0 Eos % (Auto) 3.3 Baso % (Auto) 0.5 Neut # (Auto) 3.5 Lymph # (Auto) 1.6 Mitchell # (Auto) 0.6 Eos # (Auto) 0.2 Baso # (Auto) 0.0 Immature Gran # (Auto) 0.0 Puncture Site R brach Base Excess 4.6 H O2 Saturation 92.6 L ABG pH 7.41 ABG pCO2 46.0 H ABG pO2 65.0 L ABG HCO3 29.2 H ABG Total CO2 30.6 H Bobby Test + Hemoglobin 1.3 Oxyhemoglobin 93.6 L Carboxyhemoglobin 1.9 H Total Hemoglobin 10.1 L FiO2 % 21.0 Sodium 137.6 Potassium 4.27 Chloride 102.6 Carbon Dioxide 29.7 Anion Gap 9.57 BUN 53.0 H Creatinine 2.56 H Estimated GFR (MDRD) 18.00 BUN/Creatinine Ratio 20.70 Glucose 102.1 Calcium 9.52 Total Bilirubin 0.50 AST 32.6 ALT 14.6 Alkaline Phosphatase 74.4 Total Creatine Kinase 143.6 H CK-MB (CK-2) 2.910 H CK-MB (CK-2) % 2.0200 Total Protein 7.54 Albumin 4.02 Globulin 3.52 Albumin/Globulin Ratio 1.14 Orders Category Date Time Status ABG DRAW REQUEST Stat CARDIO 10/09/20 13:51 Completed EKG-(ED ONLY) Stat CARDIO 10/09/20 13:21 Completed ARTERIAL BLOOD GAS [ABG COOX] Stat LAB 10/09/20 14:00 Completed CBC W/ AUTO DIFF Stat LAB 10/09/20 13:32 Completed COMPREHENSIVE METABOLIC PANEL Stat LAB 10/09/20 13:32 Completed CREATINE KINASE Stat LAB 10/09/20 13:32 Completed Sodium Chloride 0.9% [Sodium Chloride] 500 ml MEDS 10/09/20 14:16 Discontinued IV BOLUS Medications Discontinued Medications Generic Name Dose Route Start Last Admin Trade Name Freq PRN Reason Stop Dose Admin Sodium Chloride 500 mls @ 500 mls/hr 10/09/20 14:16 10/09/20 15:02 Sodium Chloride IV 10/09/20 15:15 200 mls/hr BOLUS STA Administration Vital Signs: Temp Pulse Resp BP Pulse Ox 10/09/20 13:05 96.4 F L 57 L 20 108/55 L 92 L Discharge Plan Discharge Patient Disposition: PLACED OBSERVATION Discharge Problem: TATO (acute kidney injury) Prescriptions: No Action clonazepam [Klonopin] 0.5 MG tablet 0.5 mg PO BID RF: 0 citalopram 20 MG tablet 20 mg PO DAILY RF: 0 levothyroxine [Synthroid] 50 MCG tablet 75 mcg PO QDAC RF: 0 montelukast [Singulair] 10 MG tablet 10 mg PO BEDTIME RF: 0 tramadol 50 MG tablet 50 mg PO TID PRN (Reason: Mild Pain) RF: 0 pravastatin [Pravachol] 80 MG tablet 80 mg PO DAILY RF: 0 metoprolol succinate [Toprol XL] 50 MG tablet extended release 24 hr 50 mg PO DAILY RF: 0 furosemide 40 mg tablet 40 mg PO DAILY RF: 0 metolazone 2.5 mg Tablet 2.5 mg PO MOWEFR RF: 0 oxybutynin chloride 5 mg Tablet 5 mg PO DAILY RF: 0 Niferex (Sumalate-Quatrefolic) 150 mg iron- 60 mg-1 mg Tablet 1 tab PO DAILY Qty: 30 RF: 2 potassium chloride 20 mEq Tablet Extended Release 20 meq PO DAILY Qty: 30 RF: 0 allopurinol 100 MG tablet 100 mg PO DAILY RF: 0 pantoprazole 40 MG tablet,delayed release (DR/EC) 40 mg PO BID RF: 0 enalapril maleate 5 MG tablet 5 mg PO DAILY RF: 0 sucralfate [Carafate] 1 GM/10 ML suspension 1 g PO ACHS Qty: 1200 RF: 0 ED Provider: KAYLAH BENSON Condition: Fair Physician Progress Note: 85 year old female with acute dehydration and TATO present for gentle re-hydrati on. Rechecked labs with BUN/CR still elevated. Discussed with Dr. Barnes, will admit as observation overnight for gentle rehydration.
[2020-10-09] MEDS: SODIUM CHLORIDE 1,000 ML IV SCH (18:16)
[2020-10-09 18:28] VITALS: BMI 34.4
[2020-10-09] MEDS ORDERED: VISTARIL INJ IM PRN (18:41)
[2020-10-09] MEDS ORDERED: TYLENOL PO PRN (18:41)
[2020-10-09] MEDS ORDERED: ATROPINE SULFATE PFS IVP PRN (18:41)
[2020-10-09] MEDS ORDERED: NITROSTAT SL PRN (18:41)
[2020-10-09] MEDS ORDERED: ULTRAM PO PRN (19:26)
[2020-10-09] MEDS ORDERED: ZAROXOLYN PO SCH (19:30)
--- NOTE | 2020-10-09 19:44 | DI ---
EXAM: Single view of the chest. History: Short of breath Comparison: Chest radiograph 09/21/2020 Findings: Heart size is borderline enlarged. Question subtle bilateral lung infiltrates. No apprec iable pleural fluid and no pneumothorax. No acute osseous abnormalities. Impression: Question subtle bilateral lung infiltrates
[2020-10-09] MEDS: PROTONIX PO SCH (20:17)
[2020-10-09] MEDS: CARAFATE PO SCH (20:17)
[2020-10-09] MEDS: SINGULAIR PO SCH (20:17)
[2020-10-09] MEDS: KLONOPIN PO SCH (20:17)
[2020-10-10 00:40] LABS: BILIRUBIN,URINE Negative (NEGATIVE); CLARITY,URINE Clear (CLEAR); COLOR,URINE Yellow (YELLOW); GLUCOSE, URINE (UA) Negative (NEGATIVE); KETONES,URINE Negative (NEGATIVE); LEUKOCYTE ESTERASE ,URINE Negative (NEGATIVE); NITRITE,URINE Negative (NEGATIVE); PH,URINE 5.5 (5-9); PROTEIN,URINE Negative (NEGATIVE); URINE, BLOOD Negative (NEGATIVE); UROBILINOGEN,URINE 0.2 (0.2)
[2020-10-10] MEDS: LASIX TAB PO SCH ×2 (06:12→08:27)
[2020-10-10] MEDS: SYNTHROID PO SCH (06:12)
[2020-10-10] MEDS: SODIUM CHLORIDE 1,000 ML IV SCH ×2 (06:13→19:43)
[2020-10-10] MEDS: CARAFATE PO SCH ×4 (06:13→20:52)
[2020-10-10 06:18] LABS: BASOPHILS % (AUTO) 0.7 % (0.0-3.0); EOSINOPHILS # (AUTO) 0.1 K/ul (0.0-0.7); EOSINOPHILS % (AUTO) 2.8 % (0.0-7.0); HEMATOCRIT 29.5 % (37.0-47.0); HEMOGLOBIN 9.3 g/dl (12.0-16.0); IMMATURE GRANULOCYTE % (AUTO) 0.5 % (0.0-5.0); LYMPHOCYTES # (AUTO) 1.4 K/uL (0.60-3.4); LYMPHOCYTES % (AUTO) 33.3 (10.0-50.0); MEAN CORPUSCULAR HEMOGLOBIN 30.5 pg (27.0-31.0); MEAN CORPUSCULAR HGB CONC 31.5 (31.8-35.4); MEAN CORPUSCULAR VOLUME 96.7 fl (81.0-99.0); MONOCYTES # (AUTO) 0.4 K/uL (0.4-2.0); MONOCYTES % (AUTO) 8.3 (0-10); NEUTROPHILS # (AUTO) 2.3 K/ul (2.0-6.9); NEUTROPHILS % (AUTO) 54.4 % (42.2-75.2); PLATELET COUNT 217 10^3/uL (140-440); RDW COEFFICIENT OF VARIATION 14.8 % (11.6-14.8); RED BLOOD COUNT 3.05 10^6/ul (4.20-5.40); WHITE BLOOD COUNT 4.23 K/ul (4.6-10.2)
[2020-10-10 06:23] LABS: CREATINE KINASE 76.7 U/L (30-135)
[2020-10-10 06:29] LABS: ALANINE AMINOTRANSFERASE 13.6 U/L (0-35); ALBUMIN 3.39 g/dL (3.5-5.0); ALKALINE PHOSPHATASE 59.3 U/L (53-141); ASPARTATE AMINO TRANSFERASE 25.7 U/L (14-36); BILIRUBIN,TOTAL 0.39 mg/dL (0.2-1.3); BLOOD UREA NITROGEN 50.1 mg/dL (7-17); CALCIUM 8.73 mg/dL (8.4-10.2); CARBON DIOXIDE 25.7 mmol/L (22-30.0); CREATININE 2.02 mg/dL (0.60-1.30); GLUCOSE 98.4 mg/dL (74-106); TOTAL PROTEIN 6.55 g/dL (6.3-8.2)
[2020-10-10 06:36] LABS: TROPONIN I < 0.012 ng/ml (0.0000-0.120)
[2020-10-10 06:41] LABS: CHLORIDE 108.3 mmol/L (98-107); POTASSIUM 4.32 mmol/L (3.5-5.1)
[2020-10-10] MEDS: KLONOPIN PO SCH ×2 (08:04→20:52)
[2020-10-10] MEDS: DITROPAN PO SCH (08:05)
[2020-10-10] MEDS: K-DUR PO SCH (08:05)
[2020-10-10] MEDS: TOPROL XL PO SCH (08:05)
[2020-10-10] MEDS: ZYLOPRIM PO SCH (08:05)
[2020-10-10] MEDS: VASOTEC PO SCH (08:05)
[2020-10-10] MEDS: NIFEREX 150 PO SCH (08:05)
[2020-10-10] MEDS: ASPIRIN EC PO SCH (08:05)
[2020-10-10] MEDS: PRAVACHOL PO SCH (08:05)
[2020-10-10] MEDS: PROTONIX PO SCH ×2 (08:06→20:52)
[2020-10-10] MEDS: CELEXA PO SCH (08:06)
[2020-10-10] MEDS: SINGULAIR PO SCH (20:52)
[2020-10-11 05:34] LABS: BASOPHILS % (AUTO) 0.8 % (0.0-3.0); EOSINOPHILS # (AUTO) 0.1 K/ul (0.0-0.7); EOSINOPHILS % (AUTO) 2.4 % (0.0-7.0); HEMATOCRIT 28.8 % (37.0-47.0); HEMOGLOBIN 9.1 g/dl (12.0-16.0); IMMATURE GRANULOCYTE % (AUTO) 0.6 % (0.0-5.0); LYMPHOCYTES # (AUTO) 1.2 K/uL (0.60-3.4); LYMPHOCYTES % (AUTO) 23.2 (10.0-50.0); MEAN CORPUSCULAR HEMOGLOBIN 31.1 pg (27.0-31.0); MEAN CORPUSCULAR HGB CONC 31.6 (31.8-35.4); MEAN CORPUSCULAR VOLUME 98.3 fl (81.0-99.0); MONOCYTES # (AUTO) 0.5 K/uL (0.4-2.0); MONOCYTES % (AUTO) 9.3 (0-10); NEUTROPHILS # (AUTO) 3.2 K/ul (2.0-6.9); NEUTROPHILS % (AUTO) 63.7 % (42.2-75.2); PLATELET COUNT 221 10^3/uL (140-440); RDW COEFFICIENT OF VARIATION 14.7 % (11.6-14.8); RED BLOOD COUNT 2.93 10^6/ul (4.20-5.40); WHITE BLOOD COUNT 4.95 K/ul (4.6-10.2)
[2020-10-11] MEDS: SYNTHROID PO SCH (05:45)
[2020-10-11 05:46] LABS: ALANINE AMINOTRANSFERASE 12.7 U/L (0-35); ALBUMIN 3.24 g/dL (3.5-5.0); ALKALINE PHOSPHATASE 69.9 U/L (53-141); ASPARTATE AMINO TRANSFERASE 20.8 U/L (14-36); BILIRUBIN,TOTAL 0.27 mg/dL (0.2-1.3); BLOOD UREA NITROGEN 40.7 mg/dL (7-17); CALCIUM 8.9 mg/dL (8.4-10.2); CARBON DIOXIDE 23.2 mmol/L (22-30.0); CHLORIDE 111.4 mmol/L (98-107); CREATININE 1.54 mg/dL (0.60-1.30); GLUCOSE 113.5 mg/dL (74-106); POTASSIUM 4.51 mmol/L (3.5-5.1); SODIUM 139.5 mmol/L (134.5-145); TOTAL PROTEIN 6.31 g/dL (6.3-8.2)
[2020-10-11] MEDS: CARAFATE PO SCH ×4 (05:46→20:07)
[2020-10-11] MEDS: TOPROL XL PO SCH (08:44)
[2020-10-11] MEDS: ASPIRIN EC PO SCH (08:44)
[2020-10-11] MEDS: CELEXA PO SCH (08:44)
[2020-10-11] MEDS: PRAVACHOL PO SCH (08:44)
[2020-10-11] MEDS: ZYLOPRIM PO SCH (08:44)
[2020-10-11] MEDS: K-DUR PO SCH (08:44)
[2020-10-11] MEDS: NIFEREX 150 PO SCH (08:44)
[2020-10-11] MEDS: DITROPAN PO SCH (08:44)
[2020-10-11] MEDS: VASOTEC PO SCH (08:45)
[2020-10-11] MEDS: LASIX TAB PO SCH (08:45)
[2020-10-11] MEDS: KLONOPIN PO SCH ×2 (08:45→20:06)
[2020-10-11] MEDS: SODIUM CHLORIDE 1,000 ML IV SCH (08:45)
[2020-10-11] MEDS: PROTONIX PO SCH ×2 (08:45→20:07)
[2020-10-11] MEDS: SINGULAIR PO SCH (20:06)
[2020-10-12 05:15] LABS: BASOPHILS % (AUTO) 0.6 % (0.0-3.0); EOSINOPHILS # (AUTO) 0.1 K/ul (0.0-0.7); EOSINOPHILS % (AUTO) 2.5 % (0.0-7.0); HEMATOCRIT 25.8 % (37.0-47.0); HEMOGLOBIN 8.3 g/dl (12.0-16.0); IMMATURE GRANULOCYTE % (AUTO) 0.4 % (0.0-5.0); LYMPHOCYTES # (AUTO) 1.2 K/uL (0.60-3.4); LYMPHOCYTES % (AUTO) 23.4 (10.0-50.0); MEAN CORPUSCULAR HEMOGLOBIN 31.2 pg (27.0-31.0); MEAN CORPUSCULAR HGB CONC 32.2 (31.8-35.4); MONOCYTES # (AUTO) 0.4 K/uL (0.4-2.0); MONOCYTES % (AUTO) 8.3 (0-10); NEUTROPHILS # (AUTO) 3.3 K/ul (2.0-6.9); NEUTROPHILS % (AUTO) 64.8 % (42.2-75.2); PLATELET COUNT 181 10^3/uL (140-440); RDW COEFFICIENT OF VARIATION 14.7 % (11.6-14.8); RED BLOOD COUNT 2.66 10^6/ul (4.20-5.40); WHITE BLOOD COUNT 5.16 K/ul (4.6-10.2)
[2020-10-12 05:28] LABS: ALANINE AMINOTRANSFERASE 10.7 U/L (0-35); ALBUMIN 2.78 g/dL (3.5-5.0); ALKALINE PHOSPHATASE 55.1 U/L (53-141); ASPARTATE AMINO TRANSFERASE 17.7 U/L (14-36); BILIRUBIN,TOTAL 0.24 mg/dL (0.2-1.3); CALCIUM 7.84 mg/dL (8.4-10.2); CARBON DIOXIDE 21.8 mmol/L (22-30.0); CHLORIDE 114.6 mmol/L (98-107); CREATININE 1.48 mg/dL (0.60-1.30); GLUCOSE 85.6 mg/dL (74-106); POTASSIUM 3.75 mmol/L (3.5-5.1); SODIUM 140.3 mmol/L (134.5-145); TOTAL PROTEIN 5.69 g/dL (6.3-8.2)
[2020-10-12] MEDS: SYNTHROID PO SCH (05:30)
[2020-10-12] MEDS: CARAFATE PO SCH ×4 (05:30→20:13)
[2020-10-12] MEDS: SODIUM CHLORIDE 1,000 ML IV SCH ×3 (08:44→21:05)
[2020-10-12] MEDS: VASOTEC PO SCH (08:45)
[2020-10-12] MEDS: KLONOPIN PO SCH ×2 (08:45→20:13)
[2020-10-12] MEDS: TOPROL XL PO SCH (08:46)
[2020-10-12] MEDS: ASPIRIN EC PO SCH (08:46)
[2020-10-12] MEDS: LASIX TAB PO SCH (08:46)
[2020-10-12] MEDS: DITROPAN PO SCH (08:46)
[2020-10-12] MEDS: K-DUR PO SCH (08:46)
[2020-10-12] MEDS: PRAVACHOL PO SCH (08:46)
[2020-10-12] MEDS: CELEXA PO SCH (08:47)
[2020-10-12] MEDS: NIFEREX 150 PO SCH (08:47)
[2020-10-12] MEDS: PROTONIX PO SCH ×2 (08:47→16:56)
[2020-10-12] MEDS: ZYLOPRIM PO SCH (08:47)
[2020-10-12] MEDS ORDERED: ZAROXOLYN PO SCH (09:00)
--- NOTE | 2020-10-12 09:04 | PCM.PROG ---
Attending Provider: ATTENDING PROVIDER: Dr. APOLINAR BARNES This patient is seen with Liana Solis, Nurse Practitioner. DATE OF SERVICE: 10/12/20 SUBJECTIVE: This 85 year old /WHITE F was hospitalized 10/09/20. The patient is resting comfortably. Kidney function steadily improving. Hgb has dropped likely from hemodilution. She is eating well. REVIEW OF SYSTEMS: CONSTITUTIONAL: No night sweats. No fatigue, malaise, lethargy. No fever or chills. Weakness. HEENT: Eyes: No visual changes. No eye pain. No eye discharge. ENT: No runny nose. No epistaxis. No sinus pain. No odynophagia. No congestion. RESPIRATORY: No cough, no congestion. No hemoptysis. No shortness of breath. CARDIOVASCULAR: No angina symptoms. No CHF symptoms. No atypical chest pain for CAD. No palpitations. No orthopnea.. GASTROINTESTINAL: No abdominal pain. No nausea or vomiting. No diarrhea or constipation. No hematemesis. No hematochezia. GENITOURINARY: No urgency. No frequency. No dysuria. No hematuria. No obstructive symptoms. No discharge. No pain. No significant abnormal bleeding. MUSCULOSKELETAL: No musculoskeletal pain; no joint swelling. Leg edema. NEUROLOGICAL: Awake, alert, oriented to time, place and person. No headache. No neck pain. No syncope. No seizures. No dizziness. PSYCHIATRIC: Not anxious. No depression. No suicidal thoughts. No homicidal thoughts. SKIN: No rash. No lesions. No wounds. ENDOCRINE: No unexplained weight loss. No weight gain. HEMATOLOGIC/LYMPHATIC: No anemia. No purpura. No petechiae. No prolonged or excessive bleeding. No palpable lymph nodes. PHYSICAL EXAMINATION: GENERAL: The patient is awake, alert and oriented, lying in bed in no distress. VITAL SIGNS: Temperature 98.1 F, Pulse 56, Respiratory Rate 16, BP 117/58, Pulse Ox 100% HEENT: Head normocephalic, atraumatic. Eyes: Extraocular muscles are intact. Pupils are equal, round and reactive to light and accommodation. Ears: No lesions. Nose appeared normal. Throat: No exudate or erythema. NECK: Supple. No JVD, no carotid bruit. No lymphadenopathy or thyromegaly. LUNGS: Diminished breath sounds. Clear to auscultation. Percussion note normal. Chest symmetrical. HEART: S1, S2, no S3. No murmurs. No cyanosis or clubbing. No ascites. Puls es: Dorsalis pedis and posterior tibial pulses +1 to +2 both sides. ABDOMEN: Soft. Non-tender. Bowel sounds active. No CVA tenderness. No mass felt. EXTREMITIES: +1 bilateral leg edema. Full range of motion of all extremities, equal. NEUROLOGIC: No focal deficit. Cranial nerves II through XII are grossly intact. No headache, no double vision or headache. SKIN: Not dry. Intact. Turgor-normal. LYMPHATIC: No palpable lymph nodes/no lymphedema. MUSCULOSKELETAL: Normal joints with no swelling. Muscle tone is normal. LAB REVIEW: 10/12/20 04:44 10/12/20 04:44 10/12/20 04:44: Sodium 140.3, Potassium 3.75, Chloride 114.6 H, Carbon Dioxide 2 1.8 L, Anion Gap 7.65, BUN 31.0 H, Creatinine 1.48 H, Estimated GFR (MDRD) 34.00, BUN/Creatinine Ratio 20.94, Glucose 85.6, Calcium 7.84 L, Total Bilirubin 0.24, AST 17.7, ALT 10.7, Alkaline Phosphatase 55.1, Total Protein 5.69 L, Albumin 2.78 L, Globulin 2.91, Albumin/Globulin Ratio 0.95 10/12/20 04:44: WBC 5.16, RBC 2.66 L, Hgb 8.3 L, Hct 25.8 L, MCV 97.0, MCH 31.2 H, MCHC 32.2, RDW Coeff of Michael 14.7, Plt Count 181, Immature Gran % (Auto) 0.4, Neut % (Auto) 64.8, Lymph % (Auto) 23.4, Potter % (Auto) 8.3, Eos % (Auto) 2.5, Baso % (Auto) 0.6, Neut # (Auto) 3.3, Lymph # (Auto) 1.2, Potter # (Auto) 0.4, Eos # (Auto) 0.1, Baso # (Auto) 0.0, Immature Gran # (Auto) 0.0 ASSESSMENT: Please see below. 1. Acute renal failure 2. Anemia 3. Chronic leg edema 4. Noncompliance PLAN: 1. Continue IV fluids 2. Hold Zaroxolyn Plan and coordination of the patient's care discussed in the presence of Assistant Media Buyer and nurse. SCRIBED BY: Gail [facility] scribed while in presence of service performed by Dr. Barnes/Liana Solis APRN on 10/12/20 ([id number])
--- NOTE | 2020-10-12 11:09 | PN ---
DATE OF SERVICE: 10/09/2020 SUBJECTIVE: The patient was seen and examined by the ER attending and was hospitalized. Creatinine was 3.1 with BUN of 45 done as an outpatient on followup. Abnormal creatinine and BUN noted weeks ago. The patient's previous creatinine was 1.7 with BUN 35 and deteriorated. The patient lives by herself likely the patient has been dehydrated. The patient is being taken care of by the daughter. She does the best she can. In the emergency room the patient was given 1000cc of 5W. Creatinine and BUN improved to some extent. The patient stays into renal failure range the patient has been hospitalized for treatment of acute renal failure and rest of the blood test and findings are negative. She is will be hospitalized with telemetry orders. Her cardiovascular status is stable. The patient is DNR. The patient's other problems are coronary artery disease, morbid obesity, hypertension, dyslipidemia and dementia and noncompliance of followup, medications likely from dementia. She has declined to go to Assisted Living or [facility]. PROGNOSIS: guarded. TIME SPENT: More than 30 minutes. Plan and coordination of the patient's care discussed in the presence of nurse. DESIRE
[2020-10-12] MEDS: SINGULAIR PO SCH (20:13)
[2020-10-13 05:33] LABS: BASOPHILS % (AUTO) 0.5 % (0.0-3.0); EOSINOPHILS # (AUTO) 0.1 K/ul (0.0-0.7); EOSINOPHILS % (AUTO) 2.5 % (0.0-7.0); HEMOGLOBIN 8.7 g/dl (12.0-16.0); IMMATURE GRANULOCYTE % (AUTO) 0.5 % (0.0-5.0); LYMPHOCYTES # (AUTO) 1.2 K/uL (0.60-3.4); LYMPHOCYTES % (AUTO) 21.9 (10.0-50.0); MEAN CORPUSCULAR HEMOGLOBIN 30.7 pg (27.0-31.0); MEAN CORPUSCULAR HGB CONC 31.1 (31.8-35.4); MEAN CORPUSCULAR VOLUME 98.9 fl (81.0-99.0); MONOCYTES # (AUTO) 0.4 K/uL (0.4-2.0); MONOCYTES % (AUTO) 6.8 (0-10); NEUTROPHILS # (AUTO) 3.8 K/ul (2.0-6.9); NEUTROPHILS % (AUTO) 67.8 % (42.2-75.2); PLATELET COUNT 200 10^3/uL (140-440); RDW COEFFICIENT OF VARIATION 14.6 % (11.6-14.8); RED BLOOD COUNT 2.83 10^6/ul (4.20-5.40); WHITE BLOOD COUNT 5.58 K/ul (4.6-10.2)
[2020-10-13 05:39] VITALS: BP 105/59; TEMP 98.4
[2020-10-13] MEDS: PROTONIX PO SCH (05:40)
[2020-10-13] MEDS: LASIX TAB PO SCH (05:40)
[2020-10-13] MEDS: CARAFATE PO SCH ×2 (05:40→11:47)
[2020-10-13 05:45] LABS: ALBUMIN 3.28 g/dL (3.5-5.0); ALKALINE PHOSPHATASE 56.6 U/L (53-141); ASPARTATE AMINO TRANSFERASE 19.9 U/L (14-36); BILIRUBIN,TOTAL 0.37 mg/dL (0.2-1.3); BLOOD UREA NITROGEN 31.9 mg/dL (7-17); CALCIUM 9.04 mg/dL (8.4-10.2); CARBON DIOXIDE 23.5 mmol/L (22-30.0); CHLORIDE 109.2 mmol/L (98-107); CREATININE 1.4 mg/dL (0.60-1.30); GLUCOSE 133.8 mg/dL (74-106); POTASSIUM 3.91 mmol/L (3.5-5.1); SODIUM 137.4 mmol/L (134.5-145); TOTAL PROTEIN 6.3 g/dL (6.3-8.2)
[2020-10-13] MEDS: SODIUM CHLORIDE 1,000 ML IV SCH (06:11)
[2020-10-13] MEDS ORDERED: SYNTHROID PO SCH (06:30)
[2020-10-13] MEDS: VASOTEC PO SCH (08:26)
[2020-10-13] MEDS: CELEXA PO SCH (08:26)
[2020-10-13] MEDS: KLONOPIN PO SCH (08:27)
[2020-10-13] MEDS: DITROPAN PO SCH (08:27)
[2020-10-13] MEDS: PRAVACHOL PO SCH (08:27)
[2020-10-13] MEDS: TOPROL XL PO SCH (08:27)
[2020-10-13] MEDS: ZYLOPRIM PO SCH (08:27)
[2020-10-13] MEDS: K-DUR PO SCH (08:27)
[2020-10-13] MEDS: NIFEREX 150 PO SCH (08:27)
--- NOTE | 2020-10-13 08:27 | HP ---
DATE OF SERVICE: 10/09/20 REASON FOR HOSPITALIZATION: Acute renal failure. HISTORY OF PRESENT ILLNESS: 85-year-old white female with labs done as an outpatient which showed creatinine of 3.1 with BUN of 50. She was in acute renal failure. Previous creatinine was 1.7. The patient lives by herself. There is no way there was any improvement. Instructions given to the daughter who lives nearby so the patient was advised to go to the emergency room. In fact, the daughter was advised, showed up in the emergency room and was hospitalized after initial investigation which showed acute renal failure. PAST MEDICAL HISTORY: History of coronary artery disease Morbid obesity Depression Dementia Hypothyroidism Hypertension Dyslipidemia Reflux disease Note: The patient for the past several years has declined to have any colonoscopy or EGD done for her anemia workup. REVIEW OF SYSTEMS: (On admission, the patient is confused, unable to give full review of systems which could be believable) CONSTITUTIONAL: Exertional fatigue and weakness. No night sweats. No malaise, lethargy. No fever or chills. HEENT: Eyes: No visual changes. No eye pain. No eye discharge. ENT: No runny nose. No epistaxis. No sinus pain. No sore throat. No odynophagia. No ear pain. No congestion. RESPIRATORY: No cough, no congestion. No hemoptysis. CARDIOVASCULAR: No angina symptoms. No CHF symptoms. No atypical chest pain for CAD. No palpitations. No PND. No orthopnea. No shortness of breath. GASTROINTESTINAL: Appetite is poor. We don't know if she is vomiting, eating or not. GENITOURINARY: No urgency. No frequency. No dysuria. No hematuria. No obstructive symptoms. No discharge. No pain. No significant abnormal bleeding. MUSCULOSKELETAL: No musculoskeletal pain. No joint swelling. No arthritis. NEUROLOGICAL: Mental Status: Confused, sleepy. PSYCHIATRIC: Not anxious. No depression. No suicidal thoughts. No homicidal thoughts. SKIN: No rash. No lesions. No wounds. ENDOCRINE: No unexplained weight loss. No weight gain. HEMATOLOGIC/LYMPHATIC: No anemia. No purpura. No petechiae. No prolonged or excessive bleeding. No palpable lymph nodes. PERSONAL/FAMILY/SOCIAL HISTORY: The patient lives by herself, nonsmoker. No alcohol abuse. She tries to do all activities of daily living. The daughter is helping her with daily ADLs and brings food once a day. She takes care of her medication as best as she can. MEDICATIONS: Citalopram Klonopin Synthroid Singulair Tramadol Pravastatin Allopurinol Pantoprazole Metoprolol Enalapril Carafate Furosemide Metolazone Oxybutinin Potassium ALLERGIES: HYDROCODONE, MEPERIDINE HCI, LYRICA PHYSICAL EXAMINATION: GENERAL: The patient is drowsy. VITAL SIGNS: Temperature 98.6, pulse 70, respiratory rate 15, blood pressure 110/70, pulse ox 99% on room air. HEENT: Head normocephalic, atraumatic. Eyes: Extraocular muscles are intact. Pupils are equal, round and reactive to light and accommodation. Ears: No lesions. Nose appeared normal. Throat: No exudate or erythema. NECK: Supple. No JVD, no carotid bruit. No lymphadenopathy or thyromegaly. LUNGS: Clear to auscultation. Percussion note normal. Chest symmetrical. HEART: S1, S2, no S3. No murmur. No cyanosis or clubbing. No ascites. Pulses: Dorsalis pedis and posterior tibial pulses +1 to +2 bilaterally. ABDOMEN: Soft. Nontender. Bowel sounds active. No CVA tenderness. No mass felt. EXTREMITIES: No edema. Full range of motion of all extremities, equal. NEUROLOGIC: The patient is confused, moving all extremities. No focal deficit. Cranial nerves II through XII are grossly intact. No headache, no double vision or headache. SKIN: Dry. Mucous membranes dry. Intact. Turgor - normal. LYMPHATIC: No palpable lymph nodes/no lymphedema. MUSCULOSKELETAL: Normal joints with no swelling. Muscle tone is normal. LABS: On admission the patient's creatinine was 2.7 with BUN 45. ABGs were practically unremarkable, was negative. The patient has anemia. Chest x-ray was unremarkable. ASSESSMENT: 1. Acute renal failure with dehydration likely because of the patient's ability to cook or take care of herself and with dementia. 2. Dementia which seems to be worsening. 3. Coronary artery disease. 4. Morbid obesity. 5. Osteoarthritis. 6. Depression. 7. Hypothyroidism. 8. Hyperlipidemia. 9. Hypertension. PLAN: 1. Continue all the medications including home medications. 2. IV fluids 75 cc/hr. The patient was given 1,000 cc bag within 3 to 4 bags in the emergency room. 3. Routine telemetry orders which would include serial cardiac markers, EKGs, rule out IN or ischemia. 4. Will do neurochecks. There is no neurological deficit. 5. The patient's main problem is dehydration with acute renal failure. 6. Will watch the patient for fluid overload. 7. Will monitor CBC and CMP daily. Condition seems to be stable. Prognosis long-term poor. Daughter was explained about the findings and advise patient to go to the [place] [facility] or assisted living. Would consider both. At the present time with Covid flying around she is afraid to put her in either place. TIME SPENT: More than 70 minutes. DESIRE
--- NOTE | 2020-10-13 08:55 | PN ---
DATE OF SERVICE: 10/10/20 SUBJECTIVE: The patient is an 85-year-old white female hospitalized with acute renal failure. The patient is dehydrated. The patient lives by herself, problems with drinking any fluids. She eats by whatever is brought by the daughter, who lives nearby. In any case, the patient is somewhat confused and sleepy. REVIEW OF SYSTEMS: CONSTITUTIONAL: No night sweats. No fatigue, malaise, lethargy. No fever or chills. HEENT: Eyes: No visual changes. No eye pain. No eye discharge. ENT: No runny nose. No epistaxis. No sinus pain. No sore throat. No odynophagia. No congestion. RESPIRATORY: No cough, no congestion. No hemoptysis. No shortness of breath. CARDIOVASCULAR: No angina symptoms. No CHF symptoms. No atypical chest pain for CAD. No palpitations. No PND. No orthopnea. GASTROINTESTINAL: No abdominal pain. No nausea or vomiting. No diarrhea or constipation. No hematemesis. No hematochezia. GENITOURINARY: No urgency. No frequency. No dysuria. No hematuria. No obstructive symptoms. No discharge. No pain. No significant abnormal bleeding. MUSCULOSKELETAL: No musculoskeletal pain; no joint swelling. NEUROLOGICAL: No headache. No neck pain. No syncope. No seizures. No dizziness. PSYCHIATRIC: Not anxious. No depression. No suicidal thoughts. No homicidal thoughts. SKIN: No rash. No lesions. No wounds. ENDOCRINE: No unexplained weight loss. No weight gain. HEMATOLOGIC/LYMPHATIC: No anemia. No purpura. No petechiae. No prolonged or excessive bleeding. No palpable lymph nodes. PHYSICAL EXAMINATION: GENERAL: The patient is confused. VITAL SIGNS: Temperature 98.4, pulse 60, respiratory rate 16, blood pressure 110/60, pulse ox 97% on room air. HEENT: Head normocephalic, atraumatic. Eyes: Extraocular muscles are intact. Pupils are equal, round and reactive to light and accommodation. Ears: No lesions. Nose appeared normal. Throat: No exudate or erythema. NECK: Supple. No JVD, no carotid bruit. No lymphadenopathy or thyromegaly. LUNGS: Decreased breath sounds but clear to auscultation. Percussion note normal. Chest symmetrical. HEART: S1, S2, no S3. No murmurs. No cyanosis or clubbing. No ascites. Pulses: Dorsalis pedis and posterior tibial pulses +1 to +2 bilaterally. ABDOMEN: Soft. Nontender. Bowel sounds active. No CVA tenderness. No mass felt. EXTREMITIES: No edema. Full range of motion of all extremities, equal. NEUROLOGIC: No focal deficit. Cranial nerves II through XII are grossly intact. No headache, no double vision or headache. SKIN: Dry. Mucous membrane dry. Intact. Turgor - normal. LYMPHATIC: No palpable lymph nodes/no lymphedema. MUSCULOSKELETAL: Normal joints with no swelling. Muscle tone is normal. LABS: Hemoglobin 9.3, hematocrit 29, WBC 4,200, normal differential. Creatinine 2, BUN 50, potassium 4.3, glucose 98. CK-MB negative. ASSESSMENT: 1. Renal failure seems to be resolving. The patient's creatinine was 3.1 with BUN of 55, seems to be much better. 2. The patient's leg edema is under control with +1 pitting edema. 3. CHF noted, no fluid overload. No coronary insufficiency. 4. Dementia which seems to be worsening. Problem she is living by herself and she has dementia. She is not able to take care of herself. Daughter tries to help. She is stubborn, she had declined any colonoscopy in the past. TIME SPENT: More than 30 minutes. Plan and coordination of the patient's care discussed in the presence of nurse. DESIRE
--- NOTE | 2020-10-13 09:01 | PN ---
DATE OF SERVICE: 10/11/20 SUBJECTIVE: 85-year-old white female hospitalized with acute renal failure. The patient's overall status has improved. She is feeling better. She is sitting up and talking. She is oriented to place, not to the person, didn't recognize me. Appetite has improved. Creatinine which was 3.1 with BUN of 50 is now 1.54 respectively. REVIEW OF SYSTEMS: CONSTITUTIONAL: No night sweats. No fatigue, malaise, lethargy. No fever or chills. HEENT: Eyes: No visual changes. No eye pain. No eye discharge. ENT: No runny nose. No epistaxis. No sinus pain. No sore throat. No odynophagia. No congestion. RESPIRATORY: No cough, no congestion. No hemoptysis. No shortness of breath. CARDIOVASCULAR: No angina symptoms. No CHF symptoms. No atypical chest pain for CAD. No palpitations. No PND. No orthopnea. GASTROINTESTINAL: No abdominal pain. No nausea or vomiting. No diarrhea or constipation. No hematemesis. No hematochezia. GENITOURINARY: No urgency. No frequency. No dysuria. No hematuria. No obstructive symptoms. No discharge. No pain. No significant abnormal bleeding. MUSCULOSKELETAL: No musculoskeletal pain; no joint swelling. NEUROLOGICAL: No headache. No neck pain. No syncope. No seizures. No dizziness. PSYCHIATRIC: Not anxious. No depression. No suicidal thoughts. No homicidal thoughts. SKIN: No rash. No lesions. No wounds. ENDOCRINE: No unexplained weight loss. No weight gain. HEMATOLOGIC/LYMPHATIC: No anemia. No purpura. No petechiae. No prolonged or excessive bleeding. No palpable lymph nodes. PHYSICAL EXAMINATION: VITAL SIGNS: Temperature 98, pulse 59, respiratory rate 16, BP 193/48, pulse ox 100%. HEENT: Head normocephalic, atraumatic. Eyes: Extraocular muscles are intact. Pupils are equal, round and reactive to light and accommodation. Ears: No lesions. Nose appeared normal. Throat: No exudate or erythema. NECK: Supple. No JVD, no carotid bruit. No lymphadenopathy or thyromegaly. LUNGS: Decreased breath sounds but clear to auscultation. Percussion note normal. Chest symmetrical. HEART: S1, S2, no S3. No murmurs. No cyanosis or clubbing. No ascites. Pulses: Dorsalis pedis and posterior tibial pulses +1 to +2 bilaterally. ABDOMEN: Soft. Nontender. Bowel sounds active. No CVA tenderness. No mass felt. EXTREMITIES: No edema. Full range of motion of all extremities, equal. NEUROLOGIC: No focal deficit. Cranial nerves II through XII are grossly intact. No headache, no double vision or headache. SKIN: Not dry. Intact. Turgor - normal. LYMPHATIC: No palpable lymph nodes/no lymphedema. MUSCULOSKELETAL: Normal joints with no swelling. Muscle tone is normal. ASSESSMENT: 1. Acute renal failure resolving. PLAN: 1. Continue IV fluids. 2. Continue to encourage the patient to eat. 3. Continue Zaroxolyn. 4. Elevate the legs. 5. CBC, CMP. Condition is stable. The patient's problem is that she is living by herself and not being able to take care of herself and take medication on a regular basis. The daughter who lives here is trying to help but the help doesn't seem to be enough. TIME SPENT: More than 30 minutes. Plan and coordination of the patient's care discussed in the presence of nurse. DESIRE
--- NOTE | 2020-10-13 09:16 | PCM.PROG ---
Attending Provider: ATTENDING PROVIDER: Dr. APOLINAR BARNES This patient is seen with Liana Solis, Nurse Practitioner. DATE OF SERVICE: 10/13/20 SUBJECTIVE: This 85 year old /WHITE F was hospitalized 10/09/20. The patient is resting comfortably. She has been up and about. Kidney function significantly improved. The patient is ready to go home. Reviewed medications and instructed her to drink plenty of fluids. Keep legs elevated. REVIEW OF SYSTEMS: CONSTITUTIONAL: No night sweats. No fatigue, malaise, lethargy. No fever or chills. Weakness. HEENT: Eyes: No visual changes. No eye pain. No eye discharge. ENT: No runny nose. No epistaxis. No sinus pain. No odynophagia. No congestion. RESPIRATORY: No cough, no congestion. No hemoptysis. No shortness of breath. CARDIOVASCULAR: No angina symptoms. No CHF symptoms. No atypical chest pain for CAD. No palpitations. No orthopnea.. GASTROINTESTINAL: No abdominal pain. No nausea or vomiting. No diarrhea or constipation. No hematemesis. No hematochezia. GENITOURINARY: No urgency. No frequency. No dysuria. No hematuria. No obstructive symptoms. No discharge. No pain. No significant abnormal bleeding. MUSCULOSKELETAL: No musculoskeletal pain; no joint swelling. Chronic leg edema. NEUROLOGICAL: Awake, alert, oriented to time, place and person. No headache. No neck pain. No syncope. No seizures. No dizziness. PSYCHIATRIC: Not anxious. No depression. No suicidal thoughts. No homicidal thoughts. SKIN: No rash. No lesions. No wounds. ENDOCRINE: No unexplained weight loss. No weight gain. HEMATOLOGIC/LYMPHATIC: No anemia. No purpura. No petechiae. No prolonged or excessive bleeding. No palpable lymph nodes. PHYSICAL EXAMINATION: GENERAL: The patient is awake, alert and oriented, lying in bed in no distress. VITAL SIGNS: Temperature 98.4 F, Pulse 54, Respiratory Rate 16, BP 105/59, Pulse Ox 100% HEENT: Head normocephalic, atraumatic. Eyes: Extraocular muscles are intact. Pupils are equal, round and reactive to light and accommodation. Ears: No lesions. Nose appeared normal. Throat: No exudate or erythema. NECK: Supple. No JVD, no carotid bruit. No lymphadenopathy or thyromegaly. LUNGS: Diminished breath sounds. Clear to auscultation. Percussion note normal. Chest symmetrical. HEART: S1, S2, no S3. No murmurs. No cyanosis or clubbing. No ascites. Pulses: Dorsalis pedis and posterior tibial pulses +1 to +2 both sides. ABDOMEN: Soft. Non-tender. Bowel sounds active. No CVA tenderness. No mass felt. EXTREMITIES: +1 bilateral leg edema. Full range of motion of all extremities, equal. NEUROLOGIC: No focal deficit. Cranial nerves II through XII are grossly intact. No headache, no double vision or headache. SKIN: Not dry. Intact. Turgor-normal. LYMPHATIC: No palpable lymph nodes/no lymphedema. MUSCULOSKELETAL: Normal joints with no swelling. Muscle tone is normal. LAB REVIEW: 10/13/20 04:50 10/13/20 04:50 10/13/20 04:50: Sodium 137.4, Potassium 3.91, Chloride 109.2 H, Carbon Dioxide 23.5, Anion Gap 8.61, BUN 31.9 H, Creatinine 1.40 H, Estimated GFR (MDRD) 36.00, BUN/Creatinine Ratio 22.78, Glucose 133.8 H, Calcium 9.04, Total Bilirubin 0.37, AST 19.9, ALT 11.0, Alkaline Phosphatase 56.6, Total Protein 6.30, Albumin 3.28 L, Globulin 3.02, Albumin/Globulin Ratio 1.08 10/13/20 04:50: WBC 5.58, RBC 2.83 L, Hgb 8.7 L, Hct 28.0 L, MCV 98.9, MCH 30.7, MCHC 31.1 L, RDW Coeff of Michael 14.6, Plt Count 200, Immature Gran % (Auto) 0.5, Neut % (Auto) 67.8, Lymph % (Auto) 21.9, [place] % (Auto) 6.8, Eos % (Auto) 2.5, Baso % (Auto) 0.5, Neut # (Auto) 3.8, Lymph # (Auto) 1.2, [place] # (Auto) 0.4, Eos # (Auto) 0.1, Baso # (Auto) 0.0, Immature Gran # (Auto) 0.0 ASSESSMENT: Please see below. 1. Acute kidney injury 2. Chronic kidney disease stage 3 3. Chronic leg edema PLAN: 1. Encourage fluids 2. No NSAIDS 3. Elevate legs 4. Discharge home 5. Zaroxolyn PRN for leg edema, one to two times per week 6. See her back next week in the office. Plan and coordination of the patient's care discussed in the presence of Advertising Sales Agent and nurse. SCRIBED BY: KEN ACEVES Liquor Store Manager scribed while in presence of service performed by Dr. Barnes/Liana Solis APRN on 10/13/20 ([id number])
--- NOTE | 2020-10-13 10:39 | CM.DICTOOL ---
ADMISSION: 10/09/20 16:52 DISCHARGE: OCTOBER 13, 2020 DATE OF SERVICE: 10/13/20 FINAL DIAGNOSIS ACUTE RENAL FAILURE ANEMIA CHRONIC LEG EDEMA NONCOMPLIANCE HX: URINARY TRACT INFECTION, E-COLI ORGANISM CHRONIC LEG EDEMA ACUTE RENAL FAILURE, IMPROVED CHRONIC KIDNEY DISEASE CONGESTIVE HEART FAILURE GERD CHRONIC ANEMIA COPD (OXYGEN AT HS AND PRN) HYPERTENSION CORONARY ARTERY DISEASE HYPOTHYROIDISM DYSLIPIDEMIA NON-COMPLIANCE MEDS, LIFESTYLE, DIET AND F/U PREVIOUS SMOKER PROCEDURES: PFT 2013 MILD TO MODERATE COPD/RESTRICTIVE LUNG DISEASE ECHOCARDIOGRAM (2019) LVH WITH ENLARGED LEFT ATRIAL CAVITY LVEF 56% NORMAL CONTRACTILITY VALVES NORMAL LVEF 59% E WAVE GREATER THAN A WAVE, DIASTOLIC DYSFUNCTION (MITRAL VALVE DOPPLER) BILATERAL TKR LAST VITALS Temp Pulse Resp BP Pulse Ox 98.4 F 54 L 16 105/59 L 100 10/13/20 05:36 10/13/20 05:36 10/13/20 05:36 10/13/20 05:36 10/13/20 05:36 TAKE THESE MEDICATIONS AT HOME Allopurinol (Allopurinol 100 Mg Tablet) 100 mg PO DAILY [facility] Last Admin: 10/13/20 08:27 Dose: 100 mg Documented by: Citalopram Hydrobromide (Citalopram Hydrobromide 20 Mg Tablet) 20 mg PO DAILY [facility] Last Admin: 10/13/20 08:26 Dose: 20 mg Documented by: Clonazepam (Clonazepam 0.5 Mg Tablet) 0.5 mg PO BID [facility] Last Admin: 10/13/20 08:27 Dose: 0.5 mg Documented by: Enalapril Maleate (Enalapril Maleate 5 Mg Tablet) 5 mg PO DAILY [facility] Last Admin: 10/13/20 08:26 Dose: 5 mg Documented by: Furosemide (Furosemide 40 Mg Tablet) 40 mg PO QDAC [facility] Last Admin: 10/13/20 05:40 Dose: 40 mg Documented by: Levothyroxine Sodium (Levothyroxine Sodium 75 Mcg Tablet) 75 mcg PO QDAC [facility] Last Admin: 10/13/20 05:40 Dose: 75 mcg Documented by: Metoprolol Succinate (Metoprolol Succinate 50 Mg Tab.Er.24h) 50 mg PO DAILY [facility] Last Admin: 10/13/20 08:27 Dose: 50 mg Documented by: Montelukast Sodium (Montelukast Sodium 10 Mg Tablet) 10 mg PO BEDTIME [facility] Last Admin: 10/12/20 20:13 Dose: 10 mg Documented by: Oxybutynin Chloride (Oxybutynin Chloride 5 Mg Tablet) 5 mg PO DAILY [facility] Last Admin: 10/13/20 08:27 Dose: 5 mg Documented by: Pantoprazole Sodium (Pantoprazole Sodium 40 Mg Tablet.Dr) 40 mg PO BIDAC [facility] Last Admin: 10/13/20 05:40 Dose: 40 mg Documented by: Polysaccharide Iron Complex (Iron Polysaccharide Complex 150 Mg Capsule) 150 mg PO DAILYWM [facility] Last Admin: 10/13/20 08:27 Dose: 150 mg Documented by: Potassium Chloride (Potassium Chloride 20 Meq Tab) 20 meq PO DAILYWM [facility] Last Admin: 10/13/20 08:27 Dose: 20 meq Documented by: Pravastatin Sodium (Pravastatin Sodium 40 Mg Tablet) 80 mg PO DAILY [facility] Last Admin: 10/13/20 08:27 Dose: 80 mg Documented by: Sucralfate 1 gm TABLET PO ACHS [facility] Last Admin: 10/13/20 05:40 Dose: 1 gm Documented by: Tramadol HCl (Tramadol Hcl 50 Mg Tablet) 50 mg PO TID PRN PRN Reason: Pain METOLAZONE 2.5 MG PO 1-2 X WEEKLY PRN FOR LEG SWELLING -- ( CHANGED) ALLERGIES hydrocodone [From Lortab] Adverse Reaction (Verified 10/09/20 13:21) meperidine HCl [From Demerol] Adverse Reaction (Verified 10/09/20 13:21) pregabalin [From Lyrica] Adverse Reaction (Verified 10/09/20 13:21) DISCONTINUED MEDICATIONS METOLAZONE 2.5 MG PO MO WE FR ZAROXOLYN 2.5 MG PO 1-2 X WEEKLY FOR LEG EDEMA SMOKING: N/A DISEASE SPECIFIC EDUCATION: HEART HEALTHY DIET RENAL FAILURE FLUID INTAKE LEG EDEMA COMPLIANCE COVID- 19 LAB REVIEW: 10/13/20 04:50 10/13/20 04:50 10/13/20 04:50: Sodium 137.4, Potassium 3.91, Chloride 109.2 H, Carbon Dioxide 23.5, Anion Gap 8.61, BUN 31.9 H, Creatinine 1.40 H, Estimated GFR (MDRD) 36.00, BUN/Creatinine Ratio 22.78, Glucose 133.8 H, Calcium 9.04, Total Bilirubin 0.37, AST 19.9, ALT 11.0, Alkaline Phosphatase 56.6, Total Protein 6.30, Albumin 3.28 L, Globulin 3.02, Albumin/Globulin Ratio 1.08 10/13/20 04:50: WBC 5.58, RBC 2.83 L, Hgb 8.7 L, Hct 28.0 L, MCV 98.9, MCH 30.7, MCHC 31.1 L, RDW Coeff of Michael 14.6, Plt Count 200, Immature Gran % (Auto) 0.5, Neut % (Auto) 67.8, Lymph % (Auto) 21.9, [place] % (Auto) 6.8, Eos % (Auto) 2.5, Baso % (Auto) 0.5, Neut # (Auto) 3.8, Lymph # (Auto) 1.2, [place] # (Auto) 0.4, Eos # (Auto) 0.1, Baso # (Auto) 0.0, Immature Gran # (Auto) 0.0 PLAN: DISCHARGE HOME TODAY: HOME WITH RESIDENTIAL AND PT RESUMPTION OF CARE, OCTOBER 13, 2020 ACTIVITY: UP TOLERATED WITH FREQUENT REST PERIODS. ELEVATE LEGS THROUGHOUT THE DAY FREQUENTLY. FOLLOW INSTRUCTIONS FROM RESIDENTIAL STAFF. DIET: HEART HEALTHY WITH ADEQUATE FLUID INTAKE MD FOLLOW- UP: SEE DR. BARNES/ ANNA JULIAN APRN/ REGINA HERNANDEZ APRN IN THE OFFICE NEXT WEEK ON TUESDAY, OCTOBER 20, 2020 @ 300 PM. CALL THE OFFICE [phone] IF ANY QUESTIONS OR CONCERNS. PRESENT TO LOCAL EMERGENCY ROOM IF CANT REACH MD OFR INSTRUCTIONS OR AFTER HOURS AND ARE IN DISTRESS OR SEVERE SWELLING IN THE LEGS OCCUR. RESIDENTIAL [facility] [phone], NURSE AND THERAPIST CAN PROVIDE ASSISTANCE WITH CONCERNS ALSO. CODE STATUS: FULL CODE ONLY TAKE ZAROXOLYN 1 TO 2 TIMES IN A WEEK FOR EDEMA IN LEGS. DO NOT TO TAKE ANY NON- STEROIDAL ANTI-INFLAMMATORY MEDS. USE HOME O2 AT NIGHT DIRECTED. MRS CAMPBELL IS ALERT AND ORIENTED X 4. SHE IS UP IN THE ROOM WITH WALKER AND SBA AT X THEN AT TIMES WALKS ON HER OWN, NO DEVICE AND WITH MINIMAL WEAKNESS AND NO DIZZINESS. LUNGS ARE SLIGHTLY DIMINISHED.CLEAR AND SHE DOES REPORT SOA WITH EXERTION AT TIMES. SHE USES HOME OXYGEN AT 2 L/M PER N/C AT NIGHT. FEET WITH NO EDEMA. LEGS ARE PUFFY AND +1 NOTED TO SHINS. SKIN WARM AND DRY AND INTACT. NUTRITIONAL AND FLUID INTAKE HAS BEEN GOOD. INSTRUCTED ON APPROPRIATE FOODS AND FLUIDS. INSTRUCTED NOT TO TAKE ANY NON- STEROIDAL ANTI-INFLAMMATORY MEDS HER DTR ASSIST WITH MEDICATION SET UP IN PILL BOX. SHE HAS HAD RESIDENTIAL SN AND PT HOME HEALTH, THEY ARE TO RESUME. SHE HAS AGENCY HOMEMAKERS 3 X WEEKLY. CONTINENT OF BOWEL, WITH SOME DRIBBLING WITH BLADDER, LAST BM 10/12. MD ANNA MALLOY, IVON HERNANDEZ APRN
--- NOTE | 2020-10-13 14:02 | PN ---
DATE OF SERVICE: 10/12/2020 SUBJECTIVE: The patient was seen and examined with the Nurse Practitioner. The patient's condition is improving and her mental status has improved but still confused with place and time. The patient's problem is that she is living by herself and forgetting to eat, forgets to eat and doesn't take her medication on regular basis. Daughter who is the POA for health is aware of the fact that these things are happening. TIME SPENT: More than 30 minutes. Plan and coordination of the patient's care discussed in the presence of nurse. DESIRE
--- NOTE | 2020-10-14 11:56 | PN ---
DATE OF SERVICE: 10/13/20 SUBJECTIVE: The patient was seen and examined with the nurse practitioner. The patient's kidney functions have improved remarkably. Her mental status has improved. She is sitting up in the chair eating by herself. She is oriented to person and place, not to time. The patient is going to be discharged home. Addendum: The patient's daughter knows the patient is unable to take care of herself. She lives by herself and needs a lot of help. Daughter is trying to provide the help but not enough, she understands it and the family refusing the patient to be placed in the half-way. TIME SPENT: More than 30 minutes. Plan and coordination of the patient's care discussed in the presence of nurse. DESIRE
--- NOTE | 2020-10-14 11:58 | PN ---
BILLING 10/09/20 ADMISSION DAY LEVEL 5 10/10/20 INTERMEDIATE 10/11/20 INTERMEDIATE 10/12/20 INTERMEDIATE 10/13/20 DISCHARGE MTDD
== END 2020-10-13 12:46 | disposition home or self-care (01) | DRG 690 ==
LOC: ED 12:58 → MEDSURG A 12:58 → OBSVTOIN 16:50 → MEDSURG A 18:11
PROVIDERS: ADMIT Internal Medicine; ATTEND Internal Medicine
DX: E86.0 Dehydration; M19.90 Unspecified osteoarthritis, unspecified site; D64.9 Anemia, unspecified; E78.5 Hyperlipidemia, unspecified; I25.10 Atherosclerotic heart disease of native coronary artery without angina pectoris; F03.90 Unspecified dementia, unspecified severity, without behavioral disturbance, psychotic disturbance, mood disturbance, and anxiety; J44.9 Chronic obstructive pulmonary disease, unspecified; N39.0 Urinary tract infection, site not specified; R60.0 Localized edema; E03.9 Hypothyroidism, unspecified; I50.9 Heart failure, unspecified; E66.01 Morbid (severe) obesity due to excess calories; B96.20 Unspecified Escherichia coli [E. coli] as the cause of diseases classified elsewhere; I10 Essential (primary) hypertension; K21.9 Gastro-esophageal reflux disease without esophagitis; N18.30 Chronic kidney disease, stage 3 unspecified

== ENCOUNTER 2022-06-02 12:47 | Inpatient (IN) ==
[2022-06-02] MEDS ORDERED: SODIUM CHLORIDE 1,000 ML IV STA (12:59)
--- NOTE | 2022-06-02 13:04 | ED.PDOC ---
General ED Provider: Dr. CRYSTAL PALAFOX MD Chief Complaint: Altered Mental Status Stated Complaint: mild to mod increasing confusion today, gcs 15, oriented x 2, speech fluent, no injury, no fever, no pain, no NV, poor historian, hx dnr Time Seen by Provider: 06/02/22 12:56 Mode of Arrival: Stretcher Information Source: Patient Primary Care Provider: APOLINAR BOND Nursing and Triage Documentation Reviewed and Agree: Yes Does patient meet sepsis criteria?: No System Inflammatory Response Syndrome: Not Applicable Sepsis Protocol: For patient's 13 years and over: Temp is 96.8 and below OR 101 and greater Pulse >90 BPM Resp >20/minute Acutely Altered Mental Status Are patient's symptoms suggestive of a new infection, such as: -Pneumonia -Skin, Soft Tissue -Endocarditis -UTI -Bone, Joint Infection -Implantable Device -Acute Abdominal Infection -Wound Infection -Meningitis -Blood Stream Catheter Infection -Unknown Review of Systems Review Of Systems Constitutional: Denies Fever Eyes: Denies Vision change Ears, Nose, Mouth, Throat: Denies Throat pain Respiratory: Denies Short of air Cardiac: Denies Chest pain GI: Denies Abdominal pain or Vomiting : Reports Frequency Musculoskeletal: Denies Neck pain Skin: Denies Rash Neurological: Reports Cognitive dysfunction All Other Systems: Other [facility] Medical History (Updated 06/02/22 @ 16:30 by CRYSTAL PALAFOX MD) Acute kidney injury Anxiety CHF (congestive heart failure) COPD (chronic obstructive pulmonary disease) Depression Diabetes Emphysema of lung Family History FATHER Cancer Social History Smoking and tobacco status: Former smoker How long ago did patient quit smokin+ YEARS Alcohol intake: never History of recent travel: No Current diet type/program: low salt Surgical History History of bilateral knee replacement History of hysterectomy Stented coronary artery Female Reproductive History Menstrual Hx Hysterectomy: Yes Hx Tubal Ligation: No Physical Exam Physical Exam Appearance: Reports No pain distress Ill-appearing: None Pain Distress: None Eyes: Reports JORDAN, EOMI and Conjunctiva clear ENT: Reports Oropharynx normal Neck: Supple Respiratory: Reports Airway patent, Breath sounds clear and Breath sounds equal Cardiovascular: Reports RRR GI/: Reports Soft and Nontender Musculoskeletal: Reports ROM intact and No edema Skin: Reports Warm and Dry Neurological: Reports Cranial nerves intact, Alert and Other (news commentator equal) Psychiatric: Reports Affect appropriate Interpretation Radiology Interpretation Radiology Interpretation By: Radiologist Radiology Results: No acute changes Exam Interpreted: CXR Radiology Interpretation By: Radiologist Exam Interpreted: CT Scan Xray Comments: no head bleed EKG Interpretation Time of EKG #1: 16:27 Rate: Sharad Rhythm: Sinus Interpretation: no stemi Critical Care Note Critical Care Note Total Critical Care Time (mins): 0 Course Course Hematology/Chemistry: 06/02/22 13:20 06/02/22 13:20 Orders, Labs, Meds: Lab Review 06/02/22 06/02/22 06/02/22 13:20 13:20 13:20 WBC 8.14 RBC 4.13 L Hgb 12.0 Hct 39.1 MCV 94.7 MCH 29.1 MCHC 30.7 L RDW Coeff of Michael 14.1 Plt Count 224 Immature Gran % (Auto) 0.2 Neut % (Auto) 72.9 Lymph % (Auto) 16.3 [place] % (Auto) 8.8 Eos % (Auto) 1.4 Baso % (Auto) 0.4 Neut # (Auto) 5.9 Lymph # (Auto) 1.3 [place] # (Auto) 0.7 Eos # (Auto) 0.1 Baso # (Auto) 0.0 Immature Gran # (Auto) 0.0 Puncture Site Base Excess O2 Saturation ABG pH ABG pCO2 ABG pO2 ABG HCO3 ABG Total CO2 Bobby Test Hemoglobin Oxyhemoglobin Carboxyhemoglobin Total Hemoglobin FiO2 % Sodium 140.1 Potassium 4.38 Chloride 105.9 Carbon Dioxide 26.3 Anion Gap 12.28 BUN 21.9 H Creatinine 1.14 Estimated GFR (MDRD) 45.00 BUN/Creatinine Ratio 19.21 Glucose 97.8 Lactic Acid 1.27 Calcium 9.63 Total Bilirubin 0.53 AST 21.0 ALT 10.6 Alkaline Phosphatase 94.1 Total Creatine Kinase 79.0 Troponin I 0.013 Total Protein 7.85 Albumin 4.15 Globulin 3.70 Albumin/Globulin Ratio 1.12 Urine Color Urine Clarity Urine pH Ur Specific [place] Urine Protein Urine Glucose (UA) Urine Ketones Urine Blood Urine Nitrite Urine Bilirubin Urine Urobilinogen Ur Leukocyte Esterase Urine Microscopic RBC Urine Microscopic WBC Ur Squamous Epith Cells Amorphous Sediment Urine Bacteria SARS CoV-2 RNA Rapid MAXIMILIANO 06/02/22 06/02/22 06/02/22 13:35 13:49 16:00 WBC RBC Hgb Hct MCV MCH MCHC RDW Coeff of Michael Plt Count Immature Gran % (Auto) Neut % (Auto) Lymph % (Auto) [place] % (Auto) Eos % (Auto) Baso % (Auto) Neut # (Auto) Lymph # (Auto) [place] # (Auto) Eos # (Auto) Baso # (Auto) Immature Gran # (Auto) Puncture Site R rad Base Excess 6.2 H O2 Saturation 93.5 L ABG pH 7.40 ABG pCO2 50.0 H ABG pO2 69.0 L ABG HCO3 31.0 H ABG Total CO2 32.5 H Bobby Test Y Hemoglobin 0.8 Oxyhemoglobin 93.8 L Carboxyhemoglobin 2.4 H Total Hemoglobin 11.5 L FiO2 % 21.0 Sodium Potassium Chloride Carbon Dioxide Anion Gap BUN Creatinine Estimated GFR (MDRD) BUN/Creatinine Ratio Glucose Lactic Acid Calcium Total Bilirubin AST ALT Alkaline Phosphatase Total Creatine Kinase Troponin I Total Protein Albumin Globulin Albumin/Globulin Ratio Urine Color Dark Urine Clarity Cloudy Urine pH 6.0 Ur Specific [place] >=1.030 Urine Protein Negative Urine Glucose (UA) Negative Urine Ketones Negative Urine Blood 2+ H Urine Nitrite Negative Urine Bilirubin Negative Urine Urobilinogen 0.2 Ur Leukocyte Esterase Trace H Urine Microscopic RBC 5-10 Urine Microscopic WBC 2-5 Ur Squamous Epith Cells 0-2 Amorphous Sediment Trace Urine Bacteria 2+ SARS CoV-2 RNA Rapid MAXIMILIANO Negative Orders Category Date Time Status ABG DRAW REQUEST Stat CARDIO 06/02/22 12:59 Completed EKG-(ED ONLY) Stat CARDIO 06/02/22 12:59 Completed METERED DOSE INHALATION Routine CARDIO 06/02/22 16:28 Ordered OXYGEN [ED APPLY O2] .ONCE EMERGENCY 06/02/22 14:12 Active ABG COOX Stat LAB 06/02/22 13:49 Completed BLOOD CULTURE Stat LAB 06/02/22 15:05 Ordered BLOOD CULTURE Stat LAB 06/02/22 16:28 Ordered CBC W/ AUTO DIFF Stat LAB 06/02/22 13:20 Completed CMP [COMPREHENSIVE METABOLIC PANEL] Stat LAB 06/02/22 13:20 Completed CREATINE KINASE Stat LAB 06/02/22 13:20 Completed LACTIC ACID Stat LAB 06/02/22 13:20 Completed SARS COV-2 RNA RAPID MAXIMILIANO Stat LAB 06/02/22 13:35 Completed TROPONIN I Stat LAB 06/02/22 13:20 Completed URINALYSIS C & S IF INDICATED Stat LAB 06/02/22 16:00 Completed URINE CULTURE Stat LAB 06/02/22 16:00 Received Albuterol Inhaler(with Spacer) [Ventolin Hfa (Per Puff- MEDS 06/02/22 16:28 Discontinued with Spacer)] 2 puff IH ONCE ONE Levofloxacin/D5w [Levaquin 500 mg/100 ml D5w] MEDS 06/03/22 09:00 Ordered 500 mg in 100 ml IV DAILY Methylprednisolone Sod Succ/Pf [Solu-Medrol 125 mg] MEDS 06/02/22 16:28 Discontinued 125 mg IVP ONCE STA Sodium Chloride 0.9% [Sodium Chloride] 1,000 ml MEDS 06/02/22 12:59 Discontinued IV BOLUS RESUSCITATION STATUS Routine OTHERS 06/02/22 14:02 Ordered CHEST, 1V AP ONLY Stat RADS 06/02/22 12:[address] HEAD W/O CONTRAST Stat RADS 06/02/22 12:59 Completed PELVIS & NIRALI HIPS Stat RADS 06/02/22 13:04 Completed Medications Generic Name Dose Route Start Last Admin Trade Name Freq PRN Reason Stop Dose Admin Levofloxacin/Dextrose 500 mg in 100 mls @ 100 mls/hr 06/03/22 09:00 Levaquin 500 Mg/100 Ml D5w IV 06/06/22 08:59 DAILY KANDACE Discontinued Medications Generic Name Dose Route Start Last Admin Trade Name Freq PRN Reason Stop Dose Admin Albuterol Sulfate 2 puff 06/02/22 16:28 Albuterol Sulfate (Ventolin Hfa) 18 Gm 1 Puff With Spacer IH 06/02/22 16:29 ONCE ONE Sodium Chloride 1,000 mls @ 1,000 mls/hr 06/02/22 12:59 Sodium Chloride IV 06/02/22 13:58 BOLUS STA Methylprednisolone Sodium Succinate 125 mg 06/02/22 16:28 Methylprednisolone Sod Succ/Pf 125 Mg/2 Ml Vial IVP 06/02/22 16:29 ONCE STA Vital Signs: Temp Pulse Resp BP Pulse Ox 06/02/22 12:49 98.3 F 57 L 20 110/53 L 97 Discharge Plan Discharge Patient Disposition: ADMITTED INPATIENT Discharge Problem: Acute confusion, Hypoxia, COPD exacerbation Did you review [place] RESIN PAINTER?: Not Applicable ED Provider: CRYSTAL PALAFOX Condition: Stable Physician Progress Note: []admit d/w Dr Bond
[2022-06-02 13:30] LABS: BASOPHILS % (AUTO) 0.4 % (0.0-3.0); EOSINOPHILS # (AUTO) 0.1 K/ul (0.0-0.7); EOSINOPHILS % (AUTO) 1.4 % (0.0-7.0); HEMATOCRIT 39.1 % (37.0-47.0); IMMATURE GRANULOCYTE % (AUTO) 0.2 % (0.0-5.0); LYMPHOCYTES # (AUTO) 1.3 K/uL (0.60-3.4); LYMPHOCYTES % (AUTO) 16.3 (10.0-50.0); MEAN CORPUSCULAR HEMOGLOBIN 29.1 pg (27.0-31.0); MEAN CORPUSCULAR HGB CONC 30.7 (31.8-35.4); MEAN CORPUSCULAR VOLUME 94.7 fl (81.0-99.0); MONOCYTES # (AUTO) 0.7 K/uL (0.4-2.0); MONOCYTES % (AUTO) 8.8 (0-10); NEUTROPHILS # (AUTO) 5.9 K/ul (2.0-6.9); NEUTROPHILS % (AUTO) 72.9 % (42.2-75.2); PLATELET COUNT 224 10^3/uL (140-440); RDW COEFFICIENT OF VARIATION 14.1 % (11.6-14.8); RED BLOOD COUNT 4.13 10^6/ul (4.20-5.40); WHITE BLOOD COUNT 8.14 K/ul (4.6-10.2)
[2022-06-02 13:43] LABS: ALANINE AMINOTRANSFERASE 10.6 U/L (0-35); ALBUMIN 4.15 g/dL (3.5-5.0); ALKALINE PHOSPHATASE 94.1 U/L (53-141); BILIRUBIN,TOTAL 0.53 mg/dL (0.2-1.3); BLOOD UREA NITROGEN 21.9 mg/dL (7-17); CALCIUM 9.63 mg/dL (8.4-10.2); CARBON DIOXIDE 26.3 mmol/L (22-30.0); CHLORIDE 105.9 mmol/L (98-107); CREATININE 1.14 mg/dL (0.60-1.30); GLUCOSE 97.8 mg/dL (74-106); POTASSIUM 4.38 mmol/L (3.5-5.1); SODIUM 140.1 mmol/L (134.5-145); TOTAL PROTEIN 7.85 g/dL (6.3-8.2)
--- NOTE | 2022-06-02 13:49 | DI ---
EXAMINATION: AP chest radiograph. HISTORY: Altered mental status COMPARISON: 10/09/2020 FINDINGS: There is lordotic patient positioning.No focal consolidation, pleural effusion or pneumothorax is gregorio ntified. The cardiac silhouette is mildly prominent but likely accentuated by the technique. Aortic calcified atherosclerotic plaque is seen. The osseous structures appear unchanged. IMPRESSION: No acute cardiopulmonary findings.
[2022-06-02 13:54] LABS: TROPONIN I 0.013 ng/ml (0.0000-0.120)
--- NOTE | 2022-06-02 13:56 | DI ---
EXAM: AP view of the pelvis. AP and frog-leg lateral views of the right hip. AP and frog-leg latera l views of the left hip. HISTORY: Fall COMPARISON: 05/04/2021 FINDINGS: No fracture or dislocation is identified. There is minimal joint space loss of the hips. Severe deg enerative changes of the lower lumbar spine are noted. Pelvic phleboliths are identified. IMPRESSION: No acute osseous abnormality. Minimal bilateral hip osteoarthritis. Lower lumbar degenerative disc disease and facet arthropathy.
[2022-06-02 14:08] LABS: ABG O2 HGB 93.8 % (95-100); BEecf 6.2 (-2.0-3.0); COHb 2.4 (0.5-1.5); MetHb 0.8 (0-1.5); TCO2 32.5 (19-24); sO2 93.5 % (94-98); tHb 11.5 g/dl (11.7-17.4)
--- NOTE | 2022-06-02 15:01 | CT ---
EXAM: CT of the head without contrast. HISTORY: Altered mental status. COMPARISON: None available. TECHNIQUE: Noncontrast CT of the head. FINDINGS: No intracranial hemorrhage or mass effect is identified. There is mild to moderate prominence of the sulci and mild prominence of the ventricles. Moderate periventricular and subcortical white matter hypodensities are seen. There is a right frontal lobe punctate calcification. Basal ganglial calcif ications are also noted. No briones white matter differentiation loss is seen to suggest an acute infarc t. Intracranial calcified atherosclerotic plaque is noted. The calvarium is intact. The visualized paranasal sinuses are unopacified. IMPRESSION: No evidence of an acute intracranial process. Mild to moderate atrophy and moderate chronic small vessel ischemic changes. All CT scans are performed using dose optimization techniques as appropriate to the performed exam an d include at least one of the following: Automated exposure control, adjustment of the mA and/or kV according t o size, and the use of iterative reconstruction technique.
[2022-06-02 16:06] LABS: BILIRUBIN,URINE Negative (NEGATIVE); CLARITY,URINE Cloudy (CLEAR); COLOR,URINE Dark (YELLOW); GLUCOSE, URINE (UA) Negative (NEGATIVE); KETONES,URINE Negative (NEGATIVE); LEUKOCYTE ESTERASE ,URINE Trace (NEGATIVE); NITRITE,URINE Negative (NEGATIVE); PROTEIN,URINE Negative (NEGATIVE); URINE, BLOOD 2+ (NEGATIVE); UROBILINOGEN,URINE 0.2 (0.2)
[2022-06-02 16:25] LABS: AMORPHOUS SEDIMENT,UR TRACE (NOT PRESENT); BACTERIA,URINE 2+ (NOT PRESENT); SQUAMOUS EPITHELIAL CELL,UR 0-2 (0-5)
[2022-06-02] MEDS ORDERED: SOLU-MEDROL 125 MG IVP STA (16:28)
[2022-06-02] MEDS ORDERED: VENTOLIN HFA (PER PUFF-WITH SPACER) IH ONE (16:28)
[2022-06-02] MEDS ORDERED: TYLENOL PO PRN (16:32)
[2022-06-02] MEDS ORDERED: ULTRAM PO PRN (16:37)
[2022-06-02] MEDS ORDERED: NITROSTAT SL PRN (16:42)
[2022-06-02] MEDS ORDERED: ATROPINE SULFATE PFS IVP PRN (16:42)
[2022-06-02] MEDS: CARAFATE PO SCH ×2 (16:50→20:39)
[2022-06-02] MEDS: SODIUM CHLORIDE 1,000 ML IV SCH (16:53)
[2022-06-02] MEDS: PROTONIX PO SCH (17:01)
[2022-06-02] MEDS: SOLU-MEDROL 125 MG IVP SCH ×2 (17:02→22:46)
[2022-06-02] MEDS ORDERED: LEVAQUIN 750 MG/150 ML D5W 750 MG/150 ML BAG IV SCH (17:30)
[2022-06-02] MEDS: ALBUTEROL 0.083% NEB NEB SCH (19:30)
[2022-06-02 19:42] VITALS: BMI 31.4
[2022-06-02] MEDS: KLONOPIN PO SCH (20:38)
[2022-06-02] MEDS: SINGULAIR PO SCH (20:39)
[2022-06-02] MEDS ORDERED: ALBUTEROL 0.083% NEB NEB SCH (22:00)
[2022-06-03] MEDS: ALBUTEROL 0.083% NEB NEB SCH ×4 (04:55→20:20)
[2022-06-03 05:36] LABS: HEMATOCRIT 35.5 % (37.0-47.0); HEMOGLOBIN 11.2 g/dl (12.0-16.0); IMMATURE GRANULOCYTE % (AUTO) 0.2 % (0.0-5.0); MEAN CORPUSCULAR HGB CONC 31.5 (31.8-35.4); MONOCYTES # (AUTO) 0.1 K/uL (0.4-2.0); MONOCYTES % (AUTO) 1.1 (0-10); NEUTROPHILS # (AUTO) 4.4 K/ul (2.0-6.9); NEUTROPHILS % (AUTO) 79.7 % (42.2-75.2); PLATELET COUNT 208 10^3/uL (140-440); RDW COEFFICIENT OF VARIATION 13.8 % (11.6-14.8); RED BLOOD COUNT 3.86 10^6/ul (4.20-5.40); WHITE BLOOD COUNT 5.48 K/ul (4.6-10.2)
[2022-06-03] MEDS: CARAFATE PO SCH ×4 (05:47→20:41)
[2022-06-03] MEDS: PROTONIX PO SCH ×2 (05:47→17:27)
[2022-06-03 06:03] LABS: ALANINE AMINOTRANSFERASE 11.8 U/L (0-35); ALBUMIN 3.54 g/dL (3.5-5.0); ALKALINE PHOSPHATASE 75.5 U/L (53-141); ASPARTATE AMINO TRANSFERASE 20.2 U/L (14-36); BLOOD UREA NITROGEN 20.8 mg/dL (7-17); CALCIUM 9.26 mg/dL (8.4-10.2); CARBON DIOXIDE 24.6 mmol/L (22-30.0); CHLORIDE 106.7 mmol/L (98-107); POTASSIUM 4.43 mmol/L (3.5-5.1); SODIUM 138.7 mmol/L (134.5-145); TOTAL PROTEIN 6.97 g/dL (6.3-8.2)
[2022-06-03 06:18] LABS: TROPONIN I < 0.012 ng/ml (0.0000-0.120)
[2022-06-03] MEDS ORDERED: LASIX TAB PO SCH (06:30)
[2022-06-03] MEDS ORDERED: SYNTHROID PO SCH (06:30)
[2022-06-03] MEDS ORDERED: LEVAQUIN 500 MG/100 ML D5W 500 MG/100 ML BAG IV SCH ×2 (09:00→09:30)
[2022-06-03] MEDS ORDERED: NON-FORMULARY MEDICATION (Aspirin 81 mg Tablet) PO SCH (09:00)
[2022-06-03] MEDS ORDERED: ROCEPHIN 1 GM/50 ML D5W 1 GM/50 ML BAG IV SCH (09:00)
[2022-06-03] MEDS: SODIUM CHLORIDE 1,000 ML IV SCH (11:03)
[2022-06-03] MEDS: K-DUR PO SCH (11:06)
[2022-06-03] MEDS: TOPROL XL PO SCH (11:06)
[2022-06-03] MEDS: KLONOPIN PO SCH ×2 (11:07→20:41)
[2022-06-03] MEDS: ZYLOPRIM PO SCH (11:07)
[2022-06-03] MEDS: VASOTEC PO SCH (11:08)
[2022-06-03] MEDS: PRAVACHOL PO SCH (11:08)
[2022-06-03] MEDS: ASPIRIN EC PO SCH (11:09)
[2022-06-03] MEDS: CELEXA PO SCH (11:09)
[2022-06-03] MEDS: PREDNISONE PO SCH (11:09)
[2022-06-03] MEDS: DITROPAN PO SCH (11:23)
--- NOTE | 2022-06-03 11:25 | RS.PTINEVL ---
Subjective - Patient information Date of Evaluation: 06/03/22 Date of Arrival on Unit: 06/02/22 Admitted From:: Home Diagnosis: hypoxia, acute confusion Usual Living Arrangement: Alone Home Environment: House, Level/No stairs Medical History: COPD, Diabetes, CHF, Arthritis Medical History Comments:: depression, CAD, acute kidney injury Surgical History: Knee Replacement (BTKR), Hysterectomy Surgical History Comments:: coronary stent Medications: see chart Subjective Information/ Patient Comments:: pt states that she feels better today, states she would like to lock up some money from her purse. (Notified Jeremy KENNEDY). pt reports that she has a son that checks on her several days a week and has a worker that comes 2 hours Monday, , . - Level of function Prior to this admission, the patient could do the following:: Independent ADL's, Independent Ambulation (with standard walker) Abilities prior to this admission: had a worker who assisted with cleaning, some cooking and getting groceries. Current Level of Function: Partially Dependent Current Equipment Used at Home: Walker Interventions - Objective Patient Orientation: Person (pt oriented to person and confused regarding place, time ) Current Interventions: IV's, Oxygen, Telemetry Observation: pt's plantar surfaces of feet are black, dirty. Notified Peggy RAMIREZ. pt with edema BLE. Range of Motion - ROM Right Upper Extremity AROM: WFL's Left Upper Extremity AROM: WFL's Right Lower Extremity AROM: WFL's Left Lower Extremity AROM: WFL's Muscle Strength - Muscle Strength Right Upper Extremity Strength: Mild Weakness (grossly 4/5) Left Upper Extremity Strength: Mild Weakness (grossly 4/5) Right Lower Extremity Strength: Mild Weakness (hip flex 4-/5, knee flex/ext 4/5, ankle DF/PF 4/5) Left Lower Extremity Strength: Mild Weakness (hip flex 4-/5, knee flex/ext 4/5, ankle DF/PF 4/5) Sensation - Sensation Right Upper Extremity Sensation: Intact/Normal Left Upper Extremity Sensation: Intact/Normal Right Lower Extremity Sensation: Intact/Normal Left Lower Extremity Sensation: Intact/Normal Palpation Palpation Findings: Tenderness (to anterior lower legs) Balance - Sitting Balance and Reactions Static Sitting Balance: Good Dynamic Sitting Balance: Fair (fair+) - Standing Balance and Reactions Static Standing Balance: Poor Dynamic Standing Balance: Poor Standing Equilibrium Reactions: Delayed Left, Delayed Right Standing Protective Reactions: Delayed Left, Delayed Right - Comments Balance Assessment Comments: Tinetti score: 14/28 consistent with high risk of falls. pt able to maintain sitting balance against min challenges. While amb and looking up and to left pt became dizzy which resolved quickly. Functional Mobility - Bed Mobility Scooting: Min Assist, 2 person assist Supine to Sit: CGA Sit to Supine: CGA Comments:: on/off commode with CGA. pt performed hygeine with set up help. pt requires min assist to don brief. - Transfers Sit to Stand: CGA Stand to Sit: CGA - Safety Awareness Safety Awareness: Poor FAUSTO INDEX SCORE: n/a Ambulation - Ambulation Assistive Device Used: Rolling Walker Orthotic/Prosthetic Device: No Distance: 110ft Assistance needed with Ambulation: CGA Gait Deviations: Forward posture, Short stride, Deviates from path Ambulation Comments: pt required verbal cues for walker placement and posture. pt does deviate from path Factors Affecting Ambulation: Decreased Balance, Weakness, Dizziness, Cognitive Status, Limited Endurance Treatment time - Time with patient Length of Evaluation: 21 Total treatment time: 32 Patient Education - Education Patient Education: Activity Modification, Education of Plan of Care Teaching Recipient: Patient Teaching Methods: Discussion Comments: discussion regarding POC as well as home safety Assessment - Assessment Problem List:: Decreased level of function, Requires training/education, Decreased safety/Risk of falls, Weakness, Cognitive status limits abilities Rehab Potential: Good Further Therapy Indicated?: Yes Candidate for Swing Bed for Therapy Services?: Feel pt may not be a candidate for swing bed due to higher level of function. Feel pt may benefit from home health PT at [place] for home safety. Evaluation Complexity: HISTORY: Medium, EXAM OF BODY SYSTEMS: Medium, CLINICAL PRESENTATION: Medium, CLINICAL DECISION MAKING: Medium Patient's Goal(s): I want to get back home to my dog. Short Term Goals GOAL #1: pt independent with rolling and scooting in bed. Goal to be met by: 06/06/22 GOAL #2: Transfer sup to/from sit SBA Goal to be met by: 06/06/22 GOAL #3: Transfer sit to/from stand SBA Goal to be met by: 06/06/22 GOAL #4: pt amb 140ft with rwx with improved posture and CGA to SBA Goal to be met by: 06/06/22 GOAL #5: Improve BLE strength 4 to 4+/5 Goal to be met by: 06/06/22 Long-Term Goals GOAL #1: pt with improved dyn stand balance with tinetti score Goal to be met by: 06/08/22 GOAL #2: pt amb functional household distances with rwx SBA Goal to be met by: 06/08/22 GOAL #3: pt transfer sup to/from sit to/from stand independently. Goal to be met by: 06/08/22 Plan Plan of Care: Therapeutic EX, Therapeutic Activity Other:: gait training Frequency of Treatment: 1-2 X day, as tolerated Duration of Treatment: 5 days Anticipated Discharge Destination: Home Treatment Diagnosis (ICD 10 Codes): impaired balance R 26.81. difficulty walking R 26.2. fall risk Z91.81. weakness M62.81 Has the Physician been added for Co-signature?: Yes
--- NOTE | 2022-06-03 11:43 | PCM.PROG ---
Attending Provider: ATTENDING PROVIDER: Dr. APOLINAR BARNES DATE OF SERVICE: 06/03/22 SUBJECTIVE: This 87 year old /WHITE F was hospitalized 06/02/22 because of hypoxemia and saturation noted to 80%. The patient was found on the floor by caregiver. No obvious signs of injury. The patient is confused but alert. The patient doesn't have any complaints. REVIEW OF SYSTEMS: CONSTITUTIONAL: No night sweats. No fatigue, malaise, lethargy. No fever or chills. HEENT: Eyes: No visual changes. No eye pain. No eye discharge. ENT: No runny nose. No epistaxis. No sinus pain. No odynophagia. No congestion. RESPIRATORY: No cough, no congestion. No hemoptysis. No shortness of breath. CARDIOVASCULAR: No angina symptoms. No CHF symptoms. No atypical chest pain for CAD. No palpitations. No orthopnea.. GASTROINTESTINAL: No abdominal pain. No nausea or vomiting. No diarrhea or const ipation. No hematemesis. No hematochezia. GENITOURINARY: No urgency. No frequency. No dysuria. No hematuria. No obstructive symptoms. No discharge. No pain. No significant abnormal bleeding. MUSCULOSKELETAL: No musculoskeletal pain; no joint swelling. NEUROLOGICAL: Awake, alert, oriented to time, place and person. No headache. No neck pain. No syncope. No seizures. No dizziness. PSYCHIATRIC: Not anxious. No depression. No suicidal thoughts. No homicidal thoughts. SKIN: No rash. No lesions. No wounds. ENDOCRINE: No unexplained weight loss. No weight gain. HEMATOLOGIC/LYMPHATIC: No anemia. No purpura. No petechiae. No prolonged or excessive bleeding. No palpable lymph nodes. PHYSICAL EXAMINATION: GENERAL: The patient is awake, alert and oriented, sitting in bed in no distress. VITAL SIGNS: Temperature 97.6 F, Pulse 60, Respiratory Rate 20, BP 127/59, Pulse Ox 96% HEENT: Head normocephalic, atraumatic. Eyes: Extraocular muscles are intact. Pupils are equal, round and reactive to light and accommodation. Ears: No lesions. Nose appeared normal. Throat: No exudate or erythema. NECK: Supple. No JVD, no carotid bruit. No lymphadenopathy or thyromegaly. LUNGS: Clear to auscultation. Percussion note normal. Chest symmetrical. HEART: S1, S2, no S3. No murmurs. No cyanosis or clubbing. No ascites. Pulses: Dorsalis pedis and posterior tibial pulses +1 to +2 both sides. ABDOMEN: Soft. Non-tender. Bowel sounds active. No CVA tenderness. No mass felt. EXTREMITIES: No edema. Full range of motion of all extremities, equal. NEUROLOGIC: No focal deficit. Cranial nerves II through XII are grossly intact. No headache, no double vision or headache. SKIN: Warm and dry. Intact. Turgor-normal. LYMPHATIC: No palpable lymph nodes/no lymphedema. MUSCULOSKELETAL: Normal joints with no swelling. Muscle tone is normal. LAB REVIEW: 06/03/22 05:31 06/03/22 05:31 06/03/22 05:31: Sodium 138.7, Potassium 4.43, Chloride 106.7, Carbon Dioxide 24.6, Anion Gap 11.83, BUN 20.8 H, Creatinine 1.00, Estimated GFR (MDRD) 53.00, BUN/Creatinine Ratio 20.80, Glucose 152.0 H D, Calcium 9.26, Total Bilirubin 0.50, AST 20.2, ALT 11.8, Alkaline Phosphatase 75.5, Troponin I < 0.012, Total Protein 6.97, Albumin 3.54, Globulin 3.43, Albumin/Globulin Ratio 1.03 06/03/22 05:31: WBC 5.48, RBC 3.86 L, Hgb 11.2 L, Hct 35.5 L, MCV 92.0, MCH 29.0, MCHC 31.5 L, RDW Coeff of Michael 13.8, Plt Count 208, Immature Gran % (Auto) 0.2, Neut % (Auto) 79.7 H, Lymph % (Auto) 19.0, [place] % (Auto) 1.1, Eos % (Auto) 0.0, Baso % (Auto) 0.0, Neut # (Auto) 4.4, Lymph # (Auto) 1.0, [place] # (Auto) 0.1 L, Eos # (Auto) 0.0, Baso # (Auto) 0.0, Immature Gran # (Auto) 0.0 06/02/22 22:40: Troponin I < 0.012 06/02/22 16:00: Urine Color Dark, Urine Clarity Cloudy, Urine pH 6.0, Ur Specific [place] >=1.030, Urine Protein Negative, Urine Glucose (UA) Negative, Urine Ketones Negative, Urine Blood 2+ H, Urine Nitrite Negative, Urine Bilirubin Negative, Urine Urobilinogen 0.2, Ur Leukocyte Esterase Trace H, Urine Microscopic RBC 5-10, Urine Microscopic WBC 2-5, Ur Squamous Epith Cells 0-2, Amorphous Sediment Trace, Urine Bacteria 2+ 06/02/22 13:49: Puncture Site R rad, Base Excess 6.2 H, O2 Saturation 93.5 L, ABG pH 7.40, ABG pCO2 50.0 H, ABG pO2 69.0 L, ABG HCO3 31.0 H, ABG Total CO2 32.5 H, Bobby Test Y, Hemoglobin 0.8, Oxyhemoglobin 93.8 L, Carboxyhemoglobin 2.4 H, Total Hemoglobin 11.5 L, FiO2 % 21.0 06/02/22 13:35: SARS CoV-2 RNA Rapid MAXIMILIANO Negative 06/02/22 13:20: Lactic Acid 1.27 06/02/22 13:20: Sodium 140.1, Potassium 4.38, Chloride 105.9, Carbon Dioxide 26.3, Anion Gap 12.28, BUN 21.9 H, Creatinine 1.14, Estimated GFR (MDRD) 45.00, BUN/Creatinine Ratio 19.21, Glucose 97.8, Calcium 9.63, Total Bilirubin 0.53, AST 21.0, ALT 10.6, Alkaline Phosphatase 94.1, Total Creatine Kinase 79.0, Troponin I 0.013, Total Protein 7.85, Albumin 4.15, Globulin 3.70, Albumin/Globulin Ratio 1.12 06/02/22 13:20: WBC 8.14, RBC 4.13 L, Hgb 12.0, Hct 39.1, MCV 94.7, MCH 29.1, MCHC 30.7 L, RDW Coeff of Michael 14.1, Plt Count 224, Immature Gran % (Auto) 0.2, Neut % (Auto) 72.9, Lymph % (Auto) 16.3, [place] % (Auto) 8.8, Eos % (Auto) 1.4, Baso % (Auto) 0.4, Neut # (Auto) 5.9, Lymph # (Auto) 1.3, [place] # (Auto) 0.7, Eos # (Auto) 0.1, Baso # (Auto) 0.0, Immature Gran # (Auto) 0.0 ASSESSMENT: Please see below. 1. Hypoxemia seems to be have resolved, confused same as before 2. History of coronary artery disease 3. Chronic lung disease 4. Diabetes Mellitus 5. Chronic anemia 6. Dementia 7. Lives by herself take care of by bookkeepers supervisor, son and daughter that lives near by. PLAN: 1. Continue to give antibiotics because patient's U/A abnormal UTI will be on Levaquin. 2. Continue rest of medications 3. PT consult CONDITION: Stable. Plan and coordination of the patient's care discussed in the presence of Pedigree Tracer and nurse. SCRIBED BY: Gail [facility] scribed while in presence of service performed by Dr. APOLINAR BARNES on 06/03/22 ([id number])
--- NOTE | 2022-06-03 12:32 | HP ---
DATE OF SERVICE: 06/02/22 REASON FOR HOSPITALIZATION/HISTORY OF PRESENT ILLNESS: This 87 year old /WHITE F was hospitalized 06/02/22 because of hypoxemia and saturation noted to 80%. The patient was found on the floor by caregiver. No obvious signs of injury. The patient is confused but alert. The patient doesn't have any complaints. PAST MEDICAL HISTORY/PAST SURGICAL HISTORY: History of coronary artery disease Morbid obesity Depression Dementia Hypothyroidism Hypertension Dyslipidemia Reflux disease REVIEW OF SYSTEMS: CONSTITUTIONAL: No night sweats. No fatigue, malaise, lethargy. No fever or chills. HEENT: Eyes: No visual changes. No eye pain. No eye discharge. ENT: No runny nose. No epistaxis. No sinus pain. No sore throat. No odynophagia. No ear pain. No congestion. RESPIRATORY: No cough, no congestion. No hemoptysis. No shortness of breath. CARDIOVASCULAR: No angina symptoms. No CHF symptoms. No atypical chest pain for CAD. No palpitations. No PND. No orthopnea. GASTROINTESTINAL: No abdominal pain. No nausea or vomiting. No diarrhea or constipation. No hematemesis. No hematochezia. GENITOURINARY: No urgency. No frequency. No dysuria. No hematuria. No obstructive symptoms. No discharge. No pain. No significant abnormal bleeding. MUSCULOSKELETAL: No musculoskeletal pain. No joint swelling. No arthritis. NEUROLOGICAL: No headache. No neck pain. No syncope. No seizures. No dizziness. PSYCHIATRIC: Not anxious. No depression. No suicidal thoughts. No homicidal thoughts. SKIN: No rash. No lesions. No wounds. ENDOCRINE: No unexplained weight loss. No weight gain. HEMATOLOGIC/LYMPHATIC: No anemia. No purpura. No petechiae. No prolonged or excessive bleeding. No palpable lymph nodes. PERSONAL/FAMILY/SOCIAL HISTORY: The patient is lives by herself with help of daughter. She has dementia. Nonsmoker. No alcohol abuse. MEDICATIONS: Citalopram 20mg PO daily Klonopin 0.5mg pO BID Synthroid 75mcg PO QDAC Singulair 10mg PO bedtime Tramadol 50mg pO TID PRN Pravachol 80mg PO daily Allopurinol 100mg PO daily Pantoprazole 40mg PO BID Toprol XL 50mg PO daily Enalapril maleate 5mg Po daily Carafate 1gram PO ACHS Furosemide 20mg PO daily Oxybutynin Chloride 5mg PO daily Potassium Chloride 20meq PO daily Metolazone 2.5mg PO two times per week PRN Aspirin 81mg PO daily ALLERGIES: Hydrocodone Meperidine HCL Pregabalin PHYSICAL EXAMINATION: GENERAL: The patient is oriented to person, not to place and time. VITAL SIGNS: Temperature 98.3, pulse 57, blood pressure 110/53, respiratory rate 20 and oxygen saturation 97% HEENT: Head normocephalic, atraumatic. Eyes: Extraocular muscles are intact. Pupils are equal, round and reactive to light and accommodation. Ears: No lesions. Nose appeared normal. Throat: No exudate or erythema. NECK: Supple. No JVD, no carotid bruit. No lymphadenopathy or thyromegaly. LUNGS: Clear to auscultation. Percussion note normal. Chest symmetrical. HEART: S1, S2, no S3. No murmur. No cyanosis or clubbing. No ascites. Pulses: Dorsalis pedis and posterior tibial pulses +1 to +2 bilaterally. ABDOMEN: Soft. Nontender. Bowel sounds active. No CVA tenderness. No mass felt. EXTREMITIES: No edema. Full range of motion of all extremities, equal. NEUROLOGIC: No focal deficit. Cranial nerves II through XII are grossly intact. No headache, no double vision or headache. SKIN: Not dry. Intact. Turgor - normal. LYMPHATIC: No palpable lymph nodes/no lymphedema. MUSCULOSKELETAL: Normal joints with no swelling. Muscle tone is normal. LABS: EKG which showed no changes from the EKG before. No acute changes noted. Cardiac markers Troponin all negative. ASSESSMENT: 1. UTI 2. Confusion 3. Dehydration 4. Hypoxemia 5. Coronary artery disease 6. COPD 7. Obesity 8. Hypertension 9. Dyslipidemia 10. Diabetes Mellitus PLAN: 1. Admit 2. Continue home medications TIME SPENT: More than 70 minutes. MTDD
--- NOTE | 2022-06-03 14:32 | PN ---
DATE OF SERVICE: 06/02/22 SUBJECTIVE: The patient was seen and examined in the ER. The patient was brought to the emergency room because her oxygen saturation at home was noted to be 80% and she was confused. The patient is COVID negative. Son is present in the room. The patient was answering her questions very well. She recognized me. She gets confused at times. Son doesn't want her to be full code, he wants DNR. The patient in the past had wanted DNR. She has multiple medical problems like coronary artery disease, respiratory insufficiency, obesity, weight loss. The patient lives by herself. She has Alzheimer's disease can't take care of herself properly. The patient's blood gasses and labs are acceptable. She is going to be hospitalized and watch her for any hypoxemia or any arrhythmias. She doesn't seem to be in CHF. X-ray was unremarkable except for cardiomegaly. CONDITION: Stable. The patient is going to be on routine telemetry orders. TIME SPENT: More than 30 minutes. Plan and coordination of the patient's care discussed in the presence of nurse. DESIRE
--- NOTE | 2022-06-03 15:46 | US ---
EXAMINATION: BILATERAL CAROTID ULTRASOUND HISTORY: Confusion and dizziness. COMPARISON: None TECHNIQUE: Sonographic evaluation of the bilateral carotid arteries was performed with briones scale and color and spectral Doppler imaging. Ultrasound images were acquired and stored in a permanent [employer] ve. FINDINGS: Tortuous courses of the internal carotid arteries. Difficult exam due to patient motion. Plaque distribution: Moderate bilateral atherosclerotic calcification of the carotid bifurcations and proximal internal carotid arteries. ICA peak systolic velocity (cm/s): - Right: 136 - Left: 129 ICA end diastolic velocity (cm/s): - Right: 20 - Left: 17 CCA peak systolic velocity (cm/s): - Right: 113 - Left: 136 ECA peak systolic velocity (cm/s): - Right: 200 - Left: 253 Vertebrals: - Right: Not visualized. - Left: Not visualized. ICA/CCA Systolic Velocity Ratio: - Right: 1.2 - Left: 1.0 Society of Radiologists in Ultrasound (SRU) consensus statement (Radiology 2003; 229:340-346. DOI 10 .[id number].[id number]) was used to estimate internal carotid artery stenosis. IMPRESSION: 50-69% stenosis of the right internal carotid artery. 50-69% stenosis of the left internal carotid artery. Bilateral vertebral arteries are not visualized. High-grade stenosis or occlusion not excluded.
--- NOTE | 2022-06-03 15:49 | RS.OTINEVL ---
Subjective - Patient information Date of Evaluation: 06/03/22 Date of Arrival on Unit: 06/02/22 Admitted From:: Home Diagnosis: Hypoxia, Acute confusion ,lives alone PRECAUTIONS: Fall risk. Usual Living Arrangement: Alone Living Arrangement Comments: lives home alone with pet Home Environment: House, Level/No stairs Medical History: COPD, Diabetes, CHF, Arthritis Medical History Comments:: depression, CAD, acute kidney injury Surgical History: Knee Replacement (BTKR), Hysterectomy Surgical History Comments:: coronary stent Medications: see chart Subjective Information/ Patient Comments:: Pt reports [employer] helps her with groceries. Pt reports he son comes to see her almost daily. - Level of function Prior to this admission, the patient could do the following:: Independent ADL's, Independent Ambulation (with standard walker) Abilities prior to this admission: Pt is not able to drive these days. Pt is forgetful. Pt has edema of BLE. Current Level of Function: Partially Dependent Current Equipment Used at Home: Walker Interventions - Objective Patient Orientation: Person, Place Current Interventions: IV's, Oxygen Observation: Pt reports she sleeps on O2 at home. Pt is able to stand from EOB Min A. Pt appears weak and requires extra time to complete ADLS. Interventions - ROM Right Upper Extremity AROM: WFL's Left Upper Extremity AROM: WFL's - Strength Right Upper Extremity Strength: Mild Weakness Left Upper Extremity Strength: Mild Weakness - Sensation Right Upper Extremity Sensation: Intact/Normal Left Upper Extremity Sensation: Intact/Normal Balance - Sitting Balance Static Sitting Balance: Good Dynamic Sitting Balance: Good - Standing Balance Static Standing Balance: Fair Dynamic Standing Balance: Fair ADL Skills - Self Feeding Self Feeding: Independent - Grooming Grooming: CGA - Bathing Bathing UE: CGA Bathing LE: Min Assist - Dressing Dressing UE: CGA Dressing LE: Min Assist - Toilet Management Toilet Hygiene: CGA Toilet Clothing Management: Min Assist Functional Mobility - Bed Mobility Rolling R/L: Independent Scooting: Independent Supine to Sit: Independent - Transfers Sit to Stand: Min Assist Stand to Sit: Min Assist Stand Pivot Transfers: Min Assist Comments:: Bathroom is small in her room and pt required assistance for safety. - Ambulation Weight Bearing Status: FWB Assistive Device Used: Rolling Walker Assistance needed with Ambulation: Min Assist, 1 person assist, Tactile Cues Comments:: Pt requires O2 when walking. Pt became SOA this morning. - Safety Awareness Safety Awareness: Good FAUSTO INDEX SCORE: . Additional Treatment Performed - Time with patient Length of Evaluation: 20 Total treatment time: 20 Activities Do you enjoy playing games?: Yes Would you be interested in leaving your room for activities?: Yes Would you enjoy group activities?: Yes Do you have difficulty with your vision?: Yes Patient Interests:: Reading Books/Magazines Patient Education Patient Education: Home Exercise Program, Home Safety, Education of Plan of Care Teaching Recipient: Patient Teaching Methods: Discussion, Demonstration Assessment Problem List:: Decreased level of function, Decreased safety/Risk of falls, Weakness, Cognitive status limits abilities Rehab Potential: Good Further Therapy Indicated?: Yes Evaluation Complexity: HISTORY: Medium, EXAM OF BODY SYSTEMS: Medium, CLINICAL DECISION MAKING: Medium Patient's Goal(s): To be able to go home and take care of her dog. Short Term Goals - Goals GOAL 1: Pt to increase her dyn. std. bal. to Fair+ for safety. Goal to be met by: 06/07/22 GOAL 2: Pt to be (I) with sink level ADLS with RW. Goal to be met by: 06/07/22 GOAL 3: Pt to increase BUE strength to 4+/5. Goal to be met by: 06/07/22 GOAL 4: Pt to increase donning her depends to CGA. Goal to be met by: 06/07/22 Launch Engineer Goals GOAL 1: Pt to increase dyn. std. bal. to G-. Goal to be met by: 06/10/22 GOAL 2: Pt to increase BUE strength to 5/5. Goal to be met by: 06/10/22 GOAL 3: Pt to increase independence of ADLs to (I). Goal to be met by: 06/10/22 Plan Plan of Care: Therapeutic EX, Neuromuscular Re-Educ, Therapeutic Activity, Self- Care/Home Management Frequency of Treatment: 1-2 X day, as tolerated Duration of Treatment: 1 Week Anticipated Discharge Destination: Home Treatment Diagnosis (ICD 10 Codes): M62.81 Weakness, Z74.1 Need for assistance with personal care. Has the Physician been added for Co-signature?: Yes
[2022-06-03] MEDS: SOLU-MEDROL 125 MG IVP SCH (17:38)
[2022-06-03] MEDS: SINGULAIR PO SCH (20:41)
[2022-06-04] MEDS ORDERED: VISTARIL PO PRN ×2 (00:46→15:22)
[2022-06-04] MEDS: ALBUTEROL 0.083% NEB NEB SCH ×4 (04:55→20:25)
[2022-06-04 04:59] LABS: BASOPHILS % (AUTO) 0.1 % (0.0-3.0); HEMATOCRIT 32.6 % (37.0-47.0); IMMATURE GRANULOCYTE # (AUTO) 0.1 (0.0-1.0); IMMATURE GRANULOCYTE % (AUTO) 0.5 % (0.0-5.0); LYMPHOCYTES # (AUTO) 0.9 K/uL (0.60-3.4); LYMPHOCYTES % (AUTO) 8.5 (10.0-50.0); MEAN CORPUSCULAR HEMOGLOBIN 28.8 pg (27.0-31.0); MEAN CORPUSCULAR HGB CONC 30.7 (31.8-35.4); MEAN CORPUSCULAR VOLUME 93.9 fl (81.0-99.0); MONOCYTES # (AUTO) 0.8 K/uL (0.4-2.0); MONOCYTES % (AUTO) 7.2 (0-10); NEUTROPHILS # (AUTO) 8.7 K/ul (2.0-6.9); NEUTROPHILS % (AUTO) 83.7 % (42.2-75.2); PLATELET COUNT 216 10^3/uL (140-440); RDW COEFFICIENT OF VARIATION 14.5 % (11.6-14.8); RED BLOOD COUNT 3.47 10^6/ul (4.20-5.40); WHITE BLOOD COUNT 10.43 K/ul (4.6-10.2)
[2022-06-04 05:16] LABS: ALANINE AMINOTRANSFERASE 11.2 U/L (0-35); ALBUMIN 3.22 g/dL (3.5-5.0); ALKALINE PHOSPHATASE 66.8 U/L (53-141); ASPARTATE AMINO TRANSFERASE 23.2 U/L (14-36); BILIRUBIN,TOTAL 0.26 mg/dL (0.2-1.3); BLOOD UREA NITROGEN 28.7 mg/dL (7-17); CALCIUM 9.39 mg/dL (8.4-10.2); CARBON DIOXIDE 26.3 mmol/L (22-30.0); CHLORIDE 108.9 mmol/L (98-107); CREATININE 1.28 mg/dL (0.60-1.30); GLUCOSE 118.4 mg/dL (74-106); POTASSIUM 4.37 mmol/L (3.5-5.1); SODIUM 139.9 mmol/L (134.5-145); TOTAL PROTEIN 6.36 g/dL (6.3-8.2)
[2022-06-04] MEDS: PROTONIX PO SCH ×2 (05:38→16:51)
[2022-06-04] MEDS: LASIX TAB PO SCH (05:38)
[2022-06-04] MEDS: CARAFATE PO SCH ×4 (05:39→20:23)
[2022-06-04] MEDS: SYNTHROID PO SCH (05:39)
[2022-06-04] MEDS: VASOTEC PO SCH (08:31)
[2022-06-04] MEDS: CELEXA PO SCH (08:31)
[2022-06-04] MEDS: K-DUR PO SCH (08:31)
[2022-06-04] MEDS: KLONOPIN PO SCH ×2 (08:31→20:23)
[2022-06-04] MEDS: DITROPAN PO SCH (08:31)
[2022-06-04] MEDS: PRAVACHOL PO SCH (08:32)
[2022-06-04] MEDS: TOPROL XL PO SCH (08:32)
[2022-06-04] MEDS: ZYLOPRIM PO SCH (08:32)
[2022-06-04] MEDS: ASPIRIN EC PO SCH (08:32)
[2022-06-04] MEDS: PREDNISONE PO SCH (08:32)
[2022-06-04] MEDS: SODIUM CHLORIDE 1,000 ML IV SCH ×2 (09:53→09:54)
[2022-06-04] MEDS ORDERED: ATARAX PO PRN (15:35)
[2022-06-04] MEDS ORDERED: LEVAQUIN 750 MG/150 ML D5W 750 MG/150 ML BAG IV SCH (21:00)
[2022-06-04] MEDS: SINGULAIR PO SCH (22:16)
[2022-06-05] MEDS: SODIUM CHLORIDE 1,000 ML IV SCH (01:43)
[2022-06-05] MEDS: ALBUTEROL 0.083% NEB NEB SCH ×3 (04:50→14:00)
[2022-06-05 05:15] VITALS: BP 144/70; TEMP 98.3
[2022-06-05 05:36] LABS: BASOPHILS % (AUTO) 0.1 % (0.0-3.0); EOSINOPHILS # (AUTO) 0.1 K/ul (0.0-0.7); EOSINOPHILS % (AUTO) 0.6 % (0.0-7.0); HEMATOCRIT 31.6 % (37.0-47.0); HEMOGLOBIN 9.7 g/dl (12.0-16.0); IMMATURE GRANULOCYTE % (AUTO) 0.3 % (0.0-5.0); LYMPHOCYTES # (AUTO) 1.3 K/uL (0.60-3.4); LYMPHOCYTES % (AUTO) 14.4 (10.0-50.0); MEAN CORPUSCULAR HEMOGLOBIN 29.2 pg (27.0-31.0); MEAN CORPUSCULAR HGB CONC 30.7 (31.8-35.4); MEAN CORPUSCULAR VOLUME 95.2 fl (81.0-99.0); MONOCYTES # (AUTO) 0.9 K/uL (0.4-2.0); MONOCYTES % (AUTO) 10.4 (0-10); NEUTROPHILS # (AUTO) 6.6 K/ul (2.0-6.9); NEUTROPHILS % (AUTO) 74.2 % (42.2-75.2); PLATELET COUNT 207 10^3/uL (140-440); RDW COEFFICIENT OF VARIATION 14.7 % (11.6-14.8); RED BLOOD COUNT 3.32 10^6/ul (4.20-5.40); WHITE BLOOD COUNT 8.86 K/ul (4.6-10.2)
[2022-06-05 05:43] LABS: ALANINE AMINOTRANSFERASE 12.2 U/L (0-35); ALBUMIN 3.09 g/dL (3.5-5.0); ALKALINE PHOSPHATASE 63.5 U/L (53-141); ASPARTATE AMINO TRANSFERASE 19.5 U/L (14-36); BILIRUBIN,TOTAL 0.27 mg/dL (0.2-1.3); BLOOD UREA NITROGEN 33.7 mg/dL (7-17); CALCIUM 8.71 mg/dL (8.4-10.2); CARBON DIOXIDE 27.1 mmol/L (22-30.0); CHLORIDE 108.8 mmol/L (98-107); CREATININE 1.21 mg/dL (0.60-1.30); GLUCOSE 87.9 mg/dL (74-106); POTASSIUM 4.09 mmol/L (3.5-5.1); SODIUM 140.3 mmol/L (134.5-145); TOTAL PROTEIN 6.12 g/dL (6.3-8.2)
[2022-06-05] MEDS: LASIX TAB PO SCH (05:47)
[2022-06-05] MEDS: CARAFATE PO SCH ×2 (05:47→11:09)
[2022-06-05] MEDS: SYNTHROID PO SCH (05:47)
[2022-06-05] MEDS: PROTONIX PO SCH (05:48)
[2022-06-05] MEDS: KLONOPIN PO SCH (08:46)
[2022-06-05] MEDS: TOPROL XL PO SCH (08:47)
[2022-06-05] MEDS: VASOTEC PO SCH (08:47)
[2022-06-05] MEDS: PRAVACHOL PO SCH (08:47)
[2022-06-05] MEDS: ZYLOPRIM PO SCH (08:48)
[2022-06-05] MEDS: DITROPAN PO SCH (08:48)
[2022-06-05] MEDS: ASPIRIN EC PO SCH (08:48)
[2022-06-05] MEDS: PREDNISONE PO SCH (08:49)
[2022-06-05] MEDS: K-DUR PO SCH (08:49)
[2022-06-05] MEDS: CELEXA PO SCH (08:50)
--- NOTE | 2022-06-06 11:01 | ECHO2D ---
Date of Exam: 06/05/2022 Ordering Physician: DR. APOLINAR BARNES Room #: 108 Reason for Echo: SOA, CAD, STENTS 2012, HTN, COPD M-Mode Normal Adult Results LV Dimensions Normal Adult Results AoV Opening excursions >1.6 >1.6 LVEDD-base- 3.5-5.8 4.7 Ao root dimensions 2.0-3.7 3.0 LVESD-base- 3.1-4.6 L. Atrium dimensions 1.9-3.8 4.9 Post. Wall thickness 0.8-1.1 1.1 IV septum (thickness) 0.7-1.2 1.2 Post. Wall excursion 0.72-1.3 NORMAL Septal motion NORMAL Systolic motion R. Ventricular cavity 1.5-2.0 3.9 LVEF 60% 59% Paradoxical septal wall motion NORMAL 2-D : 2-D M Mode Echocardiogram was performed using apical four chamber and left parasternal long and short axis views. Mitral, tricuspid and aortic valves appear to be normal. Contractility of the left ventricle seems to be normal, so is the cavity size. ENLARGED LEFT ATRIAL CAVITY AND RIGHT VENTRICLE CAVITIES. Aortic root appears to be normal. There is no pericardial effusion. There is no thrombus noted in the left ventricle or left atrial cavity. M-MODE: MV: NORMAL AV: NORMAL TV: NORMAL PV: CHAMBER SIZE: ENLARGED RIGHT VENTRICLE AND LEFT ATRIAL CAVITIES WALL MOTION: NORMAL PERICARDIUM: NORMAL INTERPRETATION: 1. BORDERLINE LEFT VENTRICLE HYPERTROPHY 2. ENLARGED RIGHT VENTRICLE AND LEFT ATRIAL CAVITIES 3. NORMAL VALVES 4. MERCED LEFT VENTRICLE SIZE AND LEFT VENTRICLE CONTRACTILITY MTDD
--- NOTE | 2022-06-06 13:03 | OTDC ---
Date of Evaluation:06/02/22 Diagnosis:[Hypoxia, acute confusion] Number of visits:[1] Last Date of Service:[06/03/22] Reason For Discharge:[Discharged home] Discharge Summary:[Pt discharged to home.] DESIRE
--- NOTE | 2022-06-07 14:34 | PN ---
DATE OF SERVICE: 06/05/22 SUBJECTIVE: 87 year old white female hospitalized with hypoxemia and acute confusion. Very likely the patient's confusion was because of taking too many benzodiazepine. In any case the patient's hypoxemia was not noted to be here. Her blood gasses were good in the emergency room. The patient is also noted to have normal urine and being treated for UTI. REVIEW OF SYSTEMS: CONSTITUTIONAL: No night sweats. No fatigue, malaise, lethargy. No fever or chills. Feeling a lot better and wants to go home. HEENT: Eyes: No visual changes. No eye pain. No eye discharge. ENT: No runny nose. No epistaxis. No sinus pain. No sore throat. No odynophagia. No congestion. RESPIRATORY: No cough, no congestion. No hemoptysis. No shortness of breath. CARDIOVASCULAR: No angina symptoms. No CHF symptoms. No atypical chest pain for CAD. No palpitations. No PND. No orthopnea. GASTROINTESTINAL: No abdominal pain. No nausea or vomiting. No diarrhea or constipation. No hematemesis. No hematochezia. GENITOURINARY: No urgency. No frequency. No dysuria. No hematuria. No obstructive symptoms. No discharge. No pain. No significant abnormal bleeding. MUSCULOSKELETAL: No musculoskeletal pain; no joint swelling. NEUROLOGICAL: No headache. No neck pain. No syncope. No seizures. No dizziness. PSYCHIATRIC: Not anxious. No depression. No suicidal thoughts. No homicidal thoughts. SKIN: No rash. No lesions. No wounds. ENDOCRINE: No unexplained weight loss. No weight gain. HEMATOLOGIC/LYMPHATIC: No anemia. No purpura. No petechiae. No prolonged or excessive bleeding. No palpable lymph nodes. PHYSICAL EXAMINATION: VITAL SIGNS: Temperature 98.3, pulse 64, respiratory rate 18, blood pressure 144/70 and pulse ox 94%. HEENT: Head normocephalic, atraumatic. Eyes: Extraocular muscles are intact. Pupils are equal, round and reactive to light and accommodation. Ears: No lesions. Nose appeared normal. Throat: No exudate or erythema. NECK: Supple. No JVD, no carotid bruit. No lymphadenopathy or thyromegaly. LUNGS: Decreased breath sounds but clear to auscultation. Percussion note normal. Chest symmetrical. HEART: S1, S2, no S3. No murmurs. No cyanosis or clubbing. No ascites. Pulses: Dorsalis pedis and posterior tibial pulses +1 to +2 bilaterally. ABDOMEN: Soft. Nontender. Bowel sounds active. No CVA tenderness. No mass felt. EXTREMITIES: No edema. Full range of motion of all extremities, equal. NEUROLOGIC: No focal deficit. Cranial nerves II through XII are grossly intact. No headache. No double vision. SKIN: Not dry. Intact. Turgor - normal. LYMPHATIC: No palpable lymph nodes/no lymphedema. MUSCULOSKELETAL: Normal joints with no swelling. Muscle tone is normal. LABS: Hgb 9.7, hct 31, WBC 8,800 normal differential, creatinine 1.2, BUN 33, potassium 4. ASSESSMENT: 1. UTI seems to be under control 2. Hypoxemia seems to have resolved 3. Confused seems to have subsided PLAN: 1. Echocardiogram was done normal LV contractility enlarged left atrial cavity, valvular structures are normal. 2. We are going to discharge the patient home. 3. On admission the patient had U/A 2+ bacteria with trace esterase. The patient has been treated with Levaquin. We will discharge the patient on Levaquin 250mg PO daily for 5 days. 4. Advised to come back in 5-7 days. TIME SPENT: More than 30 minutes. Plan and coordination of the patient's care discussed in the presence of nurse. DESIRE
--- NOTE | 2022-06-07 14:43 | PN ---
ADMISSION DAY: Level 5 REST OF THEM: Intermediate FINAL DAY: D as in discharge. MTDD
--- NOTE | 2022-06-07 14:43 | DS ---
DATE OF SERVICE: 06/05/22 FINAL DIAGNOSIS: 1. Hypoxemia with confusion on admission, resolved 2. UTI unable to grow any bacteria 3. Coronary artery disease 4. Dementia 5. Depression 6. Hypothyroidism 7. Hypertension 8. Dyslipidemia 9. Congestive heart failure. DISCHARGE INSTRUCTIONS: Discharge the patient home. Continue all the medications. Instruction to come back in 5-7 days on followup. MEDICATIONS AT DISCHARGE: Citalopram Clonazepam Levofloxacin Singulair Pravastatin Allopurinol Pantoprazole Metoprolol Enalapril Furosemide Oxybutynin Metolazone Aspirin NEW PRESCRIPTIONS: Levaquin 250mg daily for 5 days LABS: Hgb 9.7, hct 31, WBC 8,800 normal differential, creatinine 1.2, BUN 33, potassium 4. The patient's cardiac markers were all negative. EKG sinus rhythm. Poor R wave progression, old intraseptal wall SD type of EKG. U/A on admission has 2+ bacteria with trace esterase didn't grow any organisms. HOSPITAL COURSE: 87 year old white female hospitalized with oxygen saturation of 80% at home with confusion. The patient's blood gasses were found to be normal. She was COVID negative. The patient had practically normal blood gasses. Confusion also cleared up. It is very likely that the patient could have taken extra benzodiazepine. In any case the patient though to mix too many medications. She is taken care of by the son and the daughter and also Home Health Care. The patient during the stay in the hospital was given IV Levaquin. She was afebrile and no symptoms of urinary tract infection was noted. Her cardiovascular and respiratory status was stable. Echo showed normal LV contractility, enlarged LA cavity, normal valvular structures. The patient's condition at the time of discharge is stable. TIME SPENT: More than 60 minutes. [facility]
== END 2022-06-05 15:15 | disposition home or self-care (01) | DRG 206 ==
LOC: ED 12:47 → MEDSURG A 16:42
PROVIDERS: ADMIT Internal Medicine; ATTEND Internal Medicine
DX: Z87.891 Personal history of nicotine dependence; I10 Essential (primary) hypertension; N39.0 Urinary tract infection, site not specified; R82.79 Other abnormal findings on microbiological examination of urine; R26.81 Unsteadiness on feet; E03.9 Hypothyroidism, unspecified; Z79.01 Long term (current) use of anticoagulants; Z51.81 Encounter for therapeutic drug level monitoring; R41.0 Disorientation, unspecified; E78.5 Hyperlipidemia, unspecified; M62.81 Muscle weakness (generalized); Z79.899 Other long term (current) drug therapy; Z91.81 History of falling; R09.02 Hypoxemia; F32.A Depression, unspecified; R41.89 Other symptoms and signs involving cognitive functions and awareness; Z20.822 Contact with and (suspected) exposure to COVID-19; J44.1 Chronic obstructive pulmonary disease with (acute) exacerbation; I25.10 Atherosclerotic heart disease of native coronary artery without angina pectoris; Z74.1 Need for assistance with personal care; I50.9 Heart failure, unspecified; Z79.82 Long term (current) use of aspirin; F02.80 Dementia in other diseases classified elsewhere, unspecified severity, without behavioral disturbance, psychotic disturbance, mood disturbance, and anxiety

== ENCOUNTER 2023-04-20 11:30 | Inpatient (IN) ==
[2023-04-20] MEDS ORDERED: SODIUM CHLORIDE 1,000 ML IV STA (11:57)
--- NOTE | 2023-04-20 12:24 | ED.PDOC ---
General ED Provider: Dr. HERMINIO ABERNATHY Chief Complaint: Altered Mental Status Stated Complaint: Patient is brought by EMS with changes in mental status like when she goes when she gets UTI Per daughter who give the history. She further states that she live alone and is visited by her son and her but does not have someone staying there round the clock. Time Seen by Provider: 04/20/23 11:57 Mode of Arrival: Ambulance Information Source: Patient Exam Limitations: No limitations and Altered mental status Primary Care Provider: APOLINAR BARNES MD Nursing and Triage Documentation Reviewed and Agree: Yes Does patient meet sepsis criteria?: No System Inflammatory Response Syndrome: Not Applicable Sepsis Protocol: For patient's 13 years and over: Temp is 96.8 and below OR 101 and greater Pulse >90 BPM Resp >20/minute Acutely Altered Mental Status Are patient's symptoms suggestive of a new infection, such as: -Pneumonia -Skin, Soft Tissue -Endocarditis -UTI -Bone, Joint Infection -Implantable Device -Acute Abdominal Infection -Wound Infection -Meningitis -Blood Stream Catheter Infection -Unknown Review of Systems Review Of Systems Constitutional: Reports No symptoms Respiratory: Reports Shortness of Breath Neurological: Reports Anxiety and Other (confusion and hallucinations) All Other Systems: Reviewed and Negative [facility] Medical History Acute confusion R41.0 - Disorientation, unspecified (ICD-10) Acute kidney injury N17.9 - Acute kidney failure, unspecified (ICD-10) Acute UTI N39.0 - Urinary tract infection, site not specified (ICD-10) TATO (acute kidney injury) N17.9 - Acute kidney failure, unspecified (ICD-10) Anxiety F41.9 - Anxiety disorder, unspecified (ICD-10) CHF (congestive heart failure) I50.9 - Heart failure, unspecified (ICD-10) Closed fracture of distal end of radius S52.509A - UNSP FRACTURE OF THE LOWER END OF UNSP RADIUS, INIT (ICD-10) COPD exacerbation J44.1 - CHRONIC OBSTRUCTIVE PULMONARY DISEASE W (ACUTE) EXACERBATION (ICD- 10) COPD exacerbation J44.1 - Chronic obstructive pulmonary disease with (acute) exacerbation (ICD-10) Depression F32.9 - Major depressive disorder, single episode, unspecified (ICD-10) Diabetes E11.9 - Type 2 diabetes mellitus without complications (ICD-10) Emphysema of lung J43.9 - Emphysema, unspecified (ICD-10) Hypoxia R09.02 - Hypoxemia (ICD-10) Pneumonia J18.9 - PNEUMONIA, UNSPECIFIED ORGANISM (ICD-10) Family History FATHER Cancer Social History Smoking and tobacco status: Former smoker How long ago did patient quit smokin+ YEARS Alcohol intake: never Substance use type: does not use Special karis needs: No Agree to transfusion: Yes Adopted: No Caregiver/support person: No Foster care: No Household members: none Housing: house Marital status: S SINGLE Lives independently: Yes Daycare: no daycare Number of children: 5 service: No residential: No History of recent travel: No Do you think of yourself as: straight/heterosexual Current gender identity: female Seatbelt use: always Drives intoxicated or rides with intoxicated tram driver: No Current diet type/program: low salt Water heater temperature set < 120 degrees: Yes Working smoke detector in home: Yes Fire extinguisher in home: Yes Carbon monoxide detector in home: Yes Surgical History History of bilateral knee replacement Z96.653 - Presence of artificial knee joint, bilateral (ICD-10) History of hysterectomy Z90.710 - Acquired absence of both cervix and uterus (ICD-10) 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 - Presence of coronary angioplasty implant and graft (ICD-10) Female Reproductive History Menstrual Hx Hysterectomy: Yes Hx Tubal Ligation: No Physical Exam Physical Exam Appearance: Reports Ill-appearing Ill-appearing: Mild Pain Distress: None Eyes: Reports JORDAN, EOMI and Conjunctiva clear ENT: Reports Ears normal and Nose normal Neck: Supple Respiratory: Reports Airway patent, Breath sounds clear and Breath sounds equal Cardiovascular: Reports RRR, Pulses normal and No rub GI/: Reports Soft, Nontender and No masses Musculoskeletal: Reports Normal strength, Edema and Other (mild mid lower back tenderness ) Skin: Reports Warm and Dry Neurological: Reports Sensation intact, Motor intact, Alert and Oriented Psychiatric: Reports Affect appropriate and Mood appropriate Interpretation EKG Interpretation EKG Interpretation By: ED Physician Time of EKG #1: 12:52 Rate: Normal Rhythm: Sinus Ectopy: None [place]: NL ST Segment: Normal 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 No active cardiopulmonary disease) Exam Interpreted: Portable CXR Re-Evaluation Re-Evaluation Time of Re-Evaluation: 15:27 Status: Improved Vital Signs Stable: Yes Appearance: NAD Neuro: Alert and Oriented X3 Additional Comments: More alert and less confused Critical Care Note Critical Care Note Total Critical Care Time (mins): 0 Comments: Discussed diagnosis and labs and risk of discharge home with expected worse outcome given that she lives alone. Course Course 04/20/23 12:50 04/20/23 12:50 Orders, Labs, Meds: Lab Review 04/20/23 04/20/23 12:50 13:45 WBC 8.92 RBC 3.45 L Hgb 10.4 L Hct 33.0 L MCV 95.7 MCH 30.1 MCHC 31.5 L RDW Coeff of Michael 13.6 Plt Count 234 Immature Gran % (Auto) 0.3 Neut % (Auto) 78.3 H Lymph % (Auto) 11.4 [place] % (Auto) 9.1 Eos % (Auto) 0.6 Baso % (Auto) 0.3 Neut # (Auto) 7.0 H Lymph # (Auto) 1.0 [place] # (Auto) 0.8 Eos # (Auto) 0.1 Baso # (Auto) 0.0 Immature Gran # (Auto) 0.0 Puncture Site Rbrach Base Excess 0.2 O2 Saturation 81.5 L ABG pH 7.50 H ABG pCO2 30.0 L ABG pO2 41.0 L* ABG HCO3 23.4 ABG Total CO2 24.3 H Bobby Test Pos Hemoglobin 1.0 Oxyhemoglobin 80.8 L Carboxyhemoglobin 6.7 H Total Hemoglobin 11.1 L O2 Delivery Device Cannula Oxygen Liter Flow 1.00 FiO2 % Sodium 136.4 Potassium 5.29 H Chloride 104.3 Carbon Dioxide 28.0 Anion Gap 9.39 BUN 41.8 H Creatinine 2.07 H Estimated GFR (MDRD) 23.00 BUN/Creatinine Ratio 20.19 Glucose 100.1 Lactic Acid 0.79 Calcium 9.52 Total Bilirubin 0.69 AST 27.3 ALT 15.1 Alkaline Phosphatase 84.1 Troponin I < 0.012 NT-Pro-B Natriuret Pep 1190 H Total Protein 7.62 Albumin 4.07 Globulin 3.55 Albumin/Globulin Ratio 1.14 Procalcitonin 0.08 Urine Color Yellow Urine Clarity Clear Urine pH 5.5 Ur Specific [place] 1.020 Urine Protein Trace H Urine Glucose (UA) Negative Urine Ketones Negative Urine Blood Trace-intact H Urine Nitrite Negative Urine Bilirubin Negative Urine Urobilinogen 0.2 Ur Leukocyte Esterase Trace H Urine Microscopic RBC 0-2 Urine Microscopic WBC 0-2 Ur Squamous Epith Cells Not Reportable Orders Category Date Time Status ABG DRAW REQUEST Stat CARDIO 04/20/23 12:50 Completed EKG-(ED ONLY) Stat CARDIO 04/20/23 12:31 Completed ED APPLY O2 .ONCE EMERGENCY 04/20/23 11:57 Active ED NET FISHER APPLIED .ONCE EMERGENCY 04/20/23 11:57 Active ED IV/MEDIPORT/POWERPORT .ONCE EMERGENCY 04/20/23 11:57 Active ED VITAL SIGNS .ONCE EMERGENCY 04/20/23 11:57 Active ABG COOX Stat LAB 04/20/23 12:50 Completed BLOOD CULTURE (ED ONLY) Stat LAB 04/20/23 12:55 Ordered CBC W/ AUTO DIFF Stat LAB 04/20/23 12:50 Completed COMPREHENSIVE METABOLIC PANEL Stat LAB 04/20/23 12:50 Completed LACTIC ACID Stat LAB 04/20/23 12:50 Completed POS BC ID AND JEANINE Stat LAB 04/20/23 12:58 Received PROBNP ED [NT-PROBNP(ED)] Stat LAB 04/20/23 12:50 Completed PROCALCITONIN Stat LAB 04/20/23 12:50 Completed TROPONIN I Stat LAB 04/20/23 12:50 Completed URINALYSIS C & S IF INDICATED Stat LAB 04/20/23 13:45 Completed 0.9 % Sodium Chloride [Saline Flush] Meds 04/20/23 11:57 Active 1 syr IVF PRN PRN Sodium Chloride 0.9% [Sodium Chloride] 1,000 ml Meds 04/20/23 11:57 Discontinued IV 75 mls/hr CHEST, 1V AP ONLY Stat RADS 04/20/23 11:[address] HEAD W/O CONTRAST Stat RADS 04/20/23 14:58 Completed Medications Generic Name Dose Route Start Last Admin Trade Name Freq PRN Reason Stop Dose Admin Acetaminophen 650 mg 04/20/23 19:06 Acetaminophen 325 Mg Tablet PO Q4H PRN Mild Pain Sodium Chloride 1,000 mls @ 75 mls/hr 04/20/23 19:30 04/20/23 20:30 Sodium Chloride IV 75 mls/hr .[id number] KANDACE Administration Nystatin 1 applic 04/20/23 21:00 04/20/23 21:09 Nystatin 15 Gm Powder TP 1 applic BID KANDACE Administration Ondansetron HCl 4 mg 04/20/23 19:06 Ondansetron Hcl/Pf 4 Mg/2 Ml Sdv IVP Q6H PRN Nausea / Vomiting Sodium Chloride 1 syr 04/20/23 11:57 04/20/23 20:30 0.9% Sodium Chloride 10 Ml Disp.Syrin IVF 1 syr PRN PRN Administration To flush IV Discontinued Medications Generic Name Dose Route Start Last Admin Trade Name Freq PRN Reason Stop Dose Admin Sodium Chloride 1,000 mls @ 75 mls/hr 04/20/23 11:57 04/20/23 15:27 Sodium Chloride IV 04/21/23 01:16 75 mls/hr .[id number] STA Administration Vital Signs: Temp Pulse Resp BP Pulse Ox 04/20/23 13:30 72 17 148/63 H 96 04/20/23 12:30 70 18 139/48 L 96 04/20/23 11:32 98.2 F 71 20 133/68 96 Discharge Plan Discharge Patient Disposition: PLACED OBSERVATION Discharge Problem: Acute kidney injury, CHF (congestive heart failure), Altered mental status, Chronic hypoxemic respiratory failure, Leg edema Did you review [place] [employer] for ALL controlled substances?: Not Applicable ED Provider: HERMINIO ABERNATHY Condition: Stable Physician Progress Note: []
--- NOTE | 2023-04-20 12:28 | DI ---
EXAM: CHEST ONE-VIEW HISTORY: Mental status change COMPARISON: June 02 2022 FINDINGS: Cardiac silhouette and mediastinum are normal. There is no pulmonary infiltrate.There is no pleural effusion. Skeletal structures unremarkable IMPRESSION: Negative chest. No active cardiopulmonary disease
[2023-04-20 12:59] LABS: BASOPHILS % (AUTO) 0.3 % (0.0-3.0); EOSINOPHILS # (AUTO) 0.1 K/ul (0.0-0.7); EOSINOPHILS % (AUTO) 0.6 % (0.0-7.0); HEMOGLOBIN 10.4 g/dl (12.0-16.0); IMMATURE GRANULOCYTE % (AUTO) 0.3 % (0.0-5.0); LYMPHOCYTES % (AUTO) 11.4 (10.0-50.0); MEAN CORPUSCULAR HEMOGLOBIN 30.1 pg (27.0-31.0); MEAN CORPUSCULAR HGB CONC 31.5 (31.8-35.4); MEAN CORPUSCULAR VOLUME 95.7 fl (81.0-99.0); MONOCYTES # (AUTO) 0.8 K/uL (0.4-2.0); MONOCYTES % (AUTO) 9.1 (0-10); NEUTROPHILS % (AUTO) 78.3 % (42.2-75.2); PLATELET COUNT 234 10^3/uL (140-440); RDW COEFFICIENT OF VARIATION 13.6 % (11.6-14.8); RED BLOOD COUNT 3.45 10^6/ul (4.20-5.40); WHITE BLOOD COUNT 8.92 K/ul (4.6-10.2)
[2023-04-20 13:06] LABS: ABG O2 HGB 80.8 % (95-100); BEecf 0.2 (-2.0-3.0); COHb 6.7 (0.5-1.5); HCO3 23.4 (21-28); TCO2 24.3 (19-24); sO2 81.5 % (94-98); tHb 11.1 g/dl (11.7-17.4)
[2023-04-20 13:12] LABS: ALANINE AMINOTRANSFERASE 15.1 U/L (0-35); ALBUMIN 4.07 g/dL (3.5-5.0); ALKALINE PHOSPHATASE 84.1 U/L (53-141); ASPARTATE AMINO TRANSFERASE 27.3 U/L (14-36); BILIRUBIN,TOTAL 0.69 mg/dL (0.2-1.3); BLOOD UREA NITROGEN 41.8 mg/dL (7-17); CALCIUM 9.52 mg/dL (8.4-10.2); CHLORIDE 104.3 mmol/L (98-107); CREATININE 2.07 mg/dL (0.60-1.30); GLUCOSE 100.1 mg/dL (74-106); POTASSIUM 5.29 mmol/L (3.5-5.1); SODIUM 136.4 mmol/L (134.5-145); TOTAL PROTEIN 7.62 g/dL (6.3-8.2)
[2023-04-20 13:25] LABS: TROPONIN I < 0.012 ng/ml (0.0000-0.120)
[2023-04-20 13:54] LABS: BILIRUBIN,URINE Negative (NEGATIVE); CLARITY,URINE Clear (CLEAR); COLOR,URINE Yellow (YELLOW); GLUCOSE, URINE (UA) Negative (NEGATIVE); KETONES,URINE Negative (NEGATIVE); LEUKOCYTE ESTERASE ,URINE Trace (NEGATIVE); NITRITE,URINE Negative (NEGATIVE); PH,URINE 5.5 (5-9); PROTEIN,URINE Trace (NEGATIVE); URINE, BLOOD Trace-intact (NEGATIVE); UROBILINOGEN,URINE 0.2 (0.2)
[2023-04-20 14:01] LABS: URINE RBC, MICROSCOPIC 0-2 (0-2); URINE WBC, MICROSCOPIC 0-2 (0-2)
--- NOTE | 2023-04-20 16:23 | CT ---
EXAM: CT HEAD WITHOUT CONTRAST 04/20/2023. SAGITTAL AND CORONAL REFORMATTED IMAGES OBTAINED HISTORY: Mental status changes COMPARISON: 06/02/2022 FINDINGS: There is no evidence of intracranial hemorrhage. The midline is maintained. There is no h ydrocephalus. Generalized atrophy. Chronic small vessel ischemic change. Chronic benign bilateral basal ganglia calcification. Chronic benign right frontal periventricular calcification. No cerebel lar tonsillar ectopia. Evaluation of the calvarium shows no fracture. The mastoid air cells are nor sonny pneumatized. IMPRESSION: No acute intracranial abnormality. Stable chronic findings. No acute change. All CT scans are performed using dose optimization techniques as appropriate to the performed exam an d include at least one of the following: Automated exposure control, adjustment of the mA and/or kV according t o size, and the use of iterative reconstruction technique.
[2023-04-20 18:07] VITALS: BMI 4780.4
[2023-04-20] MEDS ORDERED: ZOFRAN 4 MG/2 ML IVP PRN (19:06)
[2023-04-20] MEDS ORDERED: TYLENOL PO PRN (19:06)
[2023-04-20] MEDS: SODIUM CHLORIDE 1,000 ML IV SCH (20:30)
[2023-04-20] MEDS: NYSTOP POWDER TP SCH (21:09)
[2023-04-21 06:40] LABS: BASOPHILS % (AUTO) 0.5 % (0.0-3.0); EOSINOPHILS # (AUTO) 0.1 K/ul (0.0-0.7); EOSINOPHILS % (AUTO) 1.7 % (0.0-7.0); HEMATOCRIT 31.8 % (37.0-47.0); HEMOGLOBIN 9.8 g/dl (12.0-16.0); IMMATURE GRANULOCYTE % (AUTO) 0.2 % (0.0-5.0); LYMPHOCYTES # (AUTO) 1.2 K/uL (0.60-3.4); LYMPHOCYTES % (AUTO) 20.2 (10.0-50.0); MEAN CORPUSCULAR HGB CONC 30.8 (31.8-35.4); MEAN CORPUSCULAR VOLUME 97.2 fl (81.0-99.0); MONOCYTES # (AUTO) 0.6 K/uL (0.4-2.0); MONOCYTES % (AUTO) 9.8 (0-10); NEUTROPHILS % (AUTO) 67.6 % (42.2-75.2); PLATELET COUNT 216 10^3/uL (140-440); RDW COEFFICIENT OF VARIATION 13.6 % (11.6-14.8); RED BLOOD COUNT 3.27 10^6/ul (4.20-5.40); WHITE BLOOD COUNT 5.84 K/ul (4.6-10.2)
[2023-04-21 06:46] LABS: ALANINE AMINOTRANSFERASE 15.2 U/L (0-35); ALBUMIN 3.39 g/dL (3.5-5.0); ALKALINE PHOSPHATASE 79.7 U/L (53-141); ASPARTATE AMINO TRANSFERASE 24.2 U/L (14-36); BILIRUBIN,TOTAL 0.36 mg/dL (0.2-1.3); BLOOD UREA NITROGEN 34.2 mg/dL (7-17); CALCIUM 8.94 mg/dL (8.4-10.2); CARBON DIOXIDE 27.3 mmol/L (22-30.0); CHLORIDE 109.1 mmol/L (98-107); CREATININE 1.45 mg/dL (0.60-1.30); GLUCOSE 125.1 mg/dL (74-106); POTASSIUM 4.78 mmol/L (3.5-5.1); SODIUM 139.4 mmol/L (134.5-145); TOTAL PROTEIN 6.48 g/dL (6.3-8.2)
[2023-04-21] MEDS: VANCOMYCIN 750 MG/150 ML BAG 750 MG/150 ML BAG IV SCH (09:48)
[2023-04-21] MEDS: NYSTOP POWDER TP SCH ×2 (09:48→20:29)
[2023-04-21] MEDS ORDERED: DIFLUCAN PO ONE (11:29)
--- NOTE | 2023-04-21 11:48 | PCM ---
Date of Service Date Seen by Provider: 04/21/23 Time Seen by Provider: 08:15 Admit Day/Time Admission Date: 04/20/23 Admission Time: 17:32 Reason for Admission Chief Complaint: Altered mental status Hospital Provider Hospital Provider: DANNA TUBBS PA-C, [facility] [place] Primary Care Physician Primary Care Physician: APOLINAR BARNES MD History of Present Illness History of Present Illness: Patient is a 88 year old female with pmhx of chf, chronic respiratory failure, copd, depression, hypothyroidism, CAD, dementia, CKD, gout who presented to ER from home for confusion, hallucinations, and hypoxia. Patient wears 2L at night at baseline. She was found in her home very confused, seeing people who weren't there. She was found by EMS to be hypoxic, unclear how hypoxic. ABG in ER showed PO2 of 41. CXR negative. Patient recovered well with 2L. CT head negative. Labs unremarkable except for Cr bumped at 2 and BUN elevated as well. UA negative for infection. On my evaluation this morning patient is alert and oriented x3. She is able to contribute some to her pmhx. She is able to recall that she usually has a UTI when she gets confused like that. She denies symptoms. 1 out of 4 blood culture bottles has become positive for gram positive rods today. Case Discussed With Case Discussed With: Patient's case was discussed with the ER Physicians, Dr. Serrano. PSYCHIATRIC Medical History Acute confusion R41.0 - Disorientation, unspecified (ICD-10) Acute kidney injury N17.9 - Acute kidney failure, unspecified (ICD-10) Acute UTI N39.0 - Urinary tract infection, site not specified (ICD-10) TATO (acute kidney injury) N17.9 - Acute kidney failure, unspecified (ICD-10) Anxiety F41.9 - Anxiety disorder, unspecified (ICD-10) CHF (congestive heart failure) I50.9 - Heart failure, unspecified (ICD-10) Closed fracture of distal end of radius S52.509A - UNSP FRACTURE OF THE LOWER END OF UNSP RADIUS, INIT (ICD-10) COPD exacerbation J44.1 - CHRONIC OBSTRUCTIVE PULMONARY DISEASE W (ACUTE) EXACERBATION (ICD- 10) COPD exacerbation J44.1 - Chronic obstructive pulmonary disease with (acute) exacerbation (ICD-10) Depression F32.9 - Major depressive disorder, single episode, unspecified (ICD-10) Diabetes E11.9 - Type 2 diabetes mellitus without complications (ICD-10) Emphysema of lung J43.9 - Emphysema, unspecified (ICD-10) Hypoxia R09.02 - Hypoxemia (ICD-10) Pneumonia J18.9 - PNEUMONIA, UNSPECIFIED ORGANISM (ICD-10) Surgical History History of bilateral knee replacement Z96.653 - Presence of artificial knee joint, bilateral (ICD-10) History of hysterectomy Z90.710 - Acquired absence of both cervix and uterus (ICD-10) 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 - Presence of coronary angioplasty implant and graft (ICD-10) Family History FATHER Cancer Social History Smoking and tobacco status: Former smoker How long ago did patient quit smokin+ YEARS Alcohol intake: never Substance use type: does not use Special karis needs: No Agree to transfusion: Yes Adopted: No Caregiver/support person: No Foster care: No Household members: none Housing: house Marital status: S SINGLE Lives independently: Yes Daycare: no daycare Number of children: 5 service: No MCFP: No History of recent travel: No Do you think of yourself as: straight/heterosexual Current gender identity: female Seatbelt use: always Drives intoxicated or rides with intoxicated tow truck driver: No Current diet type/program: low salt Water heater temperature set < 120 degrees: Yes Working smoke detector in home: Yes Fire extinguisher in home: Yes Carbon monoxide detector in home: Yes Allergies Allergies Allergy/AdvReac Type Severity Reaction Status Date / Time hydrocodone [From Lortab] AdvReac Unknown Verified 04/20/23 11:31 meperidine HCl [From Demerol] AdvReac Unknown Verified 04/20/23 11:31 pregabalin [From Lyrica] AdvReac Unknown Verified 04/20/23 11:31 Current Medications Home Medications aspirin 81 mg tablet 81 mg PO DAILY 06/02/22 [History Confirmed 04/20/23 Last Taken Unknown] enalapril maleate 10 mg tablet (Vasotec) 10 mg PO QDAY #90 tabs 02/06/23 [Rx Confirmed 04/20/23 Last Taken Unknown] potassium chloride 10 mEq tablet,extended release(part/cryst) 10 meq PO QDAY #90 tabs 02/06/23 [Rx Confirmed 04/20/23 Last Taken Unknown] cholecalciferol (vitamin D3) 1,250 mcg (50,000 unit) capsule 1,250 mcg PO QWEEK #12 caps 02/07/23 [Rx Confirmed 04/20/23 Last Taken Unknown] allopurinol 100 mg tablet See Rx Instructions .Route .COMPLEX #30 tabs 03/03/23 [Rx Confirmed 04/20/23 Last Taken Unknown] citalopram 20 mg tablet See Rx Instructions .Route .COMPLEX #30 tabs 03/03/23 [Rx Confirmed 04/20/23 Last Taken Unknown] clonazepam 0.5 mg tablet 0.5 mg PO BID PRN anxiety #60 tabs 03/03/23 [Rx Confirmed 04/20/23 Last Taken Unknown] furosemide 20 mg tablet See Rx Instructions .Route .COMPLEX #30 tabs 03/03/23 [Rx Confirmed 04/20/23 Last Taken Unknown] levothyroxine 75 mcg tablet See Rx Instructions .Route .COMPLEX #30 tabs 03/03/23 [Rx Confirmed 04/20/23 Last Taken Unknown] metoprolol succinate 50 mg tablet,extended release 24 hr See Rx Instructions .Route .COMPLEX #30 tabs 03/03/23 [Rx Confirmed 04/20/23 Last Taken Unknown] montelukast 10 mg tablet See Rx Instructions .Route .COMPLEX #30 tabs 03/03/23 [Rx Confirmed 04/20/23 Last Taken Unknown] nystatin 100,000 unit/gram topical powder See Rx Instructions .Route .COMPLEX #60 grams 03/03/23 [Rx Confirmed 04/20/23 Last Taken Unknown] oxybutynin chloride 5 mg tablet,extended release 24 hr See Rx Instructions .Route .COMPLEX #30 tabs 03/03/23 [Rx Confirmed 04/20/23 Last Taken Unknown] pantoprazole 40 mg tablet,delayed release See Rx Instructions .Route .COMPLEX #60 tabs 03/03/23 [Rx Confirmed 04/20/23 Last Taken Unknown] polysaccharide iron complex 150 mg iron capsule (iFerex 150) See Rx Instructions .Route .COMPLEX #30 caps 03/03/23 [Rx Confirmed 04/20/23 Last Taken Unknown] pravastatin 80 mg tablet See Rx Instructions .Route .COMPLEX #30 tabs 03/03/23 [Rx Confirmed 04/20/23 Last Taken Unknown] sucralfate 1 gram tablet See Rx Instructions .Route .COMPLEX #120 caps 03/03/23 [Rx Confirmed 04/20/23 Last Taken Unknown] tramadol 50 mg tablet 50 mg PO TID PRN pain #90 tabs 03/03/23 [Rx Confirmed 04/20/23 Last Taken Unknown] triamcinolone acetonide 0.1 % topical cream See Rx Instructions .Route .COMPLEX #80 grams 03/03/23 [Rx Confirmed 04/20/23 Last Taken Unknown] Home Acetaminophen (Acetaminophen 325 Mg Tablet) 650 mg PO Q4H PRN PRN Reason: Mild Pain Allopurinol (Allopurinol 100 Mg Tablet) 100 mg PO DAILY [facility] Aspirin (Aspirin 81 Mg Tablet.Dr) 81 mg PO DAILYWM [facility] Citalopram Hydrobromide (Citalopram Hydrobromide 20 Mg Tablet) 20 mg PO DAILY [facility] Clonazepam (Clonazepam 0.5 Mg Tablet) 0.5 mg PO BID PRN PRN Reason: Anxiety Enalapril Maleate (Enalapril Maleate 5 Mg Tablet) 10 mg PO DAILY [facility] Enoxaparin Sodium (Enoxaparin Sodium 30 Mg/0.3 Ml Syr) 30 mg SUBCUT DAILY [facility] Last Admin: 04/21/23 15:11 Dose: 30 mg Furosemide (Furosemide 20 Mg Tablet) 20 mg PO QDAC [facility] VANCOMYCIN/WATER FOR INJ (PEG) (Vancomycin 750 Mg/150 Ml Bag) 750 mg in 150 mls @ 150 mls/hr IV DAILY [facility] Stop: 04/24/23 09:59 Last Admin: 04/21/23 09:48 Dose: 150 mls/hr Levothyroxine Sodium (Levothyroxine Sodium 75 Mcg Tablet) 75 mcg PO QDAC [facility] Metoprolol Succinate (Metoprolol Succinate 50 Mg Tab.Er.24h) 50 mg PO DAILY [facility] Montelukast Sodium (Montelukast Sodium 10 Mg Tablet) 10 mg PO DAILY [facility] Nystatin (Nystatin 15 Gm Powder) 1 applic TP BID [facility] Last Admin: 04/21/23 09:48 Dose: 1 applic Ondansetron HCl (Ondansetron Hcl/Pf 4 Mg/2 Ml Sdv) 4 mg IVP Q6H PRN PRN Reason: Nausea / Vomiting Oxybutynin Chloride (Oxybutynin Chloride 5 Mg Tab.Er.24) 5 mg PO DAILY [facility] Pantoprazole Sodium (Pantoprazole Sodium 40 Mg Tablet.Dr) 40 mg PO BIDAC [facility] Pravastatin Sodium (Pravastatin Sodium 40 Mg Tablet) 40 mg PO DAILY [facility] Sodium Chloride (0.9% Sodium Chloride 10 Ml Disp.Syrin) 1 syr IVF PRN PRN PRN Reason: To flush IV Last Admin: 04/20/23 20:30 Dose: 1 syr Sucralfate (Sucralfate 1 Gm Tablet) 1 gm PO ACHS [facility] Discontinued Medications Fluconazole (Fluconazole 150 Mg Tablet) 150 mg PO ONCE ONE Stop: 04/21/23 11:30 Last Admin: 04/21/23 11:43 Dose: 150 mg Sodium Chloride (Sodium Chloride) 1,000 mls @ 75 mls/hr IV .[id number] STA Stop: 04/21/23 01:16 Last Admin: 04/20/23 15:27 Dose: 75 mls/hr Sodium Chloride (Sodium Chloride) 1,000 mls @ 75 mls/hr IV .[id number] [facility] Last Admin: 04/21/23 12:55 Dose: Not Given Review of Systems Constitutional: Denies Fever, Chills or Weakness Head: Reports Normocephalic and Atraumatic Eyes: Denies Vision Changes Ears: Denies Pain or Drainage Nose: Denies Post Nasal Drip or Congestion Mouth: Denies Sores Throat: Denies Sore Throat or Difficulty Swallowing Cardiovascular: Denies Chest pain, Chest Pressure or Edema Respiratory: Denies Cough or Shortness of air Gastrointestinal: Denies Nausea, Vomiting, Diarrhea or Abdominal pain Genitourinary: Denies Dysuria or Frequency Dermatologic: Reports Rashes (+left breast and skin folds ) Neurological: Reports Memory Loss and Other (+hallucinations ); Denies Headache, Dizziness, Syncope, Loss of Conciousness or Speech difficulty Physical examination Most Recent Vital Signs: Most Recent Vital Signs Temperature 96.9 F L 04/21/23 05:52 Temperature Source Temporal Artery Scan 04/21/23 05:52 Temperature Source Infrared 04/20/23 11:32 Pulse Rate 62 04/21/23 05:52 Respiratory Rate 18 04/21/23 08:00 Blood Pressure 151/60 H 04/21/23 05:52 Blood Pressure Mean 90 04/21/23 05:52 Blood Pressure Left Arm 143/64 04/20/23 17:57 Blood Pressure Location Right Arm 04/21/23 05:52 Blood Pressure Position Sitting 04/21/23 05:52 O2 Sat by Pulse Oximetry 98 04/21/23 05:52 Oxygen Delivery Method Nasal Cannula 04/21/23 08:00 Oxygen Flow Rate 2 04/21/23 08:00 Height 5 ft 1 in 04/21/23 09:06 Weight 170 lb 04/20/23 17:57 Telemetry Type Bedside Monitor 04/21/23 06:52 Telemetry Monitoring Continues 04/21/23 06:52 Telemetry Heart Rate 65 04/21/23 06:52 Telemetry SPO2 94 07/20/16 01:00 EKG HI Interval 0.18 04/21/23 06:52 EKG QRS Interval 0.08 04/21/23 06:52 Telemetry Strip Reading SR 04/21/23 06:52 Appearance: Positive Well-appearing, Well-nourished, No Apparent Distress and Alert and Oriented x3 Skin: Positive Rashes (yeasty rash under left breast and in skin folds. No secondary bacterial infection noted. ) HEENT: Positive Normocephalic and Atraumatic Neck: Positive Supple and Midline Trachea Chest/Lungs: Positive Symmetrical With Equal Breath Sounds and Clear to Auscultation Bilaterally; Negative Rales, Rhonci or Wheezes Heart: Positive RRR GI/: Positive Soft, Nontender, Bowel Sounds Normal and No Distention Extremities: Positive Intact Peripheral Pulses; Negative Edema Neurological: Positive Cranial Nerves Intact, Alert, Oriented and Muscle Strength 5/5 in Upper and Lower Extremities Bilaterally Psychiatric: Positive Oriented x4, Appropriate Mood and Appropriate Affect Labs This Visit Labs This Visit: Labs This Visit 04/20/23 04/20/23 04/21/23 12:50 13:45 06:15 WBC 8.92 5.84 RBC 3.45 L 3.27 L Hgb 10.4 L 9.8 L Hct 33.0 L 31.8 L MCV 95.7 97.2 MCH 30.1 30.0 MCHC 31.5 L 30.8 L RDW Coeff of Michael 13.6 13.6 Plt Count 234 216 Immature Gran % (Auto) 0.3 0.2 Neut % (Auto) 78.3 H 67.6 Lymph % (Auto) 11.4 20.2 [place] % (Auto) 9.1 9.8 Eos % (Auto) 0.6 1.7 Baso % (Auto) 0.3 0.5 Neut # (Auto) 7.0 H 4.0 Lymph # (Auto) 1.0 1.2 [place] # (Auto) 0.8 0.6 Eos # (Auto) 0.1 0.1 Baso # (Auto) 0.0 0.0 Immature Gran # (Auto) 0.0 0.0 Puncture Site Rbrach Base Excess 0.2 O2 Saturation 81.5 L ABG pH 7.50 H ABG pCO2 30.0 L ABG pO2 41.0 L* ABG HCO3 23.4 ABG Total CO2 24.3 H Bobby Test Pos Hemoglobin 1.0 Oxyhemoglobin 80.8 L Carboxyhemoglobin 6.7 H Total Hemoglobin 11.1 L O2 Delivery Device Cannula Oxygen Liter Flow 1.00 FiO2 % Sodium 136.4 139.4 Potassium 5.29 H 4.78 Chloride 104.3 109.1 H Carbon Dioxide 28.0 27.3 Anion Gap 9.39 7.78 BUN 41.8 H 34.2 H Creatinine 2.07 H 1.45 H D Estimated GFR (MDRD) 23.00 34.00 BUN/Creatinine Ratio 20.19 23.58 Glucose 100.1 125.1 H Lactic Acid 0.79 Calcium 9.52 8.94 Total Bilirubin 0.69 0.36 AST 27.3 24.2 ALT 15.1 15.2 Alkaline Phosphatase 84.1 79.7 Troponin I < 0.012 NT-Pro-B Natriuret Pep 1190 H Total Protein 7.62 6.48 Albumin 4.07 3.39 L Globulin 3.55 3.09 Albumin/Globulin Ratio 1.14 1.09 Procalcitonin 0.08 TSH Urine Color Yellow Urine Clarity Clear Urine pH 5.5 Ur Specific [place] 1.020 Urine Protein Trace H Urine Glucose (UA) Negative Urine Ketones Negative Urine Blood Trace-intact H Urine Nitrite Negative Urine Bilirubin Negative Urine Urobilinogen 0.2 Ur Leukocyte Esterase Trace H Urine Microscopic RBC 0-2 Urine Microscopic WBC 0-2 Ur Squamous Epith Cells Not Reportable 04/21/23 08:39 WBC RBC Hgb Hct MCV MCH MCHC RDW Coeff of Michael Plt Count Immature Gran % (Auto) Neut % (Auto) Lymph % (Auto) [place] % (Auto) Eos % (Auto) Baso % (Auto) Neut # (Auto) Lymph # (Auto) [place] # (Auto) Eos # (Auto) Baso # (Auto) Immature Gran # (Auto) Puncture Site Base Excess O2 Saturation ABG pH ABG pCO2 ABG pO2 ABG HCO3 ABG Total CO2 Bobby Test Hemoglobin Oxyhemoglobin Carboxyhemoglobin Total Hemoglobin O2 Delivery Device Oxygen Liter Flow FiO2 % Sodium Potassium Chloride Carbon Dioxide Anion Gap BUN Creatinine Estimated GFR (MDRD) BUN/Creatinine Ratio Glucose Lactic Acid Calcium Total Bilirubin AST ALT Alkaline Phosphatase Troponin I NT-Pro-B Natriuret Pep Total Protein Albumin Globulin Albumin/Globulin Ratio Procalcitonin TSH 0.504 Urine Color Urine Clarity Urine pH Ur Specific [place] Urine Protein Urine Glucose (UA) Urine Ketones Urine Blood Urine Nitrite Urine Bilirubin Urine Urobilinogen Ur Leukocyte Esterase Urine Microscopic RBC Urine Microscopic WBC Ur Squamous Epith Cells Microbiology This Visit 04/20/23 12:55 Blood Blood Culture - Preliminary Imaging Imaging: EXAM: CT HEAD WITHOUT CONTRAST 04/20/2023. SAGITTAL AND CORONAL REFORMATTED IMAGES OBTAINED HISTORY: Mental status changes COMPARISON: 06/02/2022 FINDINGS: There is no evidence of intracranial hemorrhage. The midline is maintained. There is no hydrocephalus. Generalized atrophy. Chronic small vessel ischemic change. Chronic benign bilateral basal ganglia calcification. Chronic benign right frontal periventricular calcification. No cerebellar tonsillar ectopia. Evaluation of the calvarium shows no fracture. The mastoid air cells are normally pneumatized. IMPRESSION: No acute intracranial abnormality. Stable chronic findings. No acute change. EXAM: CHEST ONE-VIEW HISTORY: Mental status change COMPARISON: June 02 2022 FINDINGS: Cardiac silhouette and mediastinum are normal. There is no pulmonary infiltrate.There is no pleural effusion. Skeletal structures unremarkable IMPRESSION: Negative chest. No active cardiopulmonary disease Review Statement Review Statement: I have independently reviewed and interpreted the labs/EKGs/imaging that were ordered by the ER provider. I have reviewed all outside records that are a vailable currently in our EMR including imaging/notes/labs from previous visits. Plan Plan: 1. Bacteremia - Positive blood culture showing gram positive rods. Start vanc. UA and CXR negative. Infection markers negative. Will await C&S. 2. Acute hypoxic respiratory failure with associated encephalothy - suspect due to low O2. PO2 41 on ABG. Encephalopathy improved with O2 supplementation. At baseline today. Likely needs to wear her O2 all day. 3. TATO, stage I - Hydrated overnight, resolved. Stop fluids. Continue home la six. Eating and drinking well. 4. Hyperkalemia in setting of dehydration - Resolved. Hold potassium supplement today. 5. COPD, not in exacerbation - Continue home meds and O2. 6. CAD - Cont asa 7. Hypertension - Continue home meds 8. Hyperlipidemia - Continue home meds 9. Hypothyroidism - TSH normal. Continue home meds 10. Candidasis of skin - Continue nystatin, diflucan 150 mg x1 given. 11. GERD - Continue home meds 12. OAB - Continue oxybutynin DVT Prophylaxis: Lovenox Time Spent: Greater than 80 minutes spent with patient, 50% of the time spent with this patient was devoted to counseling and coordination of care. [facility] minutes spent discussing advance care planning. DNR Admit to: Obs made inpatient today due to bacteremia Discussed Plan of Care with Dr. Marlin Barnes. Medications Medication Orders: Medications Ordered Category Date Time Status 0.9 % Sodium Chloride [Saline Flush] Meds 04/20/23 11:57 Active 1 syr IVF PRN PRN Acetaminophen [Tylenol] Meds 04/20/23 19:06 Active 650 mg PO Q4H PRN Nystatin [Nystop Powder] Meds 04/20/23 21:00 Active 1 applic TP BID Ondansetron HCl/Pf [Zofran 4 mg/2 ml] Meds 04/20/23 19:06 Active 4 mg IVP Q6H PRN Sodium Chloride 0.9% [Sodium Chloride] 1,000 ml Meds 04/20/23 19:30 Active IV 75 mls/hr Vancomycin/Water For Inj (Peg) [Vancomycin 750 mg/150 Meds 04/21/23 10:00 Active ml Bag] 750 mg in 150 ml IV DAILY
[2023-04-21 12:44] LABS: CREATINE KINASE 118.9 U/L (30-135)
[2023-04-21] MEDS: SODIUM CHLORIDE 1,000 ML IV SCH (12:55)
[2023-04-21 13:17] LABS: CREATINE KINASE MB 2.67 ng/ml (0.0-2.38)
[2023-04-21] MEDS ORDERED: KLONOPIN PO PRN (13:36)
[2023-04-21] MEDS ORDERED: LOVENOX SUBCUT SCH ×2 (14:05→14:30)
[2023-04-21] MEDS: PROTONIX PO SCH (16:41)
[2023-04-21] MEDS: CARAFATE PO SCH ×2 (16:41→20:29)
--- NOTE | 2023-04-21 21:26 | CT ---
EXAM: CHEST CT WITH INTRAVENOUS CONTRAST HISTORY: Bacteremia TECHNIQUE: CT acquisition of the chest from the thoracic inlet to the upper abdomen following IV cont rast administration. 2-D coronal and sagittal reformatted images were obtained from the axial source images. CT Dose Reduction Techniques Performed: Yes. COMPARISON: 05/04/2021 FINDINGS: Lung Parenchyma and Airways: No focal consolidation or interstitial disease. Minimal left lower lobe scarring. No suspicious pulmonary nodule. No pleural effusion or thickening. No pneumothorax. Thoracic Inlet, Mediastinum, and Maegan: No mass. No lymphadenopathy. Heart, Vessels, and Pericardium: The main pulmonary artery is normal caliber. There is no central pu lmonary embolism. The thoracic aorta is not dilated. The heart chambers are not enlarged. There is no pericardial effusion or thickening. There are coronary calcifications. Bones and Soft Tissues: Visualized bones are within normal limits. Chest wall soft tissues are unrem arkable. Upper Abdomen: Small hiatal hernia. CT abdomen will be reported separately. IMPRESSION: 1. No pneumonia or acute intrathoracic or pulmonary process. All CT scans are performed using dose optimization techniques as appropriate to the performed exam an d include at least one of the following: Automated exposure control, adjustment of the mA and/or kV according t o size, and the use of iterative reconstruction technique.
--- NOTE | 2023-04-21 21:35 | CT ---
EXAM: CT ABDOMEN AND PELVIS WITH CONTRAST HISTORY: Bacteremia TECHNIQUE: CT acquisition of the abdomen and pelvis from the lower thorax through the pelvis followin g IV contrast administration. 2-D coronal and sagittal reformatted images were obtained from the axi al source images. CT Dose Reduction Techniques Performed: Yes. COMPARISON: 05/04/2020 FINDINGS: Lower Thorax: Reported separately Liver: No mass. Normal morphology. Biliary: Gallbladder is thick-walled and contracted. No biliary dilatation. Pancreas: No mass or evidence of pancreatitis. No duct dilation. Spleen: No mass. No splenomegaly. Calcified splenic granulomas. Adrenals: No mass. Kidneys/Ureters: No renal mass. No calculus or hydronephrosis. GI Tract: No bowel dilation. No bowel wall thickening. There is diverticulosis. Peritoneal Cavity: No ascites. No free air. No abdominal abscess. Retroperitoneum: No mass or fluid collection. Lymph Nodes: No lymphadenopathy. Vasculature: No aortic aneurysm. Pelvis: There has been hysterectomy. Bladder is normal. Bones/Soft Tissues: No fracture or lytic lesion. Visualized abdominal wall soft tissues are unremarka ble. IMPRESSION: 1. No acute inflammatory process in the abdomen or pelvis. Chronic granulomatous disease. Divertic ulosis. Hysterectomy. All CT scans are performed using dose optimization techniques as appropriate to the performed exam an d include at least one of the following: Automated exposure control, adjustment of the mA and/or kV according t o size, and the use of iterative reconstruction technique.
[2023-04-22 05:41] LABS: BASOPHILS % (AUTO) 0.6 % (0.0-3.0); EOSINOPHILS # (AUTO) 0.1 K/ul (0.0-0.7); EOSINOPHILS % (AUTO) 1.8 % (0.0-7.0); HEMATOCRIT 33.9 % (37.0-47.0); HEMOGLOBIN 10.7 g/dl (12.0-16.0); IMMATURE GRANULOCYTE # (AUTO) 0.1 (0.0-1.0); IMMATURE GRANULOCYTE % (AUTO) 0.8 % (0.0-5.0); LYMPHOCYTES # (AUTO) 1.2 K/uL (0.60-3.4); LYMPHOCYTES % (AUTO) 18.7 (10.0-50.0); MEAN CORPUSCULAR HEMOGLOBIN 30.1 pg (27.0-31.0); MEAN CORPUSCULAR HGB CONC 31.6 (31.8-35.4); MEAN CORPUSCULAR VOLUME 95.5 fl (81.0-99.0); MONOCYTES # (AUTO) 0.6 K/uL (0.4-2.0); MONOCYTES % (AUTO) 9.2 (0-10); NEUTROPHILS # (AUTO) 4.3 K/ul (2.0-6.9); NEUTROPHILS % (AUTO) 68.9 % (42.2-75.2); PLATELET COUNT 235 10^3/uL (140-440); RDW COEFFICIENT OF VARIATION 13.5 % (11.6-14.8); RED BLOOD COUNT 3.55 10^6/ul (4.20-5.40); WHITE BLOOD COUNT 6.19 K/ul (4.6-10.2)
[2023-04-22 05:50] LABS: ALANINE AMINOTRANSFERASE 16.5 U/L (0-35); ALBUMIN 3.57 g/dL (3.5-5.0); ALKALINE PHOSPHATASE 98.3 U/L (53-141); ASPARTATE AMINO TRANSFERASE 24.1 U/L (14-36); BILIRUBIN,TOTAL 0.29 mg/dL (0.2-1.3); BLOOD UREA NITROGEN 27.3 mg/dL (7-17); CALCIUM 9.06 mg/dL (8.4-10.2); CARBON DIOXIDE 27.6 mmol/L (22-30.0); CHLORIDE 109.4 mmol/L (98-107); CREATININE 1.22 mg/dL (0.60-1.30); GLUCOSE 111.4 mg/dL (74-106); POTASSIUM 4.01 mmol/L (3.5-5.1); SODIUM 139.6 mmol/L (134.5-145); TOTAL PROTEIN 6.94 g/dL (6.3-8.2)
[2023-04-22] MEDS: PROTONIX PO SCH ×2 (06:08→17:34)
[2023-04-22] MEDS: CARAFATE PO SCH ×4 (06:08→20:35)
[2023-04-22] MEDS: SYNTHROID PO SCH (06:08)
[2023-04-22] MEDS: LASIX TAB PO SCH (06:08)
[2023-04-22] MEDS ORDERED: LOVENOX SUBCUT SCH (09:00)
[2023-04-22] MEDS ORDERED: NON-FORMULARY MEDICATION (Aspirin 81 mg Tablet) PO SCH (09:00)
[2023-04-22] MEDS: ASPIRIN EC PO SCH (09:22)
[2023-04-22] MEDS: CELEXA PO SCH (09:23)
[2023-04-22] MEDS: VASOTEC PO SCH (09:23)
[2023-04-22] MEDS: DITROPAN XL PO SCH (09:24)
[2023-04-22] MEDS: SINGULAIR PO SCH (09:24)
[2023-04-22] MEDS: TOPROL XL PO SCH (09:24)
[2023-04-22] MEDS: PRAVACHOL PO SCH (09:25)
[2023-04-22] MEDS: ZYLOPRIM PO SCH (09:25)
[2023-04-22] MEDS: VANCOMYCIN 750 MG/150 ML BAG 750 MG/150 ML BAG IV SCH (09:26)
[2023-04-22] MEDS: NYSTOP POWDER TP SCH ×2 (09:26→20:35)
[2023-04-22] MEDS ORDERED: DIFLUCAN PO ONE (11:01)
--- NOTE | 2023-04-22 11:07 | PCM.PROG ---
Date/Time Seen Date Seen by Provider: 04/22/23 Time Seen by Provider: 08:30 Provider Provider: DAN[facility] TUBBS [facility] Chief Complaint Chief Complaint: Altered mental status Subjective Subjective: Patient feels at baseline today. Mentation at baseline. Feels sore all over. States she feels tired but she is always tired. Eating and drinking well. No fever. Has yeasty rash under breasts and in folds. No other rashes. No joint pain. Objective Appearance: Positive Well-appearing, Well-nourished, No Apparent Distress, Alert and Oriented x3 and Obese Chest/Lungs: Positive Symmetrical With Equal Breath Sounds, Clear to Auscultation Bilaterally and Other (Makes audible wheezing sound with upper airway, but lungs sound clear. ) Heart: Positive RRR GI/: Positive Soft, Nontender, Bowel Sounds Normal and No Distention Musculoskeletal: Positive Other (No redness, warmth or swelling of any joints. ); Negative Decreased ROM Neurological: Positive Cranial Nerves Intact, Alert, Oriented and Other (+generalized weakness ) Additional Findings: + yeasty rash with some mild excoriation under breasts and in folds, worst under left breast. Vital Signs Vital Signs: Vital Signs: Last 24 Hours 04/21/23 12:45 04/21/23 14:00 04/21/23 19:42 Temperature 98.4 F Temperature Source Oral Pulse Rate 73 Respiratory Rate 18 Blood Pressure 159/71 H Blood Pressure Mean 100 Blood Pressure Location Left Arm Blood Pressure Position Supine O2 Sat by Pulse Oximetry 95 98 Oxygen Delivery Method Nasal Cannula Nasal Cannula Oxygen Flow Rate 2 2 Telemetry Type Bedside Monitor Telemetry Monitoring Continues Telemetry Heart Rate 77 Telemetry SPO2 EKG NJ Interval 0.16 EKG QRS Interval 0.08 Telemetry Strip Reading SR 04/21/23 19:00 04/21/23 20:00 04/21/23 21:19 Temperature 98.0 F Temperature Source Temporal Artery Scan Pulse Rate 64 Respiratory Rate 20 Blood Pressure 135/70 Blood Pressure Mean 91 Blood Pressure Location Right Arm Blood Pressure Position Sitting O2 Sat by Pulse Oximetry 99 Oxygen Delivery Method Nasal Cannula Nasal Cannula Oxygen Flow Rate 2 2 Telemetry Type Remote Telemetry Telemetry Monitoring Continues Telemetry Heart Rate 68 Telemetry SPO2 EKG NJ Interval 0.12 EKG QRS Interval 0.08 Telemetry Strip Reading SR 04/22/23 01:00 04/22/23 05:13 04/22/23 05:18 Temperature 97.1 F L Temperature Source Temporal Artery Scan Pulse Rate 65 Respiratory Rate 18 Blood Pressure 126/72 Blood Pressure Mean 90 Blood Pressure Location Right Arm Blood Pressure Position Supine O2 Sat by Pulse Oximetry 97 99 Oxygen Delivery Method Nasal Cannula Room Air Oxygen Flow Rate 2 Telemetry Type Remote Telemetry Telemetry Monitoring Continues Telemetry Heart Rate 68 Telemetry SPO2 EKG NJ Interval 0.13 EKG QRS Interval 0.09 Telemetry Strip Reading SR 04/22/23 07:00 Temperature Temperature Source Pulse Rate Respiratory Rate Blood Pressure Blood Pressure Mean Blood Pressure Location Blood Pressure Position O2 Sat by Pulse Oximetry Oxygen Delivery Method Oxygen Flow Rate Telemetry Type Bedside Monitor Telemetry Monitoring Continues Telemetry Heart Rate 64 Telemetry SPO2 96 EKG NJ Interval 0.12 EKG QRS Interval 0.09 Telemetry Strip Reading SR Lab Results Lab Results: Lab Results: Last 24 Hours 04/22/23 04/21/23 05:00 12:28 WBC 6.19 RBC 3.55 L Hgb 10.7 L Hct 33.9 L MCV 95.5 MCH 30.1 MCHC 31.6 L RDW Coeff of Michael 13.5 Plt Count 235 Immature Gran % (Auto) 0.8 Neut % (Auto) 68.9 Lymph % (Auto) 18.7 [place] % (Auto) 9.2 Eos % (Auto) 1.8 Baso % (Auto) 0.6 Neut # (Auto) 4.3 Lymph # (Auto) 1.2 [place] # (Auto) 0.6 Eos # (Auto) 0.1 Baso # (Auto) 0.0 Immature Gran # (Auto) 0.1 Sodium 139.6 Potassium 4.01 Chloride 109.4 H Carbon Dioxide 27.6 Anion Gap 6.61 BUN 27.3 H Creatinine 1.22 Estimated GFR (MDRD) 42.00 BUN/Creatinine Ratio 22.37 Glucose 111.4 H Calcium 9.06 Total Bilirubin 0.29 AST 24.1 ALT 16.5 Alkaline Phosphatase 98.3 Total Creatine Kinase 118.9 CK-MB (CK-2) 2.670 H CK-MB (CK-2) % 2.2400 Total Protein 6.94 Albumin 3.57 Globulin 3.37 Albumin/Globulin Ratio 1.05 Additional Comments Additional Comments: I have independently reviewed and interpreted the labs/EKGs/imaging ordered during this hospital stay. I have reviewed outside records that are available in our EMR that pertain to medical stay including imaging/notes/labs from previous visits. EXAM: CHEST CT WITH INTRAVENOUS CONTRAST HISTORY: Bacteremia TECHNIQUE: CT acquisition of the chest from the thoracic inlet to the upper abdomen following IV contrast administration. 2-D coronal and sagittal reformatted images were obtained from the axial source images. CT Dose Reduction Techniques Performed: Yes. COMPARISON: 05/04/2021 FINDINGS: Lung Parenchyma and Airways: No focal consolidation or interstitial disease. Minimal left lower lobe scarring. No suspicious pulmonary nodule. No pleural e ffusion or thickening. No pneumothorax. Thoracic Inlet, Mediastinum, and Maegan: No mass. No lymphadenopathy. Heart, Vessels, and Pericardium: The main pulmonary artery is normal caliber. There is no central pulmonary embolism. The thoracic aorta is not dilated. The heart chambers are not enlarged. There is no pericardial effusion or thickening. There are coronary calcifications. Bones and Soft Tissues: Visualized bones are within normal limits. Chest wall soft tissues are unremarkable. Upper Abdomen: Small hiatal hernia. CT abdomen will be reported separately. IMPRESSION: 1. No pneumonia or acute intrathoracic or pulmonary process. EXAM: CT ABDOMEN AND PELVIS WITH CONTRAST HISTORY: Bacteremia TECHNIQUE: CT acquisition of the abdomen and pelvis from the lower thorax through the pelvis following IV contrast administration. 2-D coronal and sagittal reformatted images were obtained from the axial source images. CT Dose Reduction Techniques Performed: Yes. COMPARISON: 05/04/2020 FINDINGS: Lower Thorax: Reported separately Liver: No mass. Normal morphology. Biliary: Gallbladder is thick-walled and contracted. No biliary dilatation. Pancreas: No mass or evidence of pancreatitis. No duct dilation. Spleen: No mass. No splenomegaly. Calcified splenic granulomas. Adrenals: No mass. Kidneys/Ureters: No renal mass. No calculus or hydronephrosis. GI Tract: No bowel dilation. No bowel wall thickening. There is diverticulosis. Peritoneal Cavity: No ascites. No free air. No abdominal abscess. Retroperitoneum: No mass or fluid collection. Lymph Nodes: No lymphadenopathy. Vasculature: No aortic aneurysm. Pelvis: There has been hysterectomy. Bladder is normal. Bones/Soft Tissues: No fracture or lytic lesion. Visualized abdominal wall soft tissues are unremarkable. IMPRESSION: 1. No acute inflammatory process in the abdomen or pelvis. Chronic granulomatous disease. Diverticulosis. Hysterectomy. Active Medications Active Medications: Medications Generic Name Dose Route Start Last Admin Trade Name Tolu PRN Reason Stop Dose Admin Acetaminophen 650 mg 04/20/23 19:06 Acetaminophen 325 Mg Tablet PO Q4H PRN Mild Pain Allopurinol 100 mg 04/22/23 09:00 04/22/23 09:25 Allopurinol 100 Mg Tablet PO 100 mg DAILY KANDACE Administration Aspirin 81 mg 04/22/23 08:30 04/22/23 09:22 Aspirin 81 Mg Tablet.Dr PO 81 mg DAILYWM KANDACE Administration Citalopram Hydrobromide 20 mg 04/22/23 09:00 04/22/23 09:23 Citalopram Hydrobromide 20 Mg Tablet PO 20 mg DAILY KANDACE Administration Clonazepam 0.5 mg 04/21/23 13:36 Clonazepam 0.5 Mg Tablet PO BID PRN Anxiety Enalapril Maleate 10 mg 04/22/23 09:00 04/22/23 09:23 Enalapril Maleate 5 Mg Tablet PO 10 mg DAILY KANDACE Administration Enoxaparin Sodium 40 mg 04/22/23 09:00 04/22/23 09:26 Enoxaparin Sodium 40 Mg/0.4 Ml Syr SUBCUT 40 mg DAILY KANDCAE Administration Fluconazole 150 mg 04/22/23 11:01 Fluconazole 150 Mg Tablet PO 04/22/23 11:02 ONCE ONE Furosemide 20 mg 04/22/23 06:30 04/22/23 06:08 Furosemide 20 Mg Tablet PO 20 mg QDAC KANDACE Administration VANCOMYCIN/WATER FOR INJ (PEG) 750 mg in 150 mls @ 150 mls/hr 04/21/23 10:00 04/22/23 09:26 Vancomycin 750 Mg/150 Ml Bag IV 04/24/23 09:59 150 mls/hr DAILY KANDACE Administration Levothyroxine Sodium 75 mcg 04/22/23 06:30 04/22/23 06:08 Levothyroxine Sodium 75 Mcg Tablet PO 75 mcg QDAC KANDACE Administration Metoprolol Succinate 50 mg 04/22/23 09:00 04/22/23 09:24 Metoprolol Succinate 50 Mg Tab.Er.24h PO 50 mg DAILY KANDACE Administration Montelukast Sodium 10 mg 04/22/23 09:00 04/22/23 09:24 Montelukast Sodium 10 Mg Tablet PO 10 mg DAILY KANDACE Administration Nystatin 1 applic 04/20/23 21:00 04/22/23 09:26 Nystatin 15 Gm Powder TP 1 applic BID KANDACE Administration Ondansetron HCl 4 mg 04/20/23 19:06 Ondansetron Hcl/Pf 4 Mg/2 Ml Sdv IVP Q6H PRN Nausea / Vomiting Oxybutynin Chloride 5 mg 04/22/23 09:00 04/22/23 09:24 Oxybutynin Chloride 5 Mg Tab.Er.24 PO 5 mg DAILY KANDACE Administration Pantoprazole Sodium 40 mg 04/21/23 17:00 04/22/23 06:08 Pantoprazole Sodium 40 Mg Tablet. PO 40 mg BIDAC KANDACE Administration Pravastatin Sodium 40 mg 04/22/23 09:00 04/22/23 09:25 Pravastatin Sodium 40 Mg Tablet PO 40 mg DAILY KANDACE Administration Sodium Chloride 1 syr 04/20/23 11:57 04/20/23 20:30 0.9% Sodium Chloride 10 Ml Disp.Syrin IVF 1 syr PRN PRN Administration To flush IV Sucralfate 1 gm 04/21/23 17:00 04/22/23 06:08 Sucralfate 1 Gm Tablet PO 1 gm ACHS KANDACE Administration Plan Plan: 1. Bacteremia - Positive blood culture showing gram positive rods, second bottle showing gram positive cocci. Continue vanc. UA and CXR negative. Infection markers negative. Will await C&S. CT c/a/p negative for findings. 2. Acute hypoxic respiratory failure with associated encephalothy - suspect due to low O2. PO2 41 on ABG. Encephalopathy improved with O2 supplementation. At baseline today. Likely needs to wear her O2 all day. 3. TATO, stage I - Hydrated overnight, resolved. Continue home lasix. Eating and drinking well. 4. Hyperkalemia in setting of dehydration - Resolved. Restart home potassium supplement today. 5. COPD, not in exacerbation - Continue home meds and O2. 6. CAD - Cont asa 7. Hypertension - Continue home meds 8. Hyperlipidemia - Continue home meds 9. Hypothyroidism - TSH normal. Continue home meds 10. Candidasis of skin - Continue nystatin, diflucan 150 mg x1 given again today. 11. GERD - Continue home meds 12. OAB - Continue oxybutynin DVT Prophylaxis: Lovenox Review Statement Review Statement: I have personally discussed and reviewed the patient's visit/currently labs/imaging/decision making with Dr. Bond, my supervising attending. Greater that 50 minutes spent with patient, 50% of the time spent with this patient was devoted to counseling and coordination of care.
[2023-04-23 05:25] VITALS: BP 188/74; PULSE 56; RESP 18; TEMP 97.3
[2023-04-23] MEDS: SYNTHROID PO SCH (05:47)
[2023-04-23] MEDS: CARAFATE PO SCH (05:47)
[2023-04-23] MEDS: PROTONIX PO SCH (05:47)
[2023-04-23] MEDS: LASIX TAB PO SCH (05:47)
[2023-04-23 06:03] LABS: BASOPHILS % (AUTO) 0.6 % (0.0-3.0); EOSINOPHILS # (AUTO) 0.1 K/ul (0.0-0.7); EOSINOPHILS % (AUTO) 1.3 % (0.0-7.0); HEMATOCRIT 34.6 % (37.0-47.0); HEMOGLOBIN 10.9 g/dl (12.0-16.0); IMMATURE GRANULOCYTE # (AUTO) 0.1 (0.0-1.0); IMMATURE GRANULOCYTE % (AUTO) 0.7 % (0.0-5.0); LYMPHOCYTES # (AUTO) 1.2 K/uL (0.60-3.4); LYMPHOCYTES % (AUTO) 16.6 (10.0-50.0); MEAN CORPUSCULAR HEMOGLOBIN 29.9 pg (27.0-31.0); MEAN CORPUSCULAR HGB CONC 31.5 (31.8-35.4); MEAN CORPUSCULAR VOLUME 95.1 fl (81.0-99.0); MONOCYTES # (AUTO) 0.5 K/uL (0.4-2.0); MONOCYTES % (AUTO) 7.6 (0-10); NEUTROPHILS # (AUTO) 5.2 K/ul (2.0-6.9); NEUTROPHILS % (AUTO) 73.2 % (42.2-75.2); PLATELET COUNT 238 10^3/uL (140-440); RDW COEFFICIENT OF VARIATION 13.4 % (11.6-14.8); RED BLOOD COUNT 3.64 10^6/ul (4.20-5.40); WHITE BLOOD COUNT 7.12 K/ul (4.6-10.2)
[2023-04-23 06:52] LABS: ALANINE AMINOTRANSFERASE 17.5 U/L (0-35); ALBUMIN 3.81 g/dL (3.5-5.0); ALKALINE PHOSPHATASE 91.8 U/L (53-141); ASPARTATE AMINO TRANSFERASE 23.2 U/L (14-36); BILIRUBIN,TOTAL 0.3 mg/dL (0.2-1.3); BLOOD UREA NITROGEN 26.6 mg/dL (7-17); CALCIUM 9.24 mg/dL (8.4-10.2); CARBON DIOXIDE 27.8 mmol/L (22-30.0); CHLORIDE 109.5 mmol/L (98-107); CREATININE 1.31 mg/dL (0.60-1.30); GLUCOSE 104.9 mg/dL (74-106); POTASSIUM 3.91 mmol/L (3.5-5.1); SODIUM 140.7 mmol/L (134.5-145); TOTAL PROTEIN 7.28 g/dL (6.3-8.2)
[2023-04-23] MEDS ORDERED: MICRO-K CAP PO SCH (08:30)
[2023-04-23] MEDS: VASOTEC PO SCH (08:36)
[2023-04-23] MEDS: CELEXA PO SCH (08:36)
[2023-04-23] MEDS: SINGULAIR PO SCH (08:36)
[2023-04-23] MEDS: NYSTOP POWDER TP SCH (08:37)
[2023-04-23] MEDS: PRAVACHOL PO SCH (08:37)
[2023-04-23] MEDS: DITROPAN XL PO SCH (08:37)
[2023-04-23] MEDS: ZYLOPRIM PO SCH (08:37)
[2023-04-23] MEDS: ASPIRIN EC PO SCH (08:38)
[2023-04-23] MEDS: TOPROL XL PO SCH (08:38)
[2023-04-23] MEDS ORDERED: LOVENOX SUBCUT SCH (09:00)
--- NOTE | 2023-04-23 09:40 | DCSUM ---
Admission Date Admission Date: 04/20/23 Discharge Date Discharge Date: 04/23/23 Admission Diagnosis Admission Diagnosis: 1. Acute hypoxic respiratory failure with associated encephalothy 2. TATO, stage I 3. Hyperkalemia in setting of dehydration Discharge Diagnosis Discharge Diagnosis: 1. Bacteremia, resolved likely contaminant 2. Acute hypoxic respiratory failure with associated encephalothy, resolved 3. TATO, stage I, resolved 4. Hyperkalemia in setting of dehydration - Resolved 5. COPD, not in exacerbation 6. CAD 7. Hypertension 8. Hyperlipidemia 9. Hypothyroidism 10. Candidasis of skin 11. GERD 12. [facility] Hospital Provider Hospital Provider: DANNA TUBBS PA-C, [facility] Primary Care Physician Primary Care Physician: APOLINAR BARNES MD Summary of History and Physical Summary of History and Physical: Patient is a 88 year old female with pmhx of chf, chronic respiratory failure, copd, depression, hypothyroidism, CAD, dementia, CKD, gout who presented to ER from home for confusion, hallucinations, and hypoxia. Patient wears 2L at night at baseline. She was found in her home very confused, seeing people who weren't there. She was found by EMS to be hypoxic, unclear how hypoxic. ABG in ER showed PO2 of 41. CXR negative. Patient recovered well with 2L. CT head negative. Labs unremarkable except for Cr bumped at 2 and BUN elevated as well. UA negative for infection. On my evaluation this morning patient is alert and oriented x3. She is able to contribute some to her pmhx. She is able to recall that she usually has a UTI when she gets confused like that. She denies symptoms. 1 out of 4 blood culture bottles has become positive for gram positive rods today. Hospital Course Subjective: Patient was treated with vancomycin due to gram-positive rods growing in one of her blood cultures. This was thought to likely be a contaminant but would await final results. A second blood culture bottle popped positive for gram-positive cocci. She was continued on vancomycin. CT chest abdomen and pelvis was performed to rule out any underlying infection. All were negative. She did not have any notable cellulitis. She only had yeast in her folds which did not look cellulitic. She did not run a fever. White blood cell count, Pro-Alonzo and lactic acid have been normal. Her mentation has been at her baseline. No diarrhea or vomiting. Ultimately all of her cultures have been no growth as of discharge other than there is one pending gram-positive young that has been sent out. It is felt that the this has been due to contaminant and no further antibiotics are warranted. Unclear etiology on her initial altered mental status. UA was negative. Only finding was that she was very hypoxic on her ABG. Initially thought maybe she needs to wear her oxygen all the time however she has not been hypoxic throughout the day while here without her oxygen. Discussed this with her son James. Unable to reach her daughter Ana María, called multiple times. Discharge home today. Case management not available on weekends, will leave note to have them look into home health for patient if she doesn't have it already. Appearance: Pleasant, No Apparent Distress, Alert, Well-appearing and Well- nourished HEENT: MMM and Supple CVS: No Murmur Abdomen: Soft, Non-Tender and No Distention Respiratory: No Dyspnea Extremities: Other (1+ pitting edema nayla lower ext. ) Additional Findings: Yeast rash in folds. Vital Signs: Most Recent Vital Signs Temperature 97.3 F L 04/23/23 05:23 Temperature Source Oral 04/23/23 05:23 Temperature Source Infrared 04/20/23 11:32 Pulse Rate 56 L 04/23/23 05:23 Respiratory Rate 18 04/23/23 05:23 Blood Pressure 188/74 H 04/23/23 05:23 Blood Pressure Mean 112 04/23/23 05:23 Blood Pressure Left Arm 143/64 04/20/23 17:57 Blood Pressure Location Right Arm 04/23/23 05:23 Blood Pressure Position Supine 04/23/23 05:23 O2 Sat by Pulse Oximetry 100 04/23/23 05:23 Oxygen Delivery Method Nasal Cannula 04/23/23 05:23 Oxygen Flow Rate 2 04/23/23 05:23 Height 5 ft 1 in 04/21/23 09:06 Weight 170 lb 04/20/23 17:57 Telemetry Type Bedside Monitor 04/23/23 07:00 Telemetry Monitoring Continues 04/23/23 01:00 Irregular Telemetry Rate (Approximate) 50-60 BPM 04/23/23 07:00 Telemetry Heart Rate 51 L 04/23/23 07:00 Telemetry SPO2 100 04/23/23 01:00 EKG UT Interval 0.13 04/23/23 07:00 EKG QRS Interval 0.13 H 04/23/23 07:00 EKG QT Interval 0.36 04/23/23 01:00 Telemetry Strip Reading Sinus Arrhythmia with BBB 04/23/23 07:00 Imaging: EXAM: CT HEAD WITHOUT CONTRAST 04/20/2023. SAGITTAL AND CORONAL REFORMATTED IMAGES OBTAINED HISTORY: Mental status changes COMPARISON: 06/02/2022 FINDINGS: There is no evidence of intracranial hemorrhage. The midline is maintained. There is no hydrocephalus. Generalized atrophy. Chronic small vessel ischemic change. Chronic benign bilateral basal ganglia calcification. Chronic benign right frontal periventricular calcification. No cerebellar tonsillar ectopia. Evaluation of the calvarium shows no fracture. The mastoid air cells are normally pneumatized. IMPRESSION: No acute intracranial abnormality. Stable chronic findings. No acute change. EXAM: CHEST ONE-VIEW HISTORY: Mental status change COMPARISON: June 02 2022 FINDINGS: Cardiac silhouette and mediastinum are normal. There is no pulmonary infiltrate.There is no pleural effusion. Skeletal structures unremarkable IMPRESSION: Negative chest. No active cardiopulmonary disease EXAM: CHEST CT WITH INTRAVENOUS CONTRAST HISTORY: Bacteremia TECHNIQUE: CT acquisition of the chest from the thoracic inlet to the upper abdomen following IV contrast administration. 2-D coronal and sagittal reformatted images were obtained from the axial source images. CT Dose Reduction Techniques Performed: Yes. COMPARISON: 05/04/2021 FINDINGS: Lung Parenchyma and Airways: No focal consolidation or interstitial disease. Minimal left lower lobe scarring. No suspicious pulmonary nodule. No pleural effusion or thickening. No pneumothorax. Thoracic Inlet, Mediastinum, and Maegan: No mass. No lymphadenopathy. Heart, Vessels, and Pericardium: The main pulmonary artery is normal caliber. There is no central pulmonary embolism. The thoracic aorta is not dilated. The heart chambers are not enlarged. There is no pericardial effusion or thickening. There are coronary calcifications. Bones and Soft Tissues: Visualized bones are within normal limits. Chest wall soft tissues are unremarkable. Upper Abdomen: Small hiatal hernia. CT abdomen will be reported separately. IMPRESSION: 1. No pneumonia or acute intrathoracic or pulmonary process. EXAM: CT ABDOMEN AND PELVIS WITH CONTRAST HISTORY: Bacteremia TECHNIQUE: CT acquisition of the abdomen and pelvis from the lower thorax through the pelvis following IV contrast administration. 2-D coronal and sagittal reformatted images were obtained from the axial source images. CT Dose Reduction Techniques Performed: Yes. COMPARISON: 05/04/2020 FINDINGS: Lower Thorax: Reported separately Liver: No mass. Normal morphology. Biliary: Gallbladder is thick-walled and contracted. No biliary dilatation. Pancreas: No mass or evidence of pancreatitis. No duct dilation. Spleen: No mass. No splenomegaly. Calcified splenic granulomas. Adrenals: No mass. Kidneys/Ureters: No renal mass. No calculus or hydronephrosis. GI Tract: No bowel dilation. No bowel wall thickening. There is diverticulosis. Peritoneal Cavity: No ascites. No free air. No abdominal abscess. Retroperitoneum: No mass or fluid collection. Lymph Nodes: No lymphadenopathy. Vasculature: No aortic aneurysm. Pelvis: There has been hysterectomy. Bladder is normal. Bones/Soft Tissues: No fracture or lytic lesion. Visualized abdominal wall soft tissues are unremarkable. IMPRESSION: 1. No acute inflammatory process in the abdomen or pelvis. Chronic granulomatous disease. Diverticulosis. Hysterectomy. Lab Results Last 24 Hours: 04/23/23 05:55 WBC 7.12 RBC 3.64 L Hgb 10.9 L Hct 34.6 L MCV 95.1 MCH 29.9 MCHC 31.5 L RDW Coeff of Michael 13.4 Plt Count 238 Immature Gran % (Auto) 0.7 Neut % (Auto) 73.2 Lymph % (Auto) 16.6 [place] % (Auto) 7.6 Eos % (Auto) 1.3 Baso % (Auto) 0.6 Neut # (Auto) 5.2 Lymph # (Auto) 1.2 [place] # (Auto) 0.5 Eos # (Auto) 0.1 Baso # (Auto) 0.0 Immature Gran # (Auto) 0.1 Sodium 140.7 Potassium 3.91 Chloride 109.5 H Carbon Dioxide 27.8 Anion Gap 7.31 BUN 26.6 H Creatinine 1.31 H Estimated GFR (MDRD) 38.00 BUN/Creatinine Ratio 20.30 Glucose 104.9 Calcium 9.24 Total Bilirubin 0.30 AST 23.2 ALT 17.5 Alkaline Phosphatase 91.8 Total Protein 7.28 Albumin 3.81 Globulin 3.47 Albumin/Globulin Ratio 1.09 Discharge Instructions Discharge Planning: Discharge Planning > [address] Marlin Barnes. Discharge Medications: Medications at Discharge (Home Meds & RX) aspirin 81 mg tablet 81 mg PO DAILY 06/02/22 enalapril maleate 10 mg tablet (Vasotec) 10 mg PO QDAY #90 tabs 02/06/23 potassium chloride 10 mEq tablet,extended release(part/cryst) 10 meq PO QDAY #90 tabs 02/06/23 cholecalciferol (vitamin D3) 1,250 mcg (50,000 unit) capsule 1,250 mcg PO QWEEK #12 caps 02/07/23 allopurinol 100 mg tablet See Rx Instructions .Route .COMPLEX #30 tabs 03/03/23 citalopram 20 mg tablet See Rx Instructions .Route .COMPLEX #30 tabs 03/03/23 clonazepam 0.5 mg tablet 0.5 mg PO BID PRN anxiety #60 tabs 03/03/23 furosemide 20 mg tablet See Rx Instructions .Route .COMPLEX #30 tabs 03/03/23 levothyroxine 75 mcg tablet See Rx Instructions .Route .COMPLEX #30 tabs 03/03/23 metoprolol succinate 50 mg tablet,extended release 24 hr See Rx Instructions .Route .COMPLEX #30 tabs 03/03/23 montelukast 10 mg tablet See Rx Instructions .Route .COMPLEX #30 tabs 03/03/23 nystatin 100,000 unit/gram topical powder See Rx Instructions .Route .COMPLEX #60 grams 03/03/23 oxybutynin chloride 5 mg tablet,extended release 24 hr See Rx Instructions .Route .COMPLEX #30 tabs 03/03/23 pantoprazole 40 mg tablet,delayed release See Rx Instructions .Route .COMPLEX #60 tabs 03/03/23 polysaccharide iron complex 150 mg iron capsule (iFerex 150) See Rx Instructions .Route .COMPLEX #30 caps 03/03/23 pravastatin 80 mg tablet See Rx Instructions .Route .COMPLEX #30 tabs 03/03/23 sucralfate 1 gram tablet See Rx Instructions .Route .COMPLEX #120 caps 03/03/23 tramadol 50 mg tablet 50 mg PO TID PRN pain #90 tabs 03/03/23 triamcinolone acetonide 0.1 % topical cream See Rx Instructions .Route .COMPLEX #80 grams 03/03/23 Discharge Plan Discharge Discharge Orders: Discharge Patient (ONCE); Ordered 04/23/23 Ordered By: DANNA TUBBS Activity Restrictions/Additional Instructions: DISCHARGE TO HOME DX: AMS DIET: HEART HEALTHY ACTIVITY: TOLERATED, FALL PRECAUTIONS NO NEW MEDICATIONS YOU HAVE A FOLLOW UP APPOINTMENT WITH DR. BARNES'S OFFICE ON April AT 9:20AM SHOULD YOU NEED TO RESCHEDULE OR HAVE ANY QUESTIONS YOU CAN CONTACT THEIR OFFICE AT [phone]. Instructions: Altered Mental Status (GEN) Care Plan Goals: Problem: Confusion Goal #1: Maintain safety Instructions: Assess home environment for risk for falls Maintain schedule and do not vary Goal #2: Maximize level of independence Instructions: Encourage family involvement Patient Disposition: HOME SELF-CARE Prescriptions: Continued cholecalciferol (vitamin D3) 1,250 mcg (50,000 unit) capsule 1,250 mcg PO QWEEK Qty: 12 0RF nystatin 100,000 unit/gram powder See Rx Instructions .ROUTE .COMPLEX Qty: 60 2RF Dose Instruction: APPLY TO AFFECTED AREA(S) TWICE DAILY Rx Instructions: APPLY TO AFFECTED AREA(S) TWICE DAILY triamcinolone acetonide 0.1 % cream See Rx Instructions .ROUTE .COMPLEX Qty: 80 2RF Dose Instruction: APPLY UP TO THREE TIMES DAILY NEEDED Rx Instructions: APPLY UP TO THREE TIMES DAILY NEEDED polysaccharide iron complex [iFerex 150] 150 mg iron capsule See Rx Instructions .ROUTE .COMPLEX Qty: 30 2RF Dose Instruction: TAKE ONE CAPSULE DAILY Rx Instructions: TAKE ONE CAPSULE DAILY furosemide 20 mg tablet See Rx Instructions .ROUTE .COMPLEX Qty: 30 2RF Dose Instruction: TAKE ONE TABLET DAILY Rx Instructions: TAKE ONE TABLET DAILY sucralfate 1 gram tablet See Rx Instructions .ROUTE .COMPLEX Qty: 120 2RF Dose Instruction: TAKE ONE TABLET BEFORE MEALS AND AT BEDTIME FOR 30 DAYS DIRECTED Rx Instructions: TAKE ONE TABLET BEFORE MEALS AND AT BEDTIME FOR 30 DAYS DIRECTED levothyroxine 75 mcg tablet See Rx Instructions .ROUTE .COMPLEX Qty: 30 2RF Dose Instruction: TAKE ONE TABLET DAILY Rx Instructions: TAKE ONE TABLET DAILY clonazepam 0.5 mg tablet 0.5 mg PO BID PRN (Reason: anxiety) Qty: 60 0RF citalopram 20 mg tablet See Rx Instructions .ROUTE .COMPLEX Qty: 30 2RF Dose Instruction: TAKE ONE TABLET DAILY Rx Instructions: TAKE ONE TABLET DAILY pravastatin 80 mg tablet See Rx Instructions .ROUTE .COMPLEX Qty: 30 2RF Dose Instruction: TAKE ONE TABLET DAILY Rx Instructions: TAKE ONE TABLET DAILY pantoprazole 40 mg tablet,delayed release (DR/EC) See Rx Instructions .ROUTE .COMPLEX Qty: 60 2RF Dose Instruction: TAKE ONE TABLET TWICE DAILY Rx Instructions: TAKE ONE TABLET TWICE DAILY metoprolol succinate 50 mg tablet extended release 24 hr See Rx Instructions .ROUTE .COMPLEX Qty: 30 2RF Dose Instruction: TAKE ONE TABLET DAILY Rx Instructions: TAKE ONE TABLET DAILY montelukast 10 mg tablet See Rx Instructions .ROUTE .COMPLEX Qty: 30 2RF Dose Instruction: TAKE ONE TABLET ONCE DAILY Rx Instructions: TAKE ONE TABLET ONCE DAILY allopurinol 100 mg tablet See Rx Instructions .ROUTE .COMPLEX Qty: 30 2RF Dose Instruction: TAKE ONE TABLET DAILY Rx Instructions: TAKE ONE TABLET DAILY tramadol 50 mg tablet 50 mg PO TID PRN (Reason: pain) Qty: 90 0RF oxybutynin chloride 5 mg tablet extended release 24hr See Rx Instructions .ROUTE .COMPLEX Qty: 30 2RF Dose Instruction: TAKE ONE TABLET DAILY Rx Instructions: TAKE ONE TABLET DAILY aspirin 81 mg Tablet 81 mg PO DAILY potassium chloride 10 mEq tablet,ER particles/crystals 10 meq PO QDAY Qty: 90 1RF enalapril maleate [Vasotec] 10 mg tablet 10 mg PO QDAY Qty: 90 1RF Did you review [place] CRT for ALL controlled substances?: Not Applicable Discussed opioids are addictive and Narcan is available by prescription or from pharmacy.: No Condition: Stable
[2023-04-26 12:38] LABS: BACTERIA IDENTIFICATION Final report (.)
== END 2023-04-23 11:25 | disposition home or self-care (01) | DRG 70 ==
LOC: SCU 11:30 → ED 11:30 → SCU 17:55
PROVIDERS: ADMIT Physician Assistant; ATTEND Physician Assistant
DX: J96.01 Acute respiratory failure with hypoxia; J44.9 Chronic obstructive pulmonary disease, unspecified; G93.49 Other encephalopathy; R78.81 Bacteremia; F32.A Depression, unspecified; N39.0 Urinary tract infection, site not specified; N17.9 Acute kidney failure, unspecified; E78.5 Hyperlipidemia, unspecified; R41.82 Altered mental status, unspecified; E03.9 Hypothyroidism, unspecified; I11.0 Hypertensive heart disease with heart failure; E86.0 Dehydration